=== PATIENT | male | born 1940 | race Caucasian/White ===

== ENCOUNTER 2017-06-05 11:13 | Inpatient (IN) ==
[2017-06-05] MEDS ORDERED: Ondansetron 4 MG/2 ML VIAL IVP ONE ×2 (11:28→13:29)
[2017-06-05] MEDS ORDERED: 0.9 % Sodium Chloride 1,000 ML IVC ONE (11:28)
[2017-06-05 11:43] LABS: Basophils % 0.3 %; Eosinophils # 0.1 K/mcL (0.0-0.6); Eosinophils % 1.1 %; Hematocrit 36.5 % (37.5-50.1); Immature Granulocytes % 0.5 % (0-4); Lymphocytes # 1.3 K/mcL (0.6-4.6); Lymphocytes % 14.4 %; Mean Corpuscular HGB Conc 32.9 g/dL (31.6-35.5); Mean Corpuscular Hemoglobin 27.1 pg (28.0-33.3); Mean Corpuscular Volume 82.6 fL (83.0-100.0); Mean Platelet Volume 9.2 fL (9.4-12.4); Monocytes # 0.7 K/mcL (0.0-1.3); Monocytes % 7.5 %; Neutrophils # 6.7 K/mcL (1.6-8.9); Platelet Count 256 K/mcL (140-400); Red Blood Count 4.42 M/mcL (4.19-5.50); Red Cell Distribution Width 12.8 % (11.5-14.5); Segmented Neutrophils % 76.2 %
--- NOTE | 2017-06-05 11:45 | Emergency Department Note ---
Disposition Clinical Impression: Lytic bone lesion of hip, Lesion of lumbar spine, Liver metastasis Disposition: Admitted As Inpatient Condition: Fair Referrals: Mundo Grewal MD [Primary Care Provider] - Forms: ED Satisfaction Letter, Work/School Release General Adult HPI - General Chief complaint: ED Abdominal Pain Stated complaint: R flank pain Time Seen by Provider: 06/05/17 11:22 Source: patient Mode of arrival: private vehicle Limitations: no limitations Nursing Notes Reviewed: Yes Vital Signs Reviewed: Yes - History of Present Illness HPI Narrative: 77-year-old male history of diabetes, hypertension, hyperlipidemia presents to the ER due to right-sided pain. Patient states he has had it for several days. He was seen by his primary care provider who performed x-rays and was also concern for maybe shingles without the rash it. Reports that he gave him some narcotics but those seem to make him sick. He continued to have pain and had nausea and vomiting this morning which prompted him to come here. He denies chest pain or shortness of breath. Distal nauseated this morning with some vomiting. No dysuria or hematuria. No history of kidney stones. Did have an abdominal surgery for hernia repair with mesh in the past. Does report that this pain worsened after he was coughing. No other complaints. Pt Subjective Complaint: Right flank and right rib pain Onset (ago): day(s) Location: chest (Right ribs) Radiation: non-radiation Pain Severity: severe Pain Scale: 10 Consistency: intermittent Improves with: nothing Worsens with: other (Palpation) Associated symptoms: Reports: cough, nausea/vomiting. Denies: chest pain, fever /chills Treatments Prior to Arrival: other (Analgesic) - Related Data Home Medications Medication Instructions Recorded Confirmed Blood Pressure Medication 02/28/17 Previous Rx's Medication Instructions Recorded Lisinopril/Hydrochlorothiazide 1 each PO DAILY #30 tablet 02/28/17 [Zestoretic 20-25 mg Tablet] Allergies Allergy/AdvReac Type Severity Reaction Status Date / Time metformin AdvReac Gastrointestinal Verified 06/05/17 13:55 Upset All systems ED: reviewed and negative except as stated. Constitutional: Denies: fever Cardiovascular: Denies: chest pain Respiratory: Reports: cough. Denies: dyspnea Gastrointestinal: Reports: nausea, vomiting. Denies: abdominal pain, diarrhea Genitourinary: Denies: dysuria, hematuria Past Medical History - Past Medical History Attestation: Yes The following information was validated with the patient. Source: patient Medical history: Reports: diabetes, hypertension Psychiatric history: Reports: no psych history - Social History Smoking Status: Never smoker Smokeless Tobacco Status: No Alcohol use: Reports: none Drug use: Reports: none Physical Exam - General Limitations: no limitations General appearance: alert, in no apparent distress - Head Head exam: atraumatic - Eye Eye exam: Present: normal appearance - ENT ENT exam: normal exam - Neck Neck exam: Present: normal inspection, full ROM - Chest Chest inspection: Present: normal inspection, symmetric chest wall rise, tenderness (Right lower lateral rib tenderness without overlying skin changes.) - Respiratory Respiratory exam: Present: normal lung sounds bilaterally - Cardiovascular Cardiovascular exam: Present: regular rate, normal rhythm, normal heart sounds - Abdominal Exam Abdominal exam: Present: soft, tenderness (There is mild tenderness in the right upper quadrant without Andrews sign, distention, or rigidity.) - Extremities Exam Extremities exam: Present: normal inspection, full ROM - Expanded Upper Extremity Exam Shoulder exam: Present: normal inspection, full ROM Arm exam: Present: normal inspection, full ROM Elbow exam: Present: normal inspection, full ROM Forearm/Wrist exam: Present: normal inspection, full ROM Hand exam: Present: normal inspection, full ROM - Expanded Lower Extremity Exam Hip/Pelvis exam: Present: normal inspection, full ROM Upper leg exam: Present: normal inspection, full ROM Knee exam: Present: normal inspection, full ROM Lower leg exam: Present: normal inspection, full ROM Ankle exam: Present: normal inspection, full ROM Foot/toe exam: Present: normal inspection, full ROM Neurovascular/Tendon exam: Absent: motor deficit, sensory deficit - Neurological Exam Neurological exam: Present: alert - Psychiatric Psychiatric exam: Present: normal affect, normal mood - Skin Skin exam: Present: warm, dry, intact Course Course Narrative: Patient seen and examined. We will obtain right rib x-rays as well as a CT scan of the abdomen and pelvis and labs. - Reevaluation(s) Reevaluation #1: I discussed the findings of the CT scan as well as labs with the patient and family present. Discussed concern for underlying malignancy with metastasis. He is agreeable to staying in the hospital and having his workup started as an inpatient. - Consultations Consultation #1: I spoke with the on-call oncologist concerning the patient's CT findings. They report given lytic lesions in his probably in the patient's best interest to be admitted to the hospital for workup. Oncology will see in consultation admitted to the hospitalist service. Vital Signs Temperature 97.7 F 06/05/17 11:14 Pulse Rate 72 06/05/17 11:14 Respiratory Rate 20 06/05/17 11:14 Blood Pressure 146/76 06/05/17 11:14 O2 Sat by Pulse Oximetry 94 06/05/17 11:14 Temperature 97.7 F 06/05/17 11:14 Pulse Rate 72 06/05/17 11:14 Respiratory Rate 20 06/05/17 11:14 Blood Pressure 146/76 06/05/17 11:14 O2 Sat by Pulse Oximetry 94 06/05/17 11:14 Oxygen Delivery Oxygen Delivery Room Air Medical Decision Making - MDM Narrative Medical decision making narrative: 77-year-old gentleman presents to the ER due to right flank pain and right upper quadrant pain. Recently worked up by his PCP with x-ray showing no acute findings. CT scan here demonstrates concern for metastatic malignancy. He has lesions noted to his liver as well as pelvis and abdominal lymphadenopathy. There are lytic lesions in his pelvis as well as his lumbar spine. Case discussed with oncology who recommended admission to the hospitalist service. Patient is accepted for further inpatient workup. - Lab Data Lab results reviewed: Yes I reviewed the patient's lab results. Result diagrams: 06/05/17 11:33 06/05/17 11:33 Lab Results 06/05/17 06/05/17 06/05/17 Range/Units 11:33 11:33 12:49 WBC 8.8 (4.3-11.1) K/mcL RBC 4.42 (4.19-5.50) M/mcL Hgb 12.0 L (12.9-16.9) g/dL Hct 36.5 L (37.5-50.1) % MCV 82.6 L (83.0-100.0) fL MCH 27.1 L (28.0-33.3) pg MCHC 32.9 (31.6-35.5) g/dL RDW 12.8 (11.5-14.5) % Plt Count 256 (140-400) K/mcL MPV 9.2 L (9.4-12.4) fL Immature Gran % 0.5 (0-4) % Seg Neutrophils % 76.2 % Lymphocytes % 14.4 % Monocytes % 7.5 % Eosinophils % 1.1 % Basophils % 0.3 % Neutrophils # 6.7 (1.6-8.9) K/mcL Lymphocytes # 1.3 (0.6-4.6) K/mcL Monocytes # 0.7 (0.0-1.3) K/mcL Eosinophils # 0.1 (0.0-0.6) K/mcL Basophils # 0.0 (0.0-0.2) K/mcL Sodium 135 L (136-145) mEq/L Potassium 4.1 (3.5-4.5) mEq/L Chloride 102 (98-109) mEq/L Carbon Dioxide 23 (19-29) mEq/L BUN 29 H (8-26) mg/dL Creatinine 1.02 (0.72-1.25) mg/dL Est GFR ( Amer) > 60 (> 60) Est GFR (Non-Af Amer) > 60 (> 60) BUN/Creatinine Ratio 28 H (6-26) Glucose 208 H (70-99) mg/dL Calculated Osmolality 292 (280-300) Calcium 10.6 (8.6-10.8) mg/dL Total Bilirubin 0.8 (0.2-1.2) mg/dL Direct Bilirubin 0.4 (0.0-0.5) mg/dL Indirect Bilirubin 0.4 (0.0-1.2) mg/dL AST 29 (5-34) Units/L ALT 31 (0-55) Units/L Alkaline Phosphatase 375 H (38-126) Units/L Serum Total Protein 9.0 H (6.0-8.3) g/dL Albumin 3.5 (3.5-5.0) g/dL Globulin 5.5 H (2.4-3.5) g/dL Albumin/Globulin Ratio 0.6 L (1.1-2.2) Lipase 36 (8-78) Units/L Urine Color Yellow (Yellow) Urine Clarity Clear (Clear) Urine pH 6.0 (5.0-8.0) pH Units Ur Specific [place] 1.024 (1.010-1.025) Urine Protein Negative (Neg-Trace) mg/dL Urine Glucose (UA) Normal (Normal) mg/dL Urine Ketones Negative (Negative) mg/dL Urine Blood Negative (Negative) Urine Nitrite Negative (Negative) Urine Bilirubin Negative (Negative) Urine Urobilinogen Normal (Normal) mg/dL Ur Leukocyte Esterase Negative (Negative) Ur Culture Indicated? NO (NO) - Radiology Data Radiology results reviewed: Yes I reviewed the patient's radiology results. Ribs w/Chest X-Ray 06/05/17 11:35 IMPRESSION: No acute cardiopulmonary disease. No acute osseous abnormality of the right ribs. D/ / John Loja MD / John Loja MD Interpreting Provider: John Loja MD Abdomen/Pelvis CT 06/05/17 12:04 IMPRESSION: Findings consistent with metastatic disease involving the liver, pelvis and abdominal lymph nodes. No definite primary is visualized. Large liver lesion would be amenable to percutaneous biopsy. Several pulmonary nodules are indeterminate and could represent metastatic disease. Nonobstructing nephrolithiasis and several calculi within the bladder. Bladder wall thickening is likely secondary to outlet obstruction from marked prostatomegaly, however this could be further evaluated with cystoscopy. Findings were discussed with Arnel Guthrie at 1:00 pm on 06/05/2017. D/ / Sundeep Noble MD / Sundeep Noble MD Interpreting Provider: Sundeep Noble MD - EKG Data EKG #1 EKG attestation: Yes I reviewed and interpreted this EKG. EKG results narrative: EKG demonstrates sinus rhythm with a rate of 64 bpm. Normal axis. Normal intervals. Normal R-wave progression. No gross ST elevations or depressions. No acute ischemic findings. S.B.A.R. - S.B.A.R. Situation: Demographics, MOA Background: Presenting Complaint, Relevant PMH, Meds, & Allergies Assessment: Course and respsone to treatment, Patient/Family Expectation, Pertinant Lab Results Recommendation: Barrier(s) to disposition, Recommendation based on pending studies, treatments, or consults S.B.A.R. Report Given to: Jamel Mcclain Repor Time: 13:56 Attestation Statement - Attestation Attestation: Patient was seen with resident physician. I reviewed the history, physical, assessment and plan, and agree with the findings. I also personally evaluated this patient and had [id number] time with this patient. 77 show male presents to emergency department for right upper quadrant and right flank pain. Patient states the discomfort started after coughing and sneezing episodes. No hurts with deep inspiration and with pressure on his lateral right rib cage. He has also had some right upper quadrant pain that seems to radiate around to the side. No nausea vomiting or diarrhea no fevers or chills no chest pain or shortness of breath. He had something similar to this in the past and it was thought he may have early shingles, but no rash ever developed. On exam vital signs are stable. ENT is unremarkable. Heart lungs are normal. Chest wall patient has reproducible tenderness of the lateral aspect of the right rib cage distally. This lower portion of the ribs are very tender to palpation there is no crepitance that can be noted. Examination of the abdomen did not reveal any tenderness in the right upper quadrant on the left side he did have a little bit of flank tenderness which seems to be related to the pressure applies to the rib cage when pushing on that area. Extremities are unremarkable. Neurologically is patient is intact. ED course we will do a thorough workup to ensure there is no intra-abdominal problems. Patient is been seen multiple times for this problem without a specific clinical diagnosis. We will also get rib x-rays and labs. X-rays are okay. CT scan however revealed pretty extensive metastatic disease throughout the abdomen including the bones also including with an enlarged prostate. This does explain sort of the mobility of the patient's pain as he has had it in different locations. We spoke with oncology who suggested admitting the patient for more extensive and rapid evaluation and treatment is seems at this disease has somewhat extensively spread. Patient was comfortable with admission. He was informed of the CT scan results. We then contacted the hospitalist to arrange admission.. I agree with the resident physician assessment and plan.
[2017-06-05 11:57] LABS: Alanine Aminotransferase 31 Units/L (0-55); Albumin 3.5 g/dL (3.5-5.0); Albumin/Globulin Ratio 0.6 (1.1-2.2); Alkaline Phosphatase 375 Units/L (38-126); Aspartate Amino Transferase 29 Units/L (5-34); BUN/Creatinine Ratio 28 (6-26); Bilirubin,Direct 0.4 mg/dL (0.0-0.5); Bilirubin,Indirect 0.4 mg/dL (0.0-1.2); Bilirubin,Total 0.8 mg/dL (0.2-1.2); Blood Urea Nitrogen 29 mg/dL (8-26); Calcium 10.6 mg/dL (8.6-10.8); Carbon Dioxide 23 mEq/L (19-29); Chloride 102 mEq/L (98-109); Globulin 5.5 g/dL (2.4-3.5); Glucose 208 mg/dL (70-99); Lipase 36 Units/L (8-78); Osmolality,Calculated 292 (280-300); Potassium 4.1 mEq/L (3.5-4.5); Sodium 135 mEq/L (136-145); eGFR For African Americans > 60 (> 60); eGFR For Non-African Americans > 60 (> 60)
[2017-06-05] MEDS ORDERED: Ketorolac 15 MG/ML VIAL IVP ONE (11:59)
[2017-06-05 12:57] LABS: Bilirubin,Urine Negative (Negative); Blood,Urine Negative (Negative); Clarity,Urine Clear (Clear); Color,Urine Yellow (Yellow); Glucose,Urine (UA) Normal (Normal); Ketones,Urine Negative (Negative); Leukocyte Esterase,Urine Negative (Negative); Nitrite,Urine Negative (Negative); Protein,Urine Negative (Neg-Trace); Specific Gravity,Urine 1.024 (1.010-1.025); Urobilinogen,Urine Normal (Normal)
--- NOTE | 2017-06-05 15:01 | Oncology Inp Consult Note ---
Date of Encounter: 06/05/17 Time of Encounter: 14:53 Assessment and Plan (1) Liver metastasis Status: Acute Assessment and plan: - I discussed with Mr. Guzman and his the findings of his CT abdomen/pelvis that reveal findings highly suggestive of metastatic disease, these included lesions at the level of the liver, pelvis, abdominal lymphadenopath. No definitive primary identified. Another inconclusive findings include pulmonary nodules, bladder wall thickening, prostamegaly. - I discussed my recommendations to perform serum tumor markers that would help to narrow the differential diagnosis. - I discussed my recommendations to perform a CT guided liver biopsy, in view that that the liver lesion seems to be amenable to percutaneous biopsy. - His presentation is not characteristic of multiple myeloma, but the presence of mixed lytic lesions raises some level of concern about this possibility. Will order work up to rule out a plasma cell disorder. - he reports a history of abnormal gait of unclear etiology ( although denies recent falls). I'd consider brain imaging. Recommendations: - Check PT and APTT in preparation for biopsy. - Please order serum PSA, CA19-9, CA27-29, AFP, B-HCG, LDH, CA125, CEA. - Please check CT chest - Consider brain imaging in view of history of abnormal gait. - Check SPEP, UPEP, serum free light chains, blood smear. - Please arrange for CT guided biopsy of liver lesion. If CT guided biopsy cannot be scheduled during the next few days and his clinical status remains stable, can consider to schedule it as outpatient with oncology follow up. - Upon discharge, please arrange for a short outpatient oncology follow up. - Data of Consult Requesting Physician: Nafisa Panda MD Primary Care Provider: Mundo Grewal MD - Consult Narrative Reason for consult: CT scan suggestive of metastatic disease. History of present illness: Mr. Guzman is a 77 year old male with history of HTN presenting to the ED with a 3 day history of RUQ abdominal pain. CT scan of the abdomen reveled multiple lesions at the level of liver, sacral, pelvis area suggestive of metastatic disease. Oncology consult requested to help with the work up. Mr. Guzman was seen accompanied by his . He reports that for the last 3 days has noticed gradually worsening RUQ abdominal pain, rated as 8 out of 10, although positional and sometimes hitting up to 10/10. He was not taking pain killers since this upset his stomach. He reports an abnormal gait, but not focal weakness or history of falls. He reports a history of DM and HTN. Denies history of smoking. Denies recent cough or respiratory complaints. Denies history of alcohol abuse. Past Med Surg Social Fam HX - Past Medical History Medical history: diabetes, hypertension Psychiatric history: no psych history - Social History Smoking Status: Never smoker Smokeless Tobacco Status: No Alcohol use: none Drug use: none Medications and Allergies Aspirin [Lo-Dose Aspirin EC] 81 mg PO DAILY 06/05/17 [History] Atorvastatin [Lipitor] 40 mg PO HS 06/05/17 [History] HYDROcodone/Acet 5/325 mg [[place] 5-325 mg] 1 tab PO Q6H PRN 06/05/17 [History] Lisinopril/Hydrochlorothiazide [Zestoretic 20-25 mg Tablet] 1 tab PO DAILY 06/05 [History] Meloxicam [Meloxicam] 7.5 mg PO DAILY 06/05/17 [History] 3 Allergy/AdvReac Type Severity Reaction Status Date / Time metformin AdvReac Gastrointestinal Verified 06/05/17 13:55 Upset Constitutional: Present: anorexia. Absent: fatigue, fever(s), frequent falls Eyes: Absent: blind spots, blurry vision Cardiovascular: Absent: chest pain with activity, claudication, dyspnea on exertion Respiratory: Absent: cough, dyspnea, wheezing Gastrointestinal: Present: abdominal pain. Absent: bloating, hematemesis, hematochezia Musculoskeletal: Present: abnormal gait. Absent: muscle weakness Neurological: Present: abnormal gait. Absent: dizziness, lack of coordination Psychiatric: Absent: behavioral changes, hallucinations Hematologic/Lymphatic: Present: as per HPI. Absent: easy bleeding Oncology - Exam - Constitutional Vitals: Temp Pulse Resp BP Pulse Ox 97.7 F 72 18 142/78 94 06/05/17 11:14 06/05/17 11:14 06/05/17 14:22 06/05/17 14:22 06/05/17 11:14 - Head Head exam: Present: normal inspection, normocephalic - Eye Eye exam: Present: EOMI, PERRL - ENT ENT exam: Present: normal exam, normal external ear exam, normal oropharynx - Neck Neck exam: Present: normal inspection. Absent: tenderness - Respiratory Respiratory exam: Present: CTAB. Absent: rales, respiratory distress - Cardiovascular Cardiovascular exam: Present: RRR. Absent: systolic murmur - GI/Abdominal GI/Abdominal exam: Present: normal bowel sounds, soft, tenderness (Right upper quadrant abdominal tenderness. No rebound. no splenomegaly.) - Back Exam Back exam: Present: normal inspection. Absent: paraspinal tenderness - Neurological Exam Neurological exam: Present: alert, oriented X3. Absent: CN II-XII intact - Psychiatric Psychiatric exam: Present: normal affect, normal mood - Skin Skin exam: Present: normal color Consult Discharge Plan - Plan Referrals: Mundo Grewal MD [Primary Care Provider] -
[2017-06-05] MEDS ORDERED: *HR* Morphine 2 MG/ML SYRINGE IVP PRN (16:57)
[2017-06-05] MEDS ORDERED: Acetaminophen 325 MG TABLET PO PRN (16:57)
[2017-06-05] MEDS ORDERED: Naloxone 0.4 MG/ML INJ IVP PRN (16:57)
[2017-06-05] MEDS ORDERED: Ondansetron 4 MG/2 ML VIAL IVP PRN (16:57)
[2017-06-05] MEDS ORDERED: Dextrose Gel 15 GM PO PRN ×2 (17:01)
[2017-06-05] MEDS ORDERED: D5% in Water 1,000 ML IVC PRN (17:01)
[2017-06-05] MEDS ORDERED: *HR* Dextrose 50 % in Water (Syg) 50 ML SYRINGE IVP PRN (17:01)
--- NOTE | 2017-06-05 17:13 | Internal Med History&Physical ---
Date of Encounter: 06/05/17 Time of Encounter: 16:40 Assessment and Plan (1) Liver metastasis Current visit: Yes Status: Acute Acute on chronic right flank pain and right upper quadrant pain - secondary to metastatic disease involving the liver, pelvis, abdominal lymphadenopathy and large mixed lytic lesions involving left sacrum and left iliac and lumbar spine Continue IV Morphine PRN, Tylenol PRN, IV fluids, Heparin for DVT prophylaxis CT abdomen and pelvis - reviewed Serum tumor markers - pending CT chest - pending MRI brain -pending SPEP/UPEP - pending Ribs with chest x-ray - no acute cardiopulmonary process, no osseous abnormality of the ribs EKG - sinus rhythm with no acute ST-T changes Oncology consult - recommendations reviewed, appreciate input Interventional radiology consult - liver biopsy in the morning Cardiac telemetry, labs in a.m., monitor closely (2) Hypertension Current visit: Yes Status: Chronic Essential hypertension, controlled, monitor Continue home dose of Lisinopril/HCTZ Qualifiers: Hypertension type: essential hypertension Qualified Code(s): I10 - Essential (primary) hypertension (3) Hyperlipidemia Current visit: Yes Status: Chronic Lipid panel pending Continue home dose of Lipitor Qualifiers: Hyperlipidemia type: unspecified Qualified Code(s): E78.5 - Hyperlipidemia , unspecified (4) Type 2 diabetes mellitus Current visit: Yes Status: Acute Type 2 diabetes mellitus, [id number], hyperglycemia Continue insulin sliding scale, glucose checks Patient states he is on Metformin at home, but he has not been taking this due to adverse effect of diarrhea Qualifiers: Diabetes mellitus complication status: without complication Diabetes mellitus termite renewal inspector insulin use: without termite renewal inspector use Qualified Code(s): E11.9 - Type 2 diabetes mellitus without complications (5) DVT prophylaxis Current visit: Yes Status: Acute Continue heparin subcutaneous Internal Medicine - H&P: HPI Chief complaint: Right upper quadrant abdominal pain Admitted From: Emergency Dept Plans for Post Hospital Care: Home History of present illness: Mr. Guzman is a 77 year old male with past medical history of hyperlipidemia, hypertension, diabetes and arthritis presents to the ED with complaints of right upper quadrant pain and right flank pain. Examined in the room. Patient is awake and alert. Not in any distress. Able to provide all history. No family members at bedside. Patient states his right flank pain started about 3 days ago and has been gradually worsening. He decided to come in today because the pain was severe on his right side and was also radiating up to his right upper quadrant. He states pain could have possibly started a few months ago and has been intermittent. But it has been more constant and frequent over the past 3 days. Initially he rates the pain 7 out of 10, now it is 4 out of 10. No aggravating factors. Alleviated with pain meds. Patient states he does have arthritis and has been taking pain medication for that as well. Patient also complains of associated nausea but no vomiting. He denies diarrhea or any blood in stool. He denies chest pain or shortness of breath or cough or dizziness or headache. No other associated symptoms. No other acute complaints. Patient does report about 10 pound weight loss over the past 4 weeks. Initial workup in the ED revealed findings consistent with metastatic disease involving the liver, pelvis and abdominal lymph nodes. Several pulmonary nodules are indeterminate and could represent metastatic disease. Patient does have nonobstructing nephrolithiasis. Bladder wall was thickened likely due to prostatomegaly. Patient is being admitted for acute abdominal pain and right flank pain due to metastatic disease. Oncology has evaluated the patient. He will need a liver biopsy in the morning. Patient has been explained about his condition and plan of care in detail. He understood and agreed. No unanswered questions. CODE STATUS full code. Past Med Surg Social Fam HX - Past Medical History Medical history: diabetes, hypertension Psychiatric history: no psych history - Past Surgical History Surgical History: herniorrhaphy - Social History Smoking Status: Never smoker Smokeless Tobacco Status: No Alcohol use: none Drug use: none - Family History Mother Hx Family GI Disorders: No Internal Medicine - H&P: Meds Aspirin [Lo-Dose Aspirin EC] 81 mg PO DAILY 06/05/17 [History] Atorvastatin [Lipitor] 40 mg PO HS 06/05/17 [History] HYDROcodone/Acet 5/325 mg [[place] 5-325 mg] 1 tab PO Q6H PRN 06/05/17 [History] Meloxicam [Meloxicam] 7.5 mg PO DAILY 06/05/17 [History] RX: Lisinopril/Hydrochlorothiazide [Zestoretic 20-25 mg Tablet] 1 tab PO DAILY 06/05/17 [History] 3 Allergy/AdvReac Type Severity Reaction Status Date / Time metformin AdvReac Gastrointestinal Verified 06/05/17 13:55 Upset All Systems PM: A 10-system review of systems was performed and is negative for pertinent findings except as documented above in the HPI. - Constitutional Constitutional: fatigue, weight loss, no fever(s), no weakness - EENT Eyes: no blurry vision - Cardiovascular Cardiovascular ROS IM: no chest pain, no diaphoresis, no dyspnea, no dyspnea on exertion, no lightheadedness, no orthopnea, no palpitations, no syncope - Respiratory Respiratory: no cough, no dyspnea, no hemoptysis, no dyspnea on exertion, no wheezing, no chest congestion - Gastrointestinal Gastrointestinal: abdominal pain, bloating, nausea, no belching, no constipation , no cramping, no diarrhea, no dyspepsia, no heartburn, no hematemesis, no hematochezia, no melena, no vomiting - Genitourinary Genitourinary ROS male: no dysuria - Neurological Neurological ROS: no abnormal gait, no confusion, no dizziness, no focal weakness, no loss of vision, no numbness, no tingling - Constitutional Vitals: Temp Pulse Resp BP Pulse Ox 97.9 F 78 18 149/75 100 06/05/17 15:19 06/05/17 15:19 06/05/17 15:19 06/05/17 15:19 06/05/17 15:19 General appearance: Present: cooperative, A&O X 3, pleasant, no acute distress, answers questions appropriately - Head Head exam: Present: atraumatic - Eye Eye exam: Present: EOMI - ENT ENT exam: Present: mucous membranes moist - Respiratory Respiratory exam: Present: CTAB. Absent: rales, rhonchi, wheezes, tachypnea - Cardiovascular Cardiovascular exam: Present: RRR, +S1, +S2 - GI/Abdominal GI/Abdominal exam: Present: normal bowel sounds, soft, tenderness (Mild right flank tenderness, no RUQ tenderness), no peritoneal signs. Absent: distended, firm, guarding - Extremities Exam Extremities exam: Present: radial pulses palpable and symmetrical. Absent: calf tenderness, cyanotic, pedal edema - Neurological Exam Neurological exam: Present: alert, oriented X3, no focal deficits. Absent: facial droop, speech deficit Internal Med - H&P Results - Labs CBC & Chem 7: 06/05/17 11:33 06/05/17 11:33
[2017-06-05] MEDS: 0.9 % Sodium Chloride 1,000 ML IVC SCH (17:32)
[2017-06-05] MEDS: *HR* Heparin 5,000 UNIT/ML VIAL SQ SCH (17:33)
[2017-06-05] MEDS: Famotidine 20 MG/2 ML VIAL IVP SCH (17:33)
[2017-06-05 17:38] LABS: INR 1.3; Prothrombin Time 14.6 Seconds (9.4-12.1)
[2017-06-05] MEDS: Insulin LISPRO 300 UNITS/3 ML VIAL SQ SCH ×2 (18:50→21:49)
[2017-06-05 20:45] LABS: Carcinoembryonic Antigen 1.3 ng/mL (0-5.0)
[2017-06-06 05:08] LABS: Basophils % 0.3 %; Eosinophils # 0.1 K/mcL (0.0-0.6); Eosinophils % 1.8 %; Hematocrit 29.8 % (37.5-50.1); Immature Granulocytes % 0.3 % (0-4); Lymphocytes # 1.1 K/mcL (0.6-4.6); Lymphocytes % 16.5 %; Mean Corpuscular HGB Conc 32.9 g/dL (31.6-35.5); Mean Corpuscular Hemoglobin 27.1 pg (28.0-33.3); Mean Corpuscular Volume 82.5 fL (83.0-100.0); Mean Platelet Volume 9.6 fL (9.4-12.4); Monocytes # 0.6 K/mcL (0.0-1.3); Monocytes % 9.7 %; Neutrophils # 4.7 K/mcL (1.6-8.9); Platelet Count 225 K/mcL (140-400); Red Blood Count 3.61 M/mcL (4.19-5.50); Red Cell Distribution Width 12.8 % (11.5-14.5); Segmented Neutrophils % 71.4 %
[2017-06-06 05:27] LABS: Hemoglobin 9.8 g/dL (12.9-16.9)
[2017-06-06 05:29] LABS: BUN/Creatinine Ratio 24 (6-26); Blood Urea Nitrogen 22 mg/dL (8-26); Calcium 9.7 mg/dL (8.6-10.8); Carbon Dioxide 24 mEq/L (19-29); Chloride 106 mEq/L (98-109); Chol/HDL Ratio 4.3 (0-4.9); Cholesterol 90 mg/dL (< 200); Glucose 173 mg/dL (70-99); HDL Cholesterol 21 mg/dL (40-59); LDL Cholesterol,Calculated 50 mg/dL (0-99); Magnesium 1.6 mg/dL (1.6-2.6); Osmolality,Calculated 293 (280-300); Potassium 4.2 mEq/L (3.5-4.5); Sodium 138 mEq/L (136-145); Triglycerides 93 mg/dL (< 150); eGFR For African Americans > 60 (> 60); eGFR For Non-African Americans > 60 (> 60)
[2017-06-06] MEDS: Famotidine 20 MG/2 ML VIAL IVP SCH ×3 (06:09→20:03)
[2017-06-06] MEDS: *HR* Heparin 5,000 UNIT/ML VIAL SQ SCH ×3 (06:36→20:02)
[2017-06-06] MEDS ORDERED: Insulin LISPRO 300 UNITS/3 ML VIAL SQ SCH (07:30)
[2017-06-06] MEDS: Insulin LISPRO 300 UNITS/3 ML VIAL SQ SCH ×4 (09:19→21:23)
--- NOTE | 2017-06-06 10:57 | Internal Med Progress Note ---
Date of Encounter: 06/06/17 Time of Encounter: 08:50 - Assessment and plan (1) Liver metastasis Current Visit: Yes Status: Acute Assessment and plan: Acute on chronic right flank pain and right upper quadrant pain - secondary to metastatic disease involving the liver, pelvis, abdominal lymphadenopathy and large mixed lytic lesions involving left sacrum and left iliac and lumbar spine - abdominal pain has improved slightly Continue IV Morphine PRN, Tylenol PRN, IV fluids, Heparin for DVT prophylaxis CT abdomen and pelvis - reviewed Serum tumor markers - pending CT chest - solid nodules scattered throughout both lungs, hypodense lesion in posterior right buffy-liver MRI brain -pending SPEP/UPEP - pending Ribs with chest x-ray - no acute cardiopulmonary process, no osseous abnormality of the ribs EKG - sinus rhythm with no acute ST-T changes Oncology following - recommendations reviewed, appreciate input Interventional radiology consult - liver biopsy pending Cardiac telemetry, labs in a.m., monitor closely (2) Hypertension Current Visit: Yes Status: Chronic Assessment and plan: Essential hypertension, controlled, monitor Continue home dose of Lisinopril/HCTZ Qualifiers: Hypertension type: essential hypertension Qualified Code(s): I10 - Essential (primary) hypertension (3) Hyperlipidemia Current Visit: Yes Status: Chronic Assessment and plan: Lipid panel - reviewed Continue home dose of Lipitor Qualifiers: Hyperlipidemia type: unspecified Qualified Code(s): E78.5 - Hyperlipidemia , unspecified (4) Type 2 diabetes mellitus Current Visit: Yes Status: Chronic Assessment and plan: Type 2 diabetes mellitus, [id number], hyperglycemia Continue insulin sliding scale, glucose checks Patient states he is on Metformin at home, but he has not been taking this due to adverse effect of diarrhea Qualifiers: Diabetes mellitus complication status: without complication Diabetes mellitus halfway insulin use: without halfway use Qualified Code(s): E11.9 - Type 2 diabetes mellitus without complications (5) DVT prophylaxis Current Visit: Yes Status: Acute Assessment and plan: Continue heparin subcutaneous - Time Spent With Patient 25 - 35 minutes - Subjective Interval history: Examined this morning. Patient is awake and alert. Not in any distress. Denies chest pain or shortness of breath. Hemodynamically stable. No fever. Ambulating well. Denies nausea or vomiting. Complains of mild right flank pain and right upper quadrant pain. Rates it a 4 out of 10. Alleviated with pain medication. No aggravating factors. States his pain is better overall. No other acute events or complaints. Patient will need a liver biopsy. MRI of brain for metastases is pending. Serum tumor markers are pending. Oncology following patient. - Constitutional Vitals: Temp Pulse Resp BP Pulse Ox 98.2 F 69 16 135/79 95 06/06/17 07:06 06/06/17 07:06 06/06/17 07:06 06/06/17 07:06 06/06/17 07:06 General appearance: Present: cooperative, A&O X 3, pleasant, no acute distress, answers questions appropriately - Head Head exam: Present: atraumatic - Eye Eye exam: Present: EOMI - ENT ENT exam: Present: mucous membranes moist - Respiratory Respiratory exam: Present: CTAB. Absent: accessory muscle use, rales, rhonchi, wheezes, tachypnea - Cardiovascular Cardiovascular exam: Present: RRR, +S1, +S2 - GI/Abdominal GI/Abdominal exam: Present: soft, tenderness (Mild right upper quadrant tenderness and right flank tenderness), no peritoneal signs. Absent: distended , firm, guarding - Extremities Exam Extremities exam: Present: radial pulses palpable and symmetrical. Absent: calf tenderness, cyanotic, pedal edema - Neurological Exam Neurological exam: Present: alert, oriented X3, no focal deficits. Absent: facial droop, speech deficit Internal Medicine: Result - Labs CBC & Chem 7: 06/06/17 04:31 06/06/17 04:31 Labs: Short CBC 06/06/17 Range/Units 04:31 WBC 6.6 (4.3-11.1) K/mcL Hgb 9.8 L D (12.9-16.9) g/dL Hct 29.8 L (37.5-50.1) % Plt Count 225 (140-400) K/mcL Neutrophils # 4.7 (1.6-8.9) K/mcL BMP 06/06/17 04:31 Sodium 138 Potassium 4.2 Chloride 106 Carbon Dioxide 24 BUN 22 Creatinine 0.92 Glucose 173 H Calcium 9.7 Cardiac Enzymes 06/05/17 06/05/17 06/06/17 Range/Units 17:08 22:30 04:31 Troponin I 0.00 0.01 0.01 (0-0.03) ng/mL - ABG Interpretation ABG results: PT/INR, D-dimer PT 14.6 Seconds (9.4-12.1) H 06/05/17 17:08 - Impressions Impressions Chest CT 06/05/17 17:34 IMPRESSION: 1. A few solid nodules scattered throughout both lungs measure up to 0.8 cm x 0.5 cm and are suspicious for metastatic disease given the findings on the earlier abdomen and pelvis CT. A few nodules have suspected groundglass halos, suggesting associated hemorrhage. Infectious or inflammatory etiologies could result in a similar appearance. 2. Ill-defined hypodense lesion in the posterior right hemiliver, likely malignancy. Partially included metastatic portohepatic and portocaval lymphadenopathy. Potential primary locations include urinary bladder and prostate with liver considered less likely given a pelvic skeletal metastasis. D/ / Papo Ch MD / Papo Ch MD Interpreting Provider: Papo Ch MD Consult Discharge Plan - Plan Referrals: Mundo Grewal MD [Primary Care Provider] -
--- NOTE | 2017-06-06 12:36 | IR Procedure Note ---
Date of procedure: 06/06/17 Consent Obtained: Written consent Timeout: Correct patient and procedure verified, Correct site verified, Time out performed, Skin prep completed Local anesthetic: Lidocaine 1% Indications: Liver, lung, and skeletal metastasis Procedure Performed: Left iliac bone biopsy. This was chosen as less risk than liver biopsy. Site/Technique: Left iliac bone bx doing without difficulty. Lesional material. Results/Findings: Tolerated well. No immediate complications. Surgiflo used. Estimated blood loss (cc): 5 Complications: None; Tolerated procedure well Post Procedure Treatment Plan: Monitoring in pts room
[2017-06-06] MEDS: 0.9 % Sodium Chloride 1,000 ML IVC SCH (16:18)
--- NOTE | 2017-06-06 17:21 | Electrocardiograph Report ---
[address] [address] Test Date: 2017-06-05 Pat Name: Amairani Guzman Department: 103 Room: 3A48 Gender: M Ocular Care Aide: AM : 1940 Requested By: Arnel Guthrie Order Number: [id number] Reading MD: Elisha Sandhu Measurements Intervals Dwight Rate: 64 P: 31 VA: 187 QRS: -7 QRSD: 98 T: 4 QT: 389 QTc: 398 Interpretive Statements SINUS RHYTHM ARTIFACT Electronically Signed On 06-06-2017 17:19:20 EDT by Elisha Sandhu
[2017-06-07 06:28] LABS: Basophils % 0.4 %; Eosinophils # 0.1 K/mcL (0.0-0.6); Eosinophils % 1.7 %; Hematocrit 34.4 % (37.5-50.1); Hemoglobin 11.2 g/dL (12.9-16.9); Immature Granulocytes % 0.5 % (0-4); Lymphocytes # 1.2 K/mcL (0.6-4.6); Lymphocytes % 14.8 %; Mean Corpuscular HGB Conc 32.6 g/dL (31.6-35.5); Mean Corpuscular Hemoglobin 26.7 pg (28.0-33.3); Mean Corpuscular Volume 81.9 fL (83.0-100.0); Mean Platelet Volume 9.9 fL (9.4-12.4); Monocytes # 0.8 K/mcL (0.0-1.3); Monocytes % 9.3 %; Neutrophils # 6.2 K/mcL (1.6-8.9); Platelet Count 238 K/mcL (140-400); Red Cell Distribution Width 13.1 % (11.5-14.5); Segmented Neutrophils % 73.3 %
[2017-06-07] MEDS: *HR* Heparin 5,000 UNIT/ML VIAL SQ SCH (06:31)
[2017-06-07] MEDS: Famotidine 20 MG/2 ML VIAL IVP SCH (06:34)
[2017-06-07] MEDS: Insulin LISPRO 300 UNITS/3 ML VIAL SQ SCH ×2 (08:37→12:11)
[2017-06-07 11:38] VITALS: BP 130/68
--- NOTE | 2017-06-07 11:52 | Discharge Summary ---
Date of Encounter: 06/07/17 Time of Encounter: 08:20 - Discharge Diagnosis (1) Liver metastasis Priority: Primary Status: Acute Comments: Acute on chronic right flank pain and right upper quadrant pain - secondary to metastatic disease involving the liver, pelvis, abdominal lymphadenopathy and large mixed lytic lesions involving left sacrum and left iliac and lumbar spine - symptoms are now improved - unclear primary lesion Continue Bronson PRN CT abdomen and pelvis - reviewed Serum tumor markers - reviewed CT chest - solid nodules scattered throughout both lungs, hypodense lesion in posterior right buffy-liver MRI brain - no evidence of intracranial metastatic disease, no acute abnormality SPEP/UPEP - pending Ribs with chest x-ray - no acute cardiopulmonary process, no osseous abnormality of the ribs EKG - sinus rhythm with no acute ST-T changes Oncology following - recommendations reviewed, appreciate input - discussed with Dr. Leo Narayan, advised outpatient follow-up Interventional radiology consult - left iliac bone biopsy done over liver biopsy due to less risk Advised patient to return if symptoms worsen, needs close outpatient follow-up with PCP and oncology (2) Hypertension Priority: Secondary Status: Chronic Comments: Essential hypertension, controlled, monitor Continue home dose of Lisinopril/HCTZ Qualifiers: Hypertension type: essential hypertension Qualified Code(s): I10 - Essential (primary) hypertension (3) Hyperlipidemia Priority: Secondary Status: Chronic Comments: Lipid panel - reviewed Continue home dose of Lipitor Qualifiers: Hyperlipidemia type: unspecified Qualified Code(s): E78.5 - Hyperlipidemia , unspecified (4) Type 2 diabetes mellitus Priority: Secondary Status: Chronic Comments: Type 2 diabetes mellitus, [id number], hyperglycemia Continue home dose of Metformin Patient states he is on Metformin at home, but he has not been taking this due to adverse effect of diarrhea Qualifiers: Diabetes mellitus complication status: without complication Diabetes mellitus detention insulin use: without detention use Qualified Code(s): E11.9 - Type 2 diabetes mellitus without complications - Discharge Medications Prescriptions: RX: HYDROcodone/Acet 5/325 mg [Bronson 5-325 mg] 1 tab PO Q6H PRN #7 tablet PRN Reason: Pain Home Medications: RX: Aspirin [Lo-Dose Aspirin EC] 81 mg PO DAILY 06/05/17 [History] RX: Atorvastatin [Lipitor] 40 mg PO HS 06/05/17 [History] RX: Lisinopril/Hydrochlorothiazide [Zestoretic 20-25 mg Tablet] 1 tab PO DAILY 06/05/17 [History] RX: Meloxicam 7.5 mg PO DAILY 06/05/17 [History] RX: HYDROcodone/Acet 5/325 mg [Bronson 5-325 mg] 1 tab PO Q6H PRN #7 tablet [Rx] Allergies/Adverse Reactions: 3 Allergy/AdvReac Type Severity Reaction Status Date / Time metformin AdvReac Gastrointestinal Verified 06/05/17 13:55 Upset Procedures/tests Complete & Pending: Procedures Performed prior 72 hours Category Date Time Status CT biopsy bone deep [CT] Routine Cat Scan 06/06/[address] chest wo con [CT] Routine Cat Scan 06/05/17 17:34 Completed MR head/brain wo/w con [MR] Routine MRI 06/05/17 17:34 Completed Date of admission: 06/05/17 16:57 Primary care physician: Mundo Grewal MD Consults: 06/05/17 17:00 Consult to Interventional Radiology [CONS] Routine Consulting Provider: Radiology Interventional Cols Reason for Consult: liver biopsy, metastatic disease Call Completed: No Anticipated date of discharge: 06/07/17 - Patient Status Disposition: Home, Self-Care Condition: Good Functional capacity at discharge: independent ambulation Overall status at discharge: patient is progressing back to baseline - Discharge Instructions Follow Up With: Marcia Perez DO [Partnered Physician] - 06/14/17 11:15 am Michael Draper MD [Non-Partnered Physician] - 06/13/17 11:00 am - Diet and Activity Activity: increase activity as tolerated, resume usual activities as tolerated Diet: diabetic diet Hospital course: Mr. Guzman is a 77 year old male with past medical history of diabetes, hypertension, hyperlipidemia and arthritis presented to ED with complaints of right upper quadrant pain and right flank pain. It is not been present for about 3 days prior to admission and was gradually worsening. Initial workup revealed findings consistent with metastatic disease involving the liver, pelvis and abdominal lymph nodes. Patient also had several pulmonary nodules and likely represented metastatic disease. Oncology has evaluated the patient and recommended a full workup. Patient did have CT of his chest showed scattered pulmonary nodules likely metastatic disease. MRI of the brain is negative for metastatic disease. Serum tumor markers were also drawn and CA- 125 is greater than 2000. Patient is on IV morphine as needed for pain and also on Tylenol. His right flank pain and right upper quadrant pain is now completely resolved. Patient underwent a biopsy of left iliac bone by interventional radiology. Liver biopsy was not done due to increased risk. Patient will need close outpatient follow-up with oncology. Patient tolerated all his meds well and also the procedure well. He states he feels better and says he wants to go home. He should and his have been explained about his condition and plan of care in detail. They understood and agreed. Patient has been excellent about need for outpatient follow-up with oncology. Biopsy results are pending. They have been explained that this is likely metastatic disease and the primary lesion at this time is unclear. Patient is ambulating well and tolerating oral diet well. He had no other acute events or complications during his stay. He is being discharged in stable condition. - Time Spent with Patient Total time spent providing and/or coordinating discharge services: Less than 30 minutes - Constitutional Vitals: Temp Pulse Resp BP Pulse Ox 97.6 F 73 16 130/68 96 06/07/17 10:00 06/07/17 10:00 06/07/17 10:00 06/07/17 10:00 06/07/17 10:00 General appearance: Present: cooperative, A&O X 3, pleasant, no acute distress, answers questions appropriately - Head Head exam: Present: atraumatic - Eye Eye exam: Present: EOMI - ENT ENT exam: Present: mucous membranes moist - Respiratory Respiratory exam: Present: CTAB. Absent: rales, rhonchi, wheezes, tachypnea - Cardiovascular Cardiovascular exam: Present: RRR, +S1, +S2 - GI/Abdominal GI/Abdominal exam: Present: soft, no peritoneal signs. Absent: distended, firm , guarding, tenderness - Extremities Exam Extremities exam: Present: radial pulses palpable and symmetrical. Absent: calf tenderness, cyanotic, pedal edema - Neurological Exam Neurological exam: Present: alert, oriented X3, no focal deficits. Absent: facial droop, speech deficit
[2017-06-08 07:53] LABS: Cancer Antigen 27.29 31.7 U/mL (0.0-40.0)
[2017-06-08 11:23] LABS: Kappa Qnt Free Light Chains 3.2 mg/dL (0.33-1.94); Lambda Qnt Free Light Chains 2.29 mg/dL (0.57-2.63)
[2017-06-09 04:26] LABS: Alpha 2 Globulin (PEP) 0.93 g/dL (0.48-1.05); Beta Globulin (PEP) 1.04 g/dL (0.48-1.10)
[2017-06-09 08:00] LABS: IFE Reflexed IFE Done; Immunoglobulin A 465 mg/dL (68-408); Immunoglobulin G 1830 mg/dL (768-1632); Immunoglobulin M 156 mg/dL (35-263)
== END 2017-06-07 14:30 | disposition home or self-care (01) | DRG 940 ==
LOC: 3ANU 11:13 → EMEROO 11:13 → 3ANU 14:36
PROVIDERS: ADMIT Nurse Practitioner Family; ATTEND Internal Medicine

== ENCOUNTER 2017-07-09 09:32 | Inpatient (IN) ==
[2017-07-09] MEDS ORDERED: Ondansetron 4 MG/2 ML VIAL IVP ONE (09:46)
[2017-07-09] MEDS ORDERED: 0.9 % Sodium Chloride 1,000 ML IVC ONE ×2 (09:46→11:58)
--- NOTE | 2017-07-09 09:50 | Emergency Department Note ---
Disposition Clinical Impression: Acute kidney injury Nausea & vomiting Qualifiers: Vomiting type: unspecified Vomiting Intractability: unspecified Qualified Code( s): R11.2 - Nausea with vomiting, unspecified Diarrhea Qualifiers: Diarrhea type: unspecified type Qualified Code(s): R19.7 - Diarrhea, unspecified Disposition: Admitted As Inpatient Condition: Fair Referrals: Marcia Perez DO [Primary Care Provider] - Forms: ED Satisfaction Letter Time of Disposition: 11:19 Nausea/Vomiting/Diarrhea HPI - General Chief complaint: ED Nausea/Vomiting/Diarrhea Stated complaint: nausea Time Seen by Provider: 07/09/17 09:40 Source: patient Mode of arrival: ambulatory Limitations: no limitations Nursing Notes Reviewed: Yes Vital Signs Reviewed: Yes - History of Present Illness HPI Narrative: 77-year-old who was diagnosed with 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 Pt Subjective Complaint: nausea, vomiting (Had retching but did not actually vomit.) Associated Abdominal Pain: No Associated symptoms: Reports: myalgias - Related Data Home Medications Medication Instructions Recorded Confirmed Aspirin [Lo-Dose Aspirin EC] 81 mg PO DAILY 06/05/17 06/23/17 Atorvastatin [Lipitor] 40 mg PO HS 06/05/17 06/23/17 Lisinopril/Hydrochlorothiazide 1 tab PO DAILY 06/05/17 06/23/17 [Zestoretic 20-25 mg Tablet] GlipiZIDE [Glipizide Xl] 5 mg PO DAILY 06/23/17 06/23/17 Previous Rx's Medication Instructions Recorded Dexamethasone [Decadron] 4 mg PO DAILY #7 tab 06/13/17 Ondansetron [Zofran ODT] 8 mg SL Q4HR PRN #60 tab.rapdis 06/13/17 Prochlorperazine Maleate 10 mg PO Q6HR PRN #60 tablet 06/13/17 [Compazine] Dexamethasone 2 mg PO DAILY #15 tab 06/23/17 OxyCODONE Immed Rel [Roxicodone 5 5 mg PO Q8HR PRN #90 tablet 06/28/17 MG] Allergies Allergy/AdvReac Type Severity Reaction Status Date / Time morphine Allergy Vomiting Verified 07/09/17 09:38 metformin AdvReac Gastrointestinal Verified 07/09/17 09:37 Upset Constitutional: Denies: fever, chills, weakness, weight change Eyes: Denies: eye pain, eye discharge, vision change ENT ED: Denies: ear pain, throat pain, dental pain, hearing loss, epistaxis, congestion, dysphagia Cardiovascular: Denies: chest pain, palpitations, dyspnea on exertion, edema, syncope Respiratory: Denies: cough, dyspnea, wheezes, hemoptysis, stridor Gastrointestinal: Reports: nausea, vomiting (Dry heaves). Denies: abdominal pain, diarrhea, constipation, hematemesis, melena, hematochezia Genitourinary: Denies: urgency, dysuria, frequency, hematuria Musculoskeletal: Denies: back pain, neck pain, arthralgia, myalgia Integumentary: Denies: rash, abrasion, lesions Neurological: Denies: headache, weakness, numbness, paresthesias, confusion, abnormal gait, vertigo Psychiatric: Denies: anxiety, depression, suicidal thoughts, homicidal thoughts , auditory hallucinations, visual hallucinations Endocrine: Denies: fatigue Hematological/Lymphatic: Denies: easy bleeding, easy bruising Allergic/Immunologic: Denies: facial swelling, urticaria Past Medical History - Past Medical History Medical history: Reports: cancer, diabetes, hypertension Surgical history: Reports: herniorrhaphy Psychiatric history: Reports: no psych history - Social History Smoking Status: Never smoker Smokeless Tobacco Status: No Alcohol use: Reports: none Drug use: Reports: none Physical Exam - General Limitations: no limitations General appearance: alert, in no apparent distress - Head Head exam: atraumatic, normocephalic, normal inspection - Eye Eye exam: Present: normal appearance, PERRL, EOMI - ENT ENT exam: normal exam, normal oropharynx, mucous membranes moist - Neck Neck exam: Present: normal inspection, full ROM, trachea midline - Chest Chest inspection: Present: normal inspection, symmetric chest wall rise - Respiratory Respiratory exam: Present: normal lung sounds bilaterally - Cardiovascular Cardiovascular exam: Present: regular rate, normal rhythm, normal heart sounds - Abdominal Exam Abdominal exam: Present: soft, Non-Tender. Absent: tenderness, distention, guarding, rebound, rigidity - Extremities Exam Extremities exam: Present: normal inspection, full ROM. Absent: tenderness, pedal edema - Expanded Lower Extremity Exam Neurovascular/Tendon exam: Absent: motor deficit, sensory deficit, tendon deficit Gait: observed and normal - Back Exam Back exam: Present: normal inspection, full ROM. Absent: tenderness - Neurological Exam Neurological exam: Present: alert, oriented X3 - Psychiatric Psychiatric exam: Present: normal affect, normal mood - Skin Skin exam: Present: warm, dry, intact, normal color Course - Reevaluation(s) Reevaluation #1: 77-year-old with metastatic adenocarcinoma who received chemotherapy on his had nausea vomiting since. Lab work was obtained that shows a creatinine of 3.20 with a normal creatinine previously. She was given IV fluids and will be admitted for further evaluation and treatment. Time: 11:18 - Consultations Consultation #1: Discussed with Dr. Richey, admit Time: 11:18 Vital Signs Temperature 97.5 F L 07/09/17 09:33 Pulse Rate 89 07/09/17 09:33 Respiratory Rate 14 07/09/17 09:33 Blood Pressure 103/65 07/09/17 09:33 O2 Sat by Pulse Oximetry 100 07/09/17 09:33 Temperature 97.5 F L 07/09/17 09:33 Pulse Rate 90 07/09/17 10:14 Respiratory Rate 20 07/09/17 10:14 Blood Pressure 113/69 07/09/17 10:14 O2 Sat by Pulse Oximetry 96 07/09/17 10:14 Oxygen Delivery Oxygen Delivery Room Air Nausea/Vomiting/Diarrhea - Lab Data Result diagrams: 07/09/17 10:04 07/09/17 10:04 Lab Results 07/09/17 07/09/17 07/09/17 Range/Units 10:04 10:04 10:04 WBC 11.4 H (4.3-11.1) K/mcL RBC 5.24 (4.19-5.50) M/mcL Hgb 13.8 (12.9-16.9) g/dL Hct 41.1 (37.5-50.1) % MCV 78.4 L (83.0-100.0) fL MCH 26.3 L (28.0-33.3) pg MCHC 33.6 (31.6-35.5) g/dL RDW 15.0 H (11.5-14.5) % Plt Count 278 (140-400) K/mcL MPV 10.0 (9.4-12.4) fL Immature Gran % 0.5 (0-4) % Seg Neutrophils % 85.3 % Lymphocytes % 9.6 % Monocytes % 4.5 % Eosinophils % 0.0 % Basophils % 0.1 % Neutrophils # 9.8 H (1.6-8.9) K/mcL Lymphocytes # 1.1 (0.6-4.6) K/mcL Monocytes # 0.5 (0.0-1.3) K/mcL Eosinophils # 0.0 (0.0-0.6) K/mcL Basophils # 0.0 (0.0-0.2) K/mcL Sodium 132 L (136-145) mEq/L Potassium 3.8 (3.5-4.5) mEq/L Chloride 101 (98-109) mEq/L Carbon Dioxide 13 L (19-29) mEq/L BUN 93 H (8-26) mg/dL Creatinine 3.20 H (0.72-1.25) mg/dL Est GFR ( Amer) 23 L (> 60) Est GFR (Non-Af Amer) 19 L (> 60) BUN/Creatinine Ratio 29 H (6-26) Glucose 229 H (70-99) mg/dL Calculated Osmolality 310 H (280-300) Calcium 7.2 L (8.6-10.8) mg/dL Total Bilirubin 0.6 (0.2-1.2) mg/dL Direct Bilirubin 0.4 (0.0-0.5) mg/dL Indirect Bilirubin 0.2 (0.0-1.2) mg/dL AST 66 H (5-34) Units/L ALT 94 H (0-55) Units/L Alkaline Phosphatase 402 H (38-126) Units/L Troponin I 0.03 (0-0.03) ng/mL Serum Total Protein 5.5 L (6.0-8.3) g/dL Albumin 2.2 L (3.5-5.0) g/dL Globulin 3.3 (2.4-3.5) g/dL Albumin/Globulin Ratio 0.7 L (1.1-2.2) Amylase 50 (25-125) Units/L Lipase 30 (8-78) Units/L Urine Color (Yellow) Urine Clarity (Clear) Urine pH (5.0-8.0) pH Units Ur Specific [place] (1.010-1.025) Urine Protein (Neg-Trace) mg/dL Urine Glucose (UA) (Normal) mg/dL Urine Ketones (Negative) mg/dL Urine Blood (Negative) Urine Nitrite (Negative) Urine Bilirubin (Negative) Urine Urobilinogen (Normal) mg/dL Ur Leukocyte Esterase (Negative) Urine Microscopic RBC (0-3) per hpf Urine Microscopic WBC (0-3) per hpf Ur Squamous Epith Cells (None-Few) per lpf Urine Bacteria (None-Few) per hpf Urine Mucus (Few) Ur Culture Indicated? (NO) 07/09/17 Range/Units 10:33 WBC (4.3-11.1) K/mcL RBC (4.19-5.50) M/mcL Hgb (12.9-16.9) g/dL Hct (37.5-50.1) % MCV (83.0-100.0) fL MCH (28.0-33.3) pg MCHC (31.6-35.5) g/dL RDW (11.5-14.5) % Plt Count (140-400) K/mcL MPV (9.4-12.4) fL Immature Gran % (0-4) % Seg Neutrophils % % Lymphocytes % % Monocytes % % Eosinophils % % Basophils % % Neutrophils # (1.6-8.9) K/mcL Lymphocytes # (0.6-4.6) K/mcL Monocytes # (0.0-1.3) K/mcL Eosinophils # (0.0-0.6) K/mcL Basophils # (0.0-0.2) K/mcL Sodium (136-145) mEq/L Potassium (3.5-4.5) mEq/L Chloride (98-109) mEq/L Carbon Dioxide (19-29) mEq/L BUN (8-26) mg/dL Creatinine (0.72-1.25) mg/dL Est GFR ( Amer) (> 60) Est GFR (Non-Af Amer) (> 60) BUN/Creatinine Ratio (6-26) Glucose (70-99) mg/dL Calculated Osmolality (280-300) Calcium (8.6-10.8) mg/dL Total Bilirubin (0.2-1.2) mg/dL Direct Bilirubin (0.0-0.5) mg/dL Indirect Bilirubin (0.0-1.2) mg/dL AST (5-34) Units/L ALT (0-55) Units/L Alkaline Phosphatase (38-126) Units/L Troponin I (0-0.03) ng/mL Serum Total Protein (6.0-8.3) g/dL Albumin (3.5-5.0) g/dL Globulin (2.4-3.5) g/dL Albumin/Globulin Ratio (1.1-2.2) Amylase (25-125) Units/L Lipase (8-78) Units/L Urine Color Yellow (Yellow) Urine Clarity Cloudy A (Clear) Urine pH 6.0 (5.0-8.0) pH Units Ur Specific [place] 1.022 (1.010-1.025) Urine Protein Trace (Neg-Trace) mg/dL Urine Glucose (UA) Normal (Normal) mg/dL Urine Ketones Negative (Negative) mg/dL Urine Blood Negative (Negative) Urine Nitrite Negative (Negative) Urine Bilirubin Small H (Negative) Urine Urobilinogen Normal (Normal) mg/dL Ur Leukocyte Esterase Negative (Negative) Urine Microscopic RBC 3-5 H (0-3) per hpf Urine Microscopic WBC 3-5 H (0-3) per hpf Ur Squamous Epith Cells Many H (None-Few) per lpf Urine Bacteria Few (None-Few) per hpf Urine Mucus Few (Few) Ur Culture Indicated? NO (NO) - EKG Data EKG attestation: Yes I reviewed and interpreted this EKG. EKG shows normal: sinus rhythm Rate: normal Rhythm: NSR Interpretation: no acute changes
[2017-07-09 10:14] LABS: Basophils % 0.1 %; Hematocrit 41.1 % (37.5-50.1); Hemoglobin 13.8 g/dL (12.9-16.9); Immature Granulocytes % 0.5 % (0-4); Lymphocytes # 1.1 K/mcL (0.6-4.6); Lymphocytes % 9.6 %; Mean Corpuscular HGB Conc 33.6 g/dL (31.6-35.5); Mean Corpuscular Hemoglobin 26.3 pg (28.0-33.3); Mean Corpuscular Volume 78.4 fL (83.0-100.0); Monocytes # 0.5 K/mcL (0.0-1.3); Monocytes % 4.5 %; Neutrophils # 9.8 K/mcL (1.6-8.9); Platelet Count 278 K/mcL (140-400); Red Blood Count 5.24 M/mcL (4.19-5.50); Segmented Neutrophils % 85.3 %
[2017-07-09 10:32] LABS: Albumin 2.2 g/dL (3.5-5.0); Albumin/Globulin Ratio 0.7 (1.1-2.2); Bilirubin,Direct 0.4 mg/dL (0.0-0.5); Bilirubin,Indirect 0.2 mg/dL (0.0-1.2); Bilirubin,Total 0.6 mg/dL (0.2-1.2); Calcium 7.2 mg/dL (8.6-10.8); Globulin 3.3 g/dL (2.4-3.5); Potassium 3.8 mEq/L (3.5-4.5); Total Protein 5.5 g/dL (6.0-8.3)
[2017-07-09 10:54] LABS: Bilirubin,Urine Small (Negative); Blood,Urine Negative (Negative); Clarity,Urine Cloudy (Clear); Color,Urine Yellow (Yellow); Glucose,Urine (UA) Normal (Normal); Ketones,Urine Negative (Negative); Leukocyte Esterase,Urine Negative (Negative); Nitrite,Urine Negative (Negative); Protein,Urine Trace mg/dL (Neg-Trace); Specific Gravity,Urine 1.022 (1.010-1.025); Urobilinogen,Urine Normal (Normal)
[2017-07-09 10:57] LABS: Squamous Epithelial Cell,Urine Many per lpf (None-Few)
[2017-07-09 11:10] LABS: Mucus,Urine Few (Few)
[2017-07-09 11:11] LABS: Bacteria,Urine Few per hpf (None-Few)
[2017-07-09] MEDS ORDERED: Pantoprazole 40 MG VIAL IVP ONE ×2 (11:25→11:59)
[2017-07-09] MEDS ORDERED: *HR* OxyCODONE Immed Rel 5 MG TABLET PO PRN (12:00)
[2017-07-09] MEDS ORDERED: Naloxone 0.4 MG/ML INJ IVP PRN (12:02)
[2017-07-09] MEDS ORDERED: Dextrose Gel 15 GM PO PRN ×2 (12:02)
[2017-07-09] MEDS ORDERED: Ondansetron 4 MG/2 ML VIAL IVP PRN (12:02)
[2017-07-09] MEDS ORDERED: *HR* Dextrose 50 % in Water (Syg) 50 ML SYRINGE IVP PRN (12:02)
[2017-07-09] MEDS ORDERED: D5% in Water 1,000 ML IVC PRN (12:02)
[2017-07-09] MEDS ORDERED: *HR* Promethazine 25 MG/ML VIAL IVP PRN (12:02)
--- NOTE | 2017-07-09 12:17 | Event Note ---
Date of Encounter: 07/09/17 Time of Encounter: 12:15 Patient seen and examined with nurse practitioner. Patients with metastatic cancer on chemotherapy presents with nausea, dry heaving. He was not eating anything the past 3 days. Workup reveals dehydration and acute renal failure. No obvious infectious etiology. Will give 2 L bolus, continue normal saline 125 mls an hour. Follow urine output. He is do not resuscitate.
--- NOTE | 2017-07-09 12:20 | Internal Med History&Physical ---
Date of Encounter: 07/09/17 Time of Encounter: 12:16 Assessment and Plan (1) Nausea vomiting and diarrhea Current visit: Yes Status: Acute Chemotherapy induced N/V. Received chemo on Tuesday of this week. N/V began on Tuesday. Patient also ingested epsoms salts and water for constipation on of last week and has had Diarrhea since last Tuesday. No obvious infection. antiemetics for symptomatic tx of N/V/D PCR C-diff Continue aggressive rehydration 0.9%1LFB, then 0.9% at 125ml/hr strict I&O Continuous tele, O2 CBC, CMP (2) Acute kidney injury Current visit: Yes Status: Acute Baseline Cr 0.8-1, todays Cr 3.20. D/t dehydration from multi day h/o N/V/D, and decreased oral intake. Continue to rehydrate Serum Cr in the morning (3) Dehydration Current visit: Yes Status: Acute SEE PLAN ABOVE (4) Liver metastasis Current visit: Yes Status: Acute Metastatic liver disease with unknown primary. Being followed by [facility]. (5) Lytic bone lesion of hip Current visit: No Status: Acute (6) Lesion of lumbar spine Current visit: No Status: Acute (7) DVT prophylaxis Current visit: Yes Status: Acute EPCD's Internal Medicine - H&P: HPI Chief complaint: n/v/d dehydration, OSMAN Admitted From: Home Plans for Post Hospital Care: Home History of present illness: Mr. Guzman is a 77 year old male with a PMH of metastatic adenocarcinoma, DM, and HTN. Presents today with N/V/D, dehydration and OSMAN. He states that for the since last tuesday he has had diarrhea and he has been nauseas and dry heaving since Tuesday of this week. He received Chemotherapy on Tuesday and has been nauseas since. He reports that he was constipated last week and on tuesday he mixed espoms salts with water and ingested it. After ingestion the diarrhea began. He denies any fevers, chills, CP, SOB,. He admits to weight-loss, loss of appetite, fatigue, N/V/D and abdominal pain. Metabolic panel reveals a new OSMAN, baseline Cr typically 0.80-1, today is 3.20. He is being admitted to rehydrate and further monitor electrolytes. Past Med Surg Social Fam HX - Past Medical History Medical history: cancer, diabetes, hypertension Psychiatric history: no psych history - Past Surgical History Surgical History: herniorrhaphy - Social History Smoking Status: Never smoker Smokeless Tobacco Status: No Alcohol use: none Drug use: none - Family History Mother Hx Family GI Disorders: No Father Hx Family Cardiac Disorders: Yes (CAD) Hx Family Cancer: Yes (Prostate) Internal Medicine - H&P: Meds Aspirin [Lo-Dose Aspirin EC] 81 mg PO DAILY 06/05/17 [History] Atorvastatin [Lipitor] 40 mg PO HS 06/05/17 [History] Lisinopril/Hydrochlorothiazide [Zestoretic 20-25 mg Tablet] 1 tab PO DAILY 06/05 [History] Ondansetron [Zofran ODT] 8 mg SL Q4HR PRN #60 tab.rapdis 06/13/17 [Rx] Prochlorperazine Maleate [Compazine] 10 mg PO Q6HR PRN #60 tablet 06/13/17 [Rx] Dexamethasone 2 mg PO DAILY #15 tab 06/23/17 [Rx] GlipiZIDE [Glipizide Xl] 5 mg PO DAILY 06/23/17 [History] OxyCODONE Immed Rel [Roxicodone 5 MG] 5 mg PO Q8HR PRN #90 tablet 06/28/17 [Rx] 3 Allergy/AdvReac Type Severity Reaction Status Date / Time morphine Allergy Vomiting Verified 07/09/17 09:38 metformin AdvReac Gastrointestinal Verified 07/09/17 09:37 Upset All Systems PM: A 10-system review of systems was performed and is negative for pertinent findings except as documented above in the HPI. - Constitutional Constitutional: fatigue, malaise, weakness, weight loss, no chills, no fever(s) , no night sweats, no weight gain - EENT Eyes: no change in vision, no discharge, no pain, no photophobia Ears: no ear discharge, no ear pain, no tinnitus Nose, mouth and throat: no dysphagia, no nasal discharge, no neck pain, no sore throat - Cardiovascular Cardiovascular ROS IM: no chest pain, no diaphoresis, no dyspnea, no lightheadedness, no palpitations, no syncope - Respiratory Respiratory: no cough, no dyspnea, no wheezing, no excessive phlegm production - Gastrointestinal Gastrointestinal: as per HPI, diarrhea, nausea, vomiting, no abdominal pain, no hematemesis, no hematochezia, no melena Additional comments: Dark stools after ingesting bismuth - Genitourinary Genitourinary ROS male: no dysuria, no urinary incontinence, no urinary urgency - Musculoskeletal Musculoskeletal ROS IM: no numbness, no tingling - Integumentary Integumentary IM: no rash, no unusual bruising - Neurological Neurological ROS: no confusion, no convulsions, no focal weakness, no numbness, no tingling, no tremor(s) - Hematologic/Lymphatic Hematologic/Lymphatic: no easy bruising - Constitutional Vitals: Temp Pulse Resp BP Pulse Ox 97.5 F L 90 20 131/68 96 07/09/17 09:33 07/09/17 10:14 07/09/17 11:34 07/09/17 11:34 07/09/17 10:14 General appearance: Present: mild distress, A&O X 3, loss of weight, answers questions appropriately - Head Head exam: Present: atraumatic, normocephalic - Eye Eye exam: Present: PERRL, conjuntiva pink, sclera anicteric Pupils: Present: PERRL - Neck Neck exam general surgery: Present: supple, trachea midline. Absent: lymphadenopathy - Respiratory Respiratory exam: Present: CTAB. Absent: accessory muscle use, rales, rhonchi, wheezes - Cardiovascular Cardiovascular exam: Present: RRR, +S1, +S2. Absent: diastolic murmur, gallop, rubs, systolic murmur - GI/Abdominal GI/Abdominal exam: Present: normal bowel sounds, soft, tenderness (RUQ & LUQ), no peritoneal signs. Absent: distended, firm, guarding, rigid Additional comments: NON ACUTE ABDOMEN - Extremities Exam Extremities exam: Present: warm, radial pulses palpable and symmetrical. Absent : calf tenderness, cyanotic, pedal edema - Neurological Exam Neurological exam: Present: CN II-XII intact, oriented X3, no focal deficits. Absent: pronater drift, facial droop, speech deficit - Skin Skin exam: Present: dry, intact Internal Med - H&P Results - Labs CBC & Chem 7: 07/09/17 10:04 07/09/17 10:04 - EKG Data -: EKG Interpreted by Myself EKG shows normal: sinus rhythm Rate: normal - EKG Data Prior EKG available for review: yes When compared to previous EKG: there is no significant change Interpretation IM: normal EKG
[2017-07-09] MEDS: 0.9 % Sodium Chloride 1,000 ML IVC SCH ×2 (13:55→22:02)
[2017-07-09] MEDS: Insulin LISPRO 300 UNITS/3 ML VIAL SQ SCH ×2 (16:33→21:56)
[2017-07-09] MEDS: Pantoprazole 40 MG VIAL IVP SCH (18:03)
[2017-07-10] MEDS: Pantoprazole 40 MG VIAL IVP SCH ×2 (05:22→17:01)
[2017-07-10] MEDS: 0.9 % Sodium Chloride 1,000 ML IVC SCH ×3 (05:28→17:05)
[2017-07-10] MEDS: Aspirin Enteric Coated 81 MG Tablet PO SCH (07:18)
[2017-07-10 07:26] LABS: Albumin/Globulin Ratio 0.5 (1.1-2.2); Bilirubin,Total 0.6 mg/dL (0.2-1.2); Calcium 7.9 mg/dL (8.6-10.8); Globulin 3.8 g/dL (2.4-3.5); Potassium 4.1 mEq/L (3.5-4.5); Total Protein 5.7 g/dL (6.0-8.3)
[2017-07-10 07:27] LABS: Albumin 1.9 g/dL (3.5-5.0)
[2017-07-10] MEDS: Insulin LISPRO 300 UNITS/3 ML VIAL SQ SCH ×4 (08:21→21:57)
[2017-07-10 08:45] LABS: Hematocrit 34.3 % (37.5-50.1)
[2017-07-10 09:01] LABS: Hemoglobin 11.3 g/dL (12.9-16.9); Immature Platelets 2.5 % (1.1-6.1); Mean Corpuscular HGB Conc 32.9 g/dL (31.6-35.5); Mean Corpuscular Hemoglobin 26.5 pg (28.0-33.3); Mean Corpuscular Volume 80.5 fL (83.0-100.0); Nucleated Red Blood Cells 0.3 /100 WBC (0); Platelet Count 194 K/mcL (140-400); Red Blood Count 4.26 M/mcL (4.19-5.50); Red Cell Distribution Width 15.2 % (11.5-14.5)
--- NOTE | 2017-07-10 09:06 | Internal Med Progress Note ---
Date of Encounter: 07/10/17 Time of Encounter: 09:00 - Assessment and plan (1) GI bleed Current Visit: Yes Status: Acute Assessment and plan: Reported diarrhea with melena, 1 episode of bright red bleeding per rectum this morning, associated with heart burn. Fecal occult blood positive. Continue to monitor hemoglobin, 11.3 today, which is at his baseline. Avoid medical anticoagulants. PPI. GI evaluation. Patient is also noted to have elevated AST and ALT, slightly improved today. Could be related to recent chemotherapy and persistent nausea and vomiting. Continue to monitor closely. Qualifiers: GI bleed type/associated pathology: melena Qualified Code(s): K92.1 - Melena (2) Acute kidney injury Current Visit: Yes Status: Acute Assessment and plan: Likely prerenal, secondary to GI losses and dehydration. Continue IV hydration. Serum creatinine noted to be improving. (3) Nausea & vomiting Current Visit: Yes Status: Acute Assessment and plan: Likely related to chemotherapy. Currently improving. Continue diet as tolerated, supportive care with when necessary antiemetics. IV hydration. Qualifiers: Vomiting type: unspecified Vomiting Intractability: non-intractable Qualified Code(s): R11.2 - Nausea with vomiting, unspecified (4) Adenocarcinoma Current Visit: Yes Status: Chronic Assessment and plan: Unknown primary with liver metastases. Continue outpatient care with oncology. (5) Liver metastasis Current Visit: Yes Status: Chronic (6) Hypertension Current Visit: Yes Status: Chronic Assessment and plan: Blood pressure noted to be well controlled. Continue home medications. Qualifiers: Hypertension type: essential hypertension Qualified Code(s): I10 - Essential (primary) hypertension (7) Type 2 diabetes mellitus Current Visit: Yes Status: Chronic Assessment and plan: Blood sugars noted to be elevated at admission, currently improving. Continue Accu-Chek blood glucose monitoring with sliding scale insulin. Diabetic diet. Qualifiers: Diabetes mellitus complication status: with unspecified complications Diabetes mellitus long term care phlebotomist insulin use: without usp use Qualified Code( s): E11.8 - Type 2 diabetes mellitus with unspecified complications (8) Acute superficial venous thrombosis of left lower extremity Current Visit: Yes Status: Acute Assessment and plan: Venous Doppler shows occlusive thrombus in left saphenous vein with associated varicose veins. Lower extremity elevation, compressive stocking and supportive care. - Subjective Interval history: Reports bright red bleeding per rectum this morning, which alter resolved. Has been having black stools like "shoe yi" prior to that. Also reports epigastric burning after eating; improved nausea and vomiting. Continues to have diarrhea. - Constitutional Vitals: Temp Pulse Resp BP Pulse Ox 97.6 F 86 18 121/65 98 07/10/17 07:44 07/10/17 07:44 07/10/17 07:44 07/10/17 07:44 07/10/17 07:55 General appearance: Present: A&O X 3, loss of weight, answers questions appropriately - Respiratory Respiratory exam: Present: CTAB. Absent: accessory muscle use, rales, rhonchi, wheezes - Cardiovascular Cardiovascular exam: Present: RRR, +S1, +S2. Absent: diastolic murmur, gallop, rubs, systolic murmur - GI/Abdominal GI/Abdominal exam: Present: normal bowel sounds, soft, no peritoneal signs. Absent: distended, tenderness - Extremities Exam Extremities exam: Present: full ROM, pedal edema, warm, radial pulses palpable and symmetrical. Absent: calf tenderness, cyanotic Additional comments: B/L lower legs with dry flaky skin and dry shallow ulcers and trace pedal edema - Neurological Exam Neurological exam: Present: CN II-XII intact, oriented X3, no focal deficits. Absent: pronater drift, facial droop, speech deficit Internal Medicine: Result - Labs CBC & Chem 7: 07/10/17 06:11 07/10/17 06:11 Labs: BMP 07/10/17 06:11 Sodium 134 L Potassium 4.1 Chloride 108 Carbon Dioxide 19 BUN 80 H Creatinine 1.89 H Glucose 90 Calcium 7.9 L Liver Function 07/10/17 Range/Units 06:11 Total Bilirubin 0.6 (0.2-1.2) mg/dL AST 62 H (5-34) Units/L ALT 81 H (0-55) Units/L Alkaline Phosphatase 374 H (38-126) Units/L Albumin 1.9 L (3.5-5.0) g/dL Consult Discharge Plan - Plan Referrals: Marcia Perez DO [Primary Care Provider] -
[2017-07-10 10:46] LABS: Hypersegmented Neutrophils Present (Not Present); Lymphocytes # 0.4 K/mcL (0.6-4.6); Monocytes # 0.4 K/mcL (0.0-1.3); Neutrophils # 9.6 K/mcL (1.6-8.9); Platelet Estimate Normal (Normal); Toxic Granulation Present (Not Present)
[2017-07-11 04:03] LABS: Basophils % 0.1 %; Hematocrit 33.2 % (37.5-50.1); Hemoglobin 10.9 g/dL (12.9-16.9); Immature Granulocytes % 0.5 % (0-4); Lymphocytes # 0.8 K/mcL (0.6-4.6); Lymphocytes % 6.9 %; Mean Corpuscular HGB Conc 32.8 g/dL (31.6-35.5); Mean Corpuscular Hemoglobin 26.5 pg (28.0-33.3); Mean Corpuscular Volume 80.8 fL (83.0-100.0); Mean Platelet Volume 10.1 fL (9.4-12.4); Monocytes # 0.7 K/mcL (0.0-1.3); Monocytes % 6.5 %; Neutrophils # 9.7 K/mcL (1.6-8.9); Platelet Count 139 K/mcL (140-400); Red Blood Count 4.11 M/mcL (4.19-5.50); Red Cell Distribution Width 15.1 % (11.5-14.5)
[2017-07-11 04:20] LABS: Alanine Aminotransferase 97 Units/L (0-55); Albumin/Globulin Ratio 0.5 (1.1-2.2); Alkaline Phosphatase 378 Units/L (38-126); Aspartate Amino Transferase 82 Units/L (5-34); BUN/Creatinine Ratio 46 (6-26); Bilirubin,Total 0.6 mg/dL (0.2-1.2); Blood Urea Nitrogen 61 mg/dL (8-26); Calcium 7.8 mg/dL (8.6-10.8); Carbon Dioxide 19 mEq/L (19-29); Chloride 109 mEq/L (98-109); Globulin 3.7 g/dL (2.4-3.5); Glucose 179 mg/dL (70-99); Magnesium 1.6 mg/dL (1.6-2.6); Osmolality,Calculated 308 (280-300); Potassium 3.7 mEq/L (3.5-4.5); Sodium 138 mEq/L (136-145); Total Protein 5.6 g/dL (6.0-8.3); eGFR For African Americans > 60 (> 60); eGFR For Non-African Americans 52 (> 60)
[2017-07-11 04:25] LABS: Albumin 1.9 g/dL (3.5-5.0)
[2017-07-11] MEDS: Aspirin Enteric Coated 81 MG Tablet PO SCH (05:07)
[2017-07-11] MEDS: Pantoprazole 40 MG VIAL IVP SCH ×2 (05:09→17:01)
[2017-07-11] MEDS: 0.9 % Sodium Chloride 1,000 ML IVC SCH (05:19)
[2017-07-11] MEDS: Insulin LISPRO 300 UNITS/3 ML VIAL SQ SCH ×4 (07:48→21:34)
--- NOTE | 2017-07-11 09:12 | Internal Med Progress Note ---
Date of Encounter: 07/11/17 Time of Encounter: 09:10 - Assessment and plan (1) GI bleed Current Visit: Yes Status: Acute Assessment and plan: Had multiple episodes of melena and one episode of bright red bleeding per rectum yesterday. Hemoglobin remained stable. Continues to report postprandial epigastric burning pain. Case discussed with GI, underwent EGD today, which shows nonbleeding esophagitis in the lower third of esophagus along with multiple duodenal ulcers, largest greater than 1 cm, with pigmented material. This is likely related to chemotherapy and steroids. Plan for colonoscopy tomorrow. Continue twice daily IV Protonix, started Carafate. Qualifiers: GI bleed type/associated pathology: melena Qualified Code(s): K92.1 - Melena (2) Acute kidney injury Current Visit: Yes Status: Acute Assessment and plan: Likely prerenal due to GI losses from nausea and vomiting. Serum creatinine continues to improve, continue IV hydration. (3) Nausea & vomiting Current Visit: Yes Status: Resolved Qualifiers: Vomiting type: unspecified Vomiting Intractability: non-intractable Qualified Code(s): R11.2 - Nausea with vomiting, unspecified (4) Adenocarcinoma Current Visit: Yes Status: Chronic Assessment and plan: Unknown primary with liver metastases. Continue outpatient care with oncology. (5) Liver metastasis Current Visit: Yes Status: Chronic (6) Hypertension Current Visit: Yes Status: Chronic Assessment and plan: Blood pressure noted to be well controlled. Continue home medications. Qualifiers: Hypertension type: essential hypertension Qualified Code(s): I10 - Essential (primary) hypertension (7) Type 2 diabetes mellitus Current Visit: Yes Status: Chronic Assessment and plan: Blood sugars noted to be elevated at admission, currently improving. Continue Accu-Chek blood glucose monitoring with sliding scale insulin. Diabetic diet. Qualifiers: Diabetes mellitus complication status: with unspecified complications Diabetes mellitus middle or intermediate school principal insulin use: without middle or intermediate school principal use Qualified Code( s): E11.8 - Type 2 diabetes mellitus with unspecified complications (8) Acute superficial venous thrombosis of left lower extremity Current Visit: Yes Status: Acute Assessment and plan: Venous Doppler shows occlusive thrombus in left saphenous vein with associated varicose veins. Lower extremity elevation, compressive stocking and supportive care. - Subjective Interval history: Feels better but continues to have epigastric burning pain with food; no dyspnea , nausea, vomiting; - Constitutional Vitals: Temp Pulse Resp BP Pulse Ox 96.6 F L 68 17 165/77 99 07/11/17 07:42 07/11/17 04:30 07/11/17 07:42 07/11/17 07:42 07/11/17 07:42 General appearance: Present: A&O X 3, loss of weight, answers questions appropriately - Respiratory Respiratory exam: Present: CTAB. Absent: accessory muscle use, rales, rhonchi, wheezes - Cardiovascular Cardiovascular exam: Present: RRR, +S1, +S2. Absent: diastolic murmur, gallop, rubs, systolic murmur - GI/Abdominal GI/Abdominal exam: Present: normal bowel sounds, soft, no peritoneal signs. Absent: distended, tenderness - Extremities Exam Extremities exam: Present: full ROM, pedal edema, warm, radial pulses palpable and symmetrical. Absent: calf tenderness, cyanotic - Neurological Exam Neurological exam: Present: CN II-XII intact, oriented X3, no focal deficits. Absent: pronater drift, facial droop, speech deficit Internal Medicine: Result - Labs CBC & Chem 7: 07/11/17 03:35 07/11/17 03:35 Labs: Short CBC 07/10/17 07/11/17 Range/Units 06:11 03:35 WBC 10.4 11.3 H (4.3-11.1) K/mcL Hgb 11.3 L D 10.9 L (12.9-16.9) g/dL Hct 34.3 L 33.2 L (37.5-50.1) % Plt Count 194 139 L (140-400) K/mcL Neutrophils # 9.6 H 9.7 H (1.6-8.9) K/mcL BMP 07/11/17 03:35 Sodium 138 Potassium 3.7 Chloride 109 Carbon Dioxide 19 BUN 61 H Creatinine 1.33 H Glucose 179 H Calcium 7.8 L Liver Function 07/11/17 Range/Units 03:35 Total Bilirubin 0.6 (0.2-1.2) mg/dL AST 82 H (5-34) Units/L ALT 97 H (0-55) Units/L Alkaline Phosphatase 378 H (38-126) Units/L Albumin 1.9 L (3.5-5.0) g/dL Consult Discharge Plan - Plan Referrals: Marcia Perez DO [Primary Care Provider] - (web requests ent on 07/11/17 )
--- NOTE | 2017-07-11 11:12 | Gastroenterology Consult Note ---
<Rose Mary Perez - Last Filed: 07/11/17 11:04> Date of Encounter: 07/11/17 Time of Encounter: 10:15 - Assessment and plan (1) Nausea & vomiting Current Visit: Yes Status: Acute Assessment and plan: Some improvement may be related to chemo. Will proceed with EGD today. Qualifiers: Vomiting type: unspecified Vomiting Intractability: non-intractable Qualified Code(s): R11.2 - Nausea with vomiting, unspecified (2) GI bleed Current Visit: Yes Status: Acute Assessment and plan: Pt complaining of melena and bright red bleeding for rectum. May need colonoscopy tomorrow. Qualifiers: GI bleed type/associated pathology: melena Qualified Code(s): K92.1 - Melena (3) Liver metastasis Current Visit: Yes Status: Chronic Assessment and plan: Primary unknown, followed by oncology. Possible colonoscopy tomorrow. - Time Spent With Patient Total time spent is greater than 50% in coordination of care (as documented) at patient's floor/unit and/or counseling patient: GI History of Present Illness - Data of Consult Patient: new to practice Consult date: 07/11/17 Requesting Physician: Marcelle Mayer MD - Consult Narrative Reason for consult: nausea History of present illness: Mr. Guzman is a 77 year old male with a PMH of metastatic adenocarcinoma primary unknown diagnosed 06/24, DM, and HTN. Presented with N/V/D, dehydration. He had constipation last week and mixed epsom salt with water and ingested, diarrhea started after that. He had his first chemotherapy treatment on Tuesday of last week and has had, nausea, vomiting and dry heaving since that time. He denies any fevers, chills, CP, SOB,. He admits to weight-loss, loss of appetite , fatigue, N/V/D and abdominal pain. He complains of pain and soreness in his upper abdomen. He reports dark tarry stool that turned bright red x 1 episode and now remains black "like chewed tobacco". CMP reveals new OSMAN, Cr 3.20, has improved to 1.33 today. T bili 0.6, AST 82, ALT 97, Alk phos 378. Amylase 50 Lipase 30. Hgb is 10.9, platelets 139. Stool occult blood was positive. NSAIDS/ASA: 81 mg Anticoagulants: none EGD: 1998 at [facility] Colonoscopy: 1998 [facility], states had polyps but were negative. Past Med Surg Social Fam HX - Past Medical History Medical history: cancer, diabetes, hypertension Psychiatric history: no psych history - Past Surgical History Surgical History: herniorrhaphy - Social History Smoking Status: Never smoker Smokeless Tobacco Status: No Alcohol use: none Drug use: none - Family History Mother Hx Family GI Disorders: No Father Hx Family Cardiac Disorders: Yes (CAD) Hx Family Cancer: Yes (Prostate) Review of Systems: GI: as per [facility] GENERAL: denies fever, or chills EYES: denies yellow discoloration ENT: pain and buring in esophagus and into upper abdomen with swallowing food or liquids CARDIO: denies chest pain, palpitations RESP: Shortness of breath with exertion : denies change in color of urine NEURO: weakness HEME: Denies any bruising MS: chronic back and joint pain. DERM: denies rash or itching PSYCH: Denies history of anxiety or depression - Constitutional Vitals: Temp Pulse Resp BP Pulse Ox 96.6 F L 68 17 165/77 99 07/11/17 07:42 07/11/17 04:30 07/11/17 07:42 07/11/17 07:42 07/11/17 07:42 Exam: CONSTITUTIONAL:~alert, no acute distress.~HEAD:~normocephalic.~EYES:~no jaundice.~NECK:~no obvious swelling.~HEART:~regular rate and rhythm, no murmurs. ~LUNGS:~bilateral fair air entry.~ABDOMEN:~non distended, soft, tender epigastric area, no masses palpable, no organomegaly.~RECTAL EXAM:~Deferred.~ EXTREMITIES:~no clubbing, cyanosis or edema, scar to right lower leg.~SKIN:~no stigmata of chronic liver disease.~NEUROLOGIC:~no obvious focal defect.~~~~ Results - Labs CBC & Chem 7: 07/11/17 03:35 07/11/17 03:35 Labs: Last Result Calcium 7.8 mg/dL (8.6-10.8) L 07/11/17 03:35 Troponin I 0.03 ng/mL (0-0.03) 07/09/17 10:04 Stool Occult Blood Positive (Negative) A 07/09/17 12:51 Entire Visit Hgb 10.9 g/dL (12.9-16.9) L 07/11/17 03:35 Hct 33.2 % (37.5-50.1) L 07/11/17 03:35 Total Bilirubin 0.6 mg/dL (0.2-1.2) 07/11/17 03:35 AST 82 Units/L (5-34) H 07/11/17 03:35 ALT 97 Units/L (0-55) H 07/11/17 03:35 Amylase 50 Units/L (25-125) 07/09/17 10:04 Lipase 30 Units/L (8-78) 07/09/17 10:04 Consult Discharge Plan - Plan Referrals: Marcia Perez DO [Primary Care Provider] - (web requests ent on 07/11/17 ) <Nelsy Beasley - Last Filed: 07/11/17 17:02> Date of Encounter: 07/11/17 Time of Encounter: 13:00 - Time Spent With Patient Total time spent is greater than 50% in coordination of care (as documented) at patient's floor/unit and/or counseling patient: GI History of Present Illness - Data of Consult Requesting Physician: Marcelle Mayer MD - Consult Narrative History of present illness: Mr. Guzman is a 77 year old male - Constitutional Vitals: Temp Pulse Resp BP Pulse Ox 97.7 F 85 18 164/71 98 07/11/17 13:59 07/11/17 16:54 07/11/17 16:54 07/11/17 16:54 07/11/17 16:54 Results - Labs CBC & Chem 7: 07/11/17 03:35 07/11/17 03:35 Labs: Last Result Calcium 7.8 mg/dL (8.6-10.8) L 07/11/17 03:35 Troponin I 0.03 ng/mL (0-0.03) 07/09/17 10:04 Stool Occult Blood Positive (Negative) A 07/09/17 12:51 Entire Visit Hgb 10.9 g/dL (12.9-16.9) L 07/11/17 03:35 Hct 33.2 % (37.5-50.1) L 07/11/17 03:35 Total Bilirubin 0.6 mg/dL (0.2-1.2) 07/11/17 03:35 AST 82 Units/L (5-34) H 07/11/17 03:35 ALT 97 Units/L (0-55) H 07/11/17 03:35 Amylase 50 Units/L (25-125) 07/09/17 10:04 Lipase 30 Units/L (8-78) 07/09/17 10:04 - Attending Attestation I examined this patient and my medical decision-making was reviewed with the Resident Physician. I agree with the documented findings, disposition and treatment plan as described except to the extent set forth below. Pt with metastatic adeno CA , CT reviewed with radiology, no evidence of colon or pancreatic mass. Melena; EGD tody
[2017-07-11] MEDS ORDERED: 0.9 % Sodium Chloride 500 ML IVC SCH (14:00)
[2017-07-11] MEDS ORDERED: *HR* Propofol 200 MG/20 ML VIAL IVP ONE (14:03)
[2017-07-11] MEDS ORDERED: Lidocaine -MPF 2% 2 ML VIAL ONE (14:03)
--- NOTE | 2017-07-11 14:11 | Anesthesia Evaluation PreOp ---
Date of Encounter: 07/11/17 Time of Encounter: 14:00 - Past History Planned Operation: EGD Cardiac History: HTN Pulmonary History: Denies Any Significant HX Other Medical History: Renal (Acute renal injury secondary to dehydration), Diabetes Type II, Other (Cancer, unknown primary with liver mets. Admitted to hospital with nausea, vomiting, abd. bloating and dehydration.) Anesthesia History: No Prior Anesthetic Complications Alcohol Use: none Drug use: none Medications and Allergies Aspirin [Lo-Dose Aspirin EC] 81 mg PO DAILY 06/05/17 [History] Atorvastatin [Lipitor] 40 mg PO HS 06/05/17 [History] Lisinopril/Hydrochlorothiazide [Zestoretic 20-25 mg Tablet] 1 tab PO DAILY 06/05 [History] Ondansetron [Zofran ODT] 8 mg SL Q4HR PRN #60 tab.rapdis 06/13/17 [Rx] Prochlorperazine Maleate [Compazine] 10 mg PO Q6HR PRN #60 tablet 06/13/17 [Rx] Dexamethasone 2 mg PO DAILY #15 tab 06/23/17 [Rx] GlipiZIDE [Glipizide Xl] 5 mg PO DAILY 06/23/17 [History] OxyCODONE Immed Rel [Roxicodone 5 MG] 5 mg PO Q8HR PRN #90 tablet 06/28/17 [Rx] 3 Allergy/AdvReac Type Severity Reaction Status Date / Time morphine Allergy Vomiting Verified 07/09/17 09:38 metformin AdvReac Gastrointestinal Verified 07/09/17 09:37 Upset - Meds/Allergy Pre-op Review Medications Reviewed: Yes Allergies Reviewed: Yes Beta Blockers on Current Med List: No Anesthesia Results - Labs 07/11/17 03:35 07/11/17 03:35 - Imaging EKG: report reviewed (sinus rhythm with old inf. infarct) Anesthesia Exam Selected Entries 07/11/17 13:59 Temperature 97.7 F Pulse Rate 59 Respiratory Rate 17 Blood Pressure 156/92 O2 Sat by Pulse Oximetry 100 Weight: 86 kg NPO (# of Hours): 8 hours - HEENT Pupil (Motor): Pupils equal Teeth: Edentulous Oral Opening: Greater than 3 - Cardiac Rhythm: Regular Murmur: None - Pulmonary Breath Sounds: bilateral Clear Respiratory Effort: Symmetrical Anesthesia Assess/Plan ASA Score: 3 Modified [place] Scale for Level of Consciousness: Cooperative, oriented, and tranquil Anesthetic Plan: MAC Monitoring Plan: Standard Monitors Recovery Plan: Other (Discussed MAC anesthesia, agrees to proceed.)
[2017-07-12] MEDS: Pantoprazole 40 MG VIAL IVP SCH ×2 (05:16→16:30)
[2017-07-12 07:32] LABS: BUN/Creatinine Ratio 46 (6-26); Carbon Dioxide 17 mEq/L (19-29); Chloride 109 mEq/L (98-109); Glucose 151 mg/dL (70-99); Magnesium 1.3 mg/dL (1.6-2.6); Osmolality,Calculated 301 (280-300); Potassium 3.8 mEq/L (3.5-4.5); Sodium 138 mEq/L (136-145); eGFR For African Americans > 60 (> 60); eGFR For Non-African Americans > 60 (> 60)
[2017-07-12 07:35] LABS: Blood Urea Nitrogen 46 mg/dL (8-26)
[2017-07-12] MEDS: Insulin LISPRO 300 UNITS/3 ML VIAL SQ SCH ×4 (07:49→20:58)
[2017-07-12] MEDS: Aspirin Enteric Coated 81 MG Tablet PO SCH (07:55)
[2017-07-12] MEDS ORDERED: Magnesium Sulfate 2 GM in D5% in Water 100 ML IVPB ONE (09:34)
[2017-07-12 09:37] LABS: Basophils % 0.1 %; Hematocrit 34.3 % (37.5-50.1); Hemoglobin 11.1 g/dL (12.9-16.9); Immature Granulocytes % 0.6 % (0-4); Lymphocytes # 1.2 K/mcL (0.6-4.6); Lymphocytes % 7.5 %; Mean Corpuscular HGB Conc 32.4 g/dL (31.6-35.5); Mean Corpuscular Hemoglobin 26.1 pg (28.0-33.3); Mean Corpuscular Volume 80.7 fL (83.0-100.0); Mean Platelet Volume 10.1 fL (9.4-12.4); Monocytes # 1.1 K/mcL (0.0-1.3); Monocytes % 6.8 %; Neutrophils # 13.2 K/mcL (1.6-8.9); Platelet Count 153 K/mcL (140-400); Red Blood Count 4.25 M/mcL (4.19-5.50); Red Cell Distribution Width 15.4 % (11.5-14.5)
--- NOTE | 2017-07-12 09:46 | Internal Med Progress Note ---
Date of Encounter: 07/12/17 Time of Encounter: 09:42 - Assessment and plan (1) GI bleed Current Visit: Yes Status: Acute Assessment and plan: No episodes of melena/BRBPR today. Hemoglobin remained stable. Status post EGD 07/11 which shows nonbleeding esophagitis in the lower third of esophagus along with multiple duodenal ulcers, largest greater than 1 cm, with pigmented material. This is likely related to chemotherapy and steroids. Possibly colonoscopy today. GI recommendations appreciated. Continue twice daily IV Protonix, started Carafate. Qualifiers: GI bleed type/associated pathology: melena Qualified Code(s): K92.1 - Melena (2) Hypertension Current Visit: Yes Status: Chronic Assessment and plan: BP now becoming elevated. Kidney function improved. Will restart Zestoretic. Hold if hypotensive or creatinine >1.3. Qualifiers: Hypertension type: essential hypertension Qualified Code(s): I10 - Essential (primary) hypertension (3) Type 2 diabetes mellitus Current Visit: Yes Status: Chronic Assessment and plan: Blood sugars noted to be elevated at admission, currently improving. Continue Accu-Chek blood glucose monitoring with sliding scale insulin. Diabetic diet. Qualifiers: Diabetes mellitus complication status: with unspecified complications Diabetes mellitus joint terminal attack controller insulin use: without joint terminal attack controller use Qualified Code( s): E11.8 - Type 2 diabetes mellitus with unspecified complications (4) DVT prophylaxis Current Visit: Yes Status: Acute Assessment and plan: Patient presented with GIB and medical anticoag contraindicated. Will continue SCDs. (5) Nausea & vomiting Current Visit: Yes Status: Resolved Assessment and plan: Likely related to chemotherapy. Currently improving. Continue diet as tolerated, supportive care with when necessary antiemetics. IV hydration. Qualifiers: Vomiting type: unspecified Vomiting Intractability: non-intractable Qualified Code(s): R11.2 - Nausea with vomiting, unspecified (6) Acute kidney injury Current Visit: Yes Status: Acute Assessment and plan: Likely prerenal due to GI losses from nausea and vomiting. Serum creatinine continues to improve, continue IV hydration. (7) Nausea vomiting and diarrhea Current Visit: Yes Status: Acute (8) Adenocarcinoma Current Visit: Yes Status: Chronic Assessment and plan: Unknown primary with liver metastases. Continue outpatient care with oncology. (9) Thrombocytopenia Current Visit: Yes Status: Acute (10) Leukocytosis Current Visit: Yes Status: Acute Assessment and plan: May be cancer related. However, may need to do general infectious workup as the patient is immunocompromised. Qualifiers: Leukocytosis type: unspecified Qualified Code(s): D72.829 - Elevated white blood cell count, unspecified - Constitutional Vitals: Temp Pulse Resp BP Pulse Ox 97.8 F 69 13 151/79 98 07/12/17 07:19 07/12/17 07:19 07/12/17 07:19 07/12/17 07:19 07/12/17 07:19 General appearance: Present: A&O X 3, loss of weight, answers questions appropriately Internal Medicine: Result - Labs CBC & Chem 7: 07/12/17 06:02 07/12/17 06:02 Labs: Short CBC 07/12/17 Range/Units 06:02 WBC 15.5 H (4.3-11.1) K/mcL Hgb 11.1 L (12.9-16.9) g/dL Hct 34.3 L (37.5-50.1) % Plt Count 153 (140-400) K/mcL Neutrophils # 13.2 H (1.6-8.9) K/mcL BMP 07/12/17 06:02 Sodium 138 Potassium 3.8 Chloride 109 Carbon Dioxide 17 L BUN 46 H D Creatinine 0.99 Glucose 151 H Calcium 8.0 L Consult Discharge Plan - Plan Referrals: Marcia Perez DO [Primary Care Provider] - (web requests ent on 07/11/17 )
[2017-07-12 10:52] LABS: INR 1.2; Prothrombin Time 12.9 Seconds (9.4-12.1)
[2017-07-12] MEDS: Lisinopril-HCTZ 20-12.5mg TABLET PO SCH (11:02)
--- NOTE | 2017-07-12 22:39 | Electrocardiograph Report ---
[place] [id number] Test Date: 2017-07-09 Pat Name: Amairani Guzman Department: 104 Room: 2A Gender: M Drafter Directional Survey: MAHENDRA : 1940 Requested By: Kenji Seo Order Number: [id number] Reading MD: Aleica Mullins Measurements Intervals [place] Rate: 91 P: 39 AK: 173 QRS: 22 QRSD: 97 T: 61 QT: 330 QTc: 379 Interpretive Statements SINUS RHYTHM LOW QRS VOLTAGE IN EXTREMITY LEADS [QRS DEFLECTION < 0.5 mV IN LIMB LEADS] SEPTAL MYOCARDIAL INFARCTION [40+ ms Q WAVE IN V1/V2], PROBABLY OLD Electronically Signed On 07-12-2017 22:37:28 EST by Alecia Mullins
[2017-07-13] MEDS: Pantoprazole 40 MG VIAL IVP SCH (05:38)
[2017-07-13 06:07] LABS: BUN/Creatinine Ratio 39 (6-26); Carbon Dioxide 15 mEq/L (19-29); Chloride 110 mEq/L (98-109); Glucose 107 mg/dL (70-99); Osmolality,Calculated 293 (280-300); Potassium 3.8 mEq/L (3.5-4.5); Sodium 138 mEq/L (136-145); eGFR For African Americans > 60 (> 60); eGFR For Non-African Americans > 60 (> 60)
[2017-07-13 06:08] LABS: Blood Urea Nitrogen 31 mg/dL (8-26)
[2017-07-13 07:12] LABS: Basophils % 0.2 %; Eosinophils % 0.1 %; Hematocrit 32.3 % (37.5-50.1); Hemoglobin 10.8 g/dL (12.9-16.9); Immature Granulocytes % 1.9 % (0-4); Lymphocytes # 2.2 K/mcL (0.6-4.6); Lymphocytes % 13.9 %; Mean Corpuscular HGB Conc 33.4 g/dL (31.6-35.5); Mean Corpuscular Hemoglobin 26.4 pg (28.0-33.3); Mean Platelet Volume 10.2 fL (9.4-12.4); Monocytes # 1.4 K/mcL (0.0-1.3); Monocytes % 8.7 %; Neutrophils # 11.8 K/mcL (1.6-8.9); Platelet Count 134 K/mcL (140-400); Red Blood Count 4.09 M/mcL (4.19-5.50); Segmented Neutrophils % 75.2 %
[2017-07-13 07:52] LABS: Magnesium 1.7 mg/dL (1.6-2.6)
[2017-07-13] MEDS: Insulin LISPRO 300 UNITS/3 ML VIAL SQ SCH ×2 (08:18→11:51)
[2017-07-13] MEDS: Lisinopril-HCTZ 20-12.5mg TABLET PO SCH (08:31)
[2017-07-13] MEDS: Aspirin Enteric Coated 81 MG Tablet PO SCH (08:32)
[2017-07-13 11:06] VITALS: BP 132/72
--- NOTE | 2017-07-13 14:02 | Discharge Summary ---
Date of Encounter: 07/13/17 Time of Encounter: 13:59 - Discharge Diagnosis (1) GI bleed Priority: Primary Status: Resolved Qualifiers: GI bleed type/associated pathology: melena Qualified Code(s): K92.1 - Melena (2) Hypertension Priority: Secondary Status: Chronic Qualifiers: Hypertension type: essential hypertension Qualified Code(s): I10 - Essential (primary) hypertension (3) Type 2 diabetes mellitus Priority: Secondary Status: Chronic Qualifiers: Diabetes mellitus complication status: with unspecified complications Diabetes mellitus emt intermediate insulin use: without fpc use Qualified Code( s): E11.8 - Type 2 diabetes mellitus with unspecified complications (4) DVT prophylaxis Priority: Secondary Status: Acute (5) Nausea & vomiting Priority: Secondary Status: Resolved Qualifiers: Vomiting type: unspecified Vomiting Intractability: non-intractable Qualified Code(s): R11.2 - Nausea with vomiting, unspecified (6) Acute kidney injury Priority: Secondary Status: Acute (7) Nausea vomiting and diarrhea Priority: Secondary Status: Acute (8) Adenocarcinoma Priority: Secondary Status: Chronic (9) Thrombocytopenia Priority: Secondary Status: Chronic (10) Leukocytosis Priority: Secondary Status: Chronic Comments: Likely secondary to metastatic disease. Will have patient have follow-up CBC in 2 days. Qualifiers: Leukocytosis type: unspecified Qualified Code(s): D72.829 - Elevated white blood cell count, unspecified - Discharge Medications Prescriptions: Omeprazole [PriLOSEC] 40 mg PO BIDAC #60 capsule. Sucralfate [Carafate] 1 gm PO QIDAC #1200 ml Home Medications: Aspirin [Lo-Dose Aspirin EC] 81 mg PO DAILY 06/05/17 [History] Atorvastatin [Lipitor] 40 mg PO HS 06/05/17 [History] Lisinopril/Hydrochlorothiazide [Zestoretic 20-25 mg Tablet] 1 tab PO DAILY 06/05 [History] Ondansetron [Zofran ODT] 8 mg SL Q4HR PRN #60 tab.rapdis 06/13/17 [Rx] Prochlorperazine Maleate [Compazine] 10 mg PO Q6HR PRN #60 tablet 06/13/17 [Rx] Dexamethasone 2 mg PO DAILY #15 tab 06/23/17 [Rx] GlipiZIDE [Glipizide Xl] 5 mg PO DAILY 06/23/17 [History] OxyCODONE Immed Rel [Roxicodone 5 MG] 5 mg PO Q8HR PRN #90 tablet 06/28/17 [Rx] Omeprazole [PriLOSEC] 40 mg PO BIDAC #60 capsule. 07/13/17 [Rx] Sucralfate [Carafate] 1 gm PO QIDAC #1200 ml 07/13/17 [Rx] Allergies/Adverse Reactions: 3 Allergy/AdvReac Type Severity Reaction Status Date / Time morphine Allergy Vomiting Verified 07/09/17 09:38 metformin AdvReac Gastrointestinal Verified 07/09/17 09:37 Upset Date of admission: 07/09/17 12:02 Primary care physician: Robson Santoro Consults: 07/10/17 09:16 Consult to Gastroenterology [CONS] Routine Consulting Provider: Gastroenterology Millicent Reason for Consult: Epigastric pain, melena, one episode of BRBPR Call Completed: No Discharging clinician: Amanda Jordan - Patient Status Disposition: Home, Self-Care Condition: Fair Functional capacity at discharge: independent ambulation Overall status at discharge: patient is progressing back to baseline - Discharge Instructions Follow Up With: Marcia Perez DO [Primary Care Provider] - (web requests ent on 07/11/17 ) - Diet and Activity Activity: increase activity as tolerated Diet: advance to your usual diet Hospital course: Mr. Guzman is a 77 year old male past medical history of metastatic adenocarcinoma, diabetes, and hypertension who presented with nausea vomiting and diarrhea. Also had dehydration and a chaotic. Patient was having this for several days after chemotherapy treatment. He denied any fevers, chills, chest pain, shortness of breath. He does admit to weight loss, loss of appetite, fatigue, abdominal pain. Patient's creatinine typically 0.81.0, and on day of admission was 3.20. He was admitted for rehydration, acute kidney injury, electrolyte abnormalities. He was started on normal saline and monitored on telemetry. He complained of an episode of bright red bleeding per rectum the following morning associated with heartburn . Fecal occult blood was positive. He was started on proton pump inhibitor therapy. GI was consulted. He did have multiple episodes of melena as well. Went EGD on 07/11, which showed nonbleeding esophagitis in the lower third of the esophagus along with multiple duodenal ulcers, largest greater than 1 cm, with pigmented material. This is likely related to chemotherapy and steroids. He was continued on twice daily PPI therapy, and Carafate was started. Was noticed that he has leukocytosis, this could be due to metastatic disease and dehydration. He had no signs of infection. He had Thrombocytopenia as well due to acute blood loss. He will have a follow-up CBC in 2 days. His initial hemoglobin was 13.8 but he was dehydrated. After adequate resuscitation his hemoglobin ranged from 10.8-11.3. His kidney function improved with IV hydration. Nausea and vomiting resolved. After patient was started on this treatment and he was advanced his diet and he tolerated without any issues he was discharged home in stable condition. - Time Spent with Patient Total time spent providing and/or coordinating discharge services: - Constitutional Vitals: Temp Pulse Resp BP Pulse Ox 98.3 F 69 17 132/72 96 07/13/17 10:59 07/13/17 10:59 07/13/17 10:59 07/13/17 10:59 07/13/17 10:59 General appearance: Present: A&O X 3, loss of weight, answers questions appropriately Exam: - Respiratory Respiratory exam: Present: CTAB. Absent: accessory muscle use, rales, rhonchi, wheezes - Cardiovascular Cardiovascular exam: Present: RRR, +S1, +S2. Absent: diastolic murmur, gallop, rubs, systolic murmur - GI/Abdominal GI/Abdominal exam: Present: normal bowel sounds, soft, no peritoneal signs. Absent: distended, tenderness - Extremities Exam Extremities exam: Present: full ROM, pedal edema, warm, radial pulses palpable and symmetrical. Absent: calf tenderness, cyanotic - Neurological Exam Neurological exam: Present: CN II-XII intact, oriented X3, no focal deficits. Absent: pronater drift, facial droop, speech deficit
[2017-07-15 08:26] LABS: Mycoplasma pneumoniae IgG 0.48 U/L (<=0.09)
[2017-07-15 14:20] LABS: HSV Source DUODENAL BX
== END 2017-07-13 15:30 | disposition home or self-care (01) | DRG 378 ==
LOC: 2ANU 09:32 → EMEROO 09:32 → SUATTDRO 12:02 → 2ANU 12:06
PROVIDERS: ADMIT Hospitalist; ATTEND Internal Medicine
PROC: ENDOEBX (2017-07-11 13:00)

== ENCOUNTER 2017-09-08 14:58 | Inpatient (IN) ==
[2017-09-08] MEDS ORDERED: 0.9 % Sodium Chloride 1,000 ML IVC ONE ×2 (15:12→15:24)
[2017-09-08] MEDS ORDERED: Ondansetron 4 MG/2 ML VIAL IVP ONE (15:12)
--- NOTE | 2017-09-08 15:12 | Emergency Department Note ---
Disposition Clinical Impression: Weakness, Pleural effusion Fall Qualifiers: Encounter type: initial encounter Qualified Code(s): W19.XXXA - Unspecified fall, initial encounter Humeral head fracture Qualifiers: Encounter type: initial encounter Fracture type: closed Laterality: right Qualified Code(s): S42.291A - Other displaced fracture of upper end of right humerus, initial encounter for closed fracture Disposition: Admitted As Inpatient Condition: Fair Forms: ED Satisfaction Letter Time of Disposition: 19:20 Weakness HPI - General Chief complaint: ED Weakness Stated complaint: "weakness, fell 2 days ago, rt arm pain" Source: patient Mode of arrival: ambulatory Limitations: no limitations Nursing Notes Reviewed: Yes Vital Signs Reviewed: Yes - History of Present Illness HPI Narrative: 77-year-old male with history of stage IV cancer presents to the emergency department complaining of generalized weakness as well as recent falls. Patient states he fell approximately 2 days ago onto his right side and right shoulder pain he says his whole body hurts which is normal for him he recently has undergone 4 sets of chemotherapy. And he states to me "I am ready to go to [facility] as Sim[facility] is calling me". Patient states that he feels very weak and feels unsafe at home due to falling. He has a home with his . Patient says he does have a nurse that checks on him regularly. He was recently diagnosed with a lower leg infection and does get them wrapped weekly. Patient says that he has no specific complaints as he is generalized feels weak. He said he has no fevers but has been nauseous and did vomit yesterday but said there was no blood in it. Patient otherwise has no complaints including no headaches, blurry vision, neck pain, back pain, chest pain, shortness of breath , abdominal pain, changes in bowel movements, pain with urination, changes in weight loss. - Related Data Home Medications Medication Instructions Recorded Confirmed Aspirin [Lo-Dose Aspirin EC] 81 mg PO DAILY 06/05/17 09/02/17 GlipiZIDE [Glipizide Xl] 5 mg PO DAILY 06/23/17 09/02/17 Metformin HCl [Glucophage] 1,000 mg PO BID 08/16/17 09/02/17 Atorvastatin [Lipitor] 40 mg PO HS 09/08/17 09/08/17 Previous Rx's Medication Instructions Recorded Ondansetron [Zofran ODT] 8 mg SL Q4HR PRN #60 tab.rapdis 06/13/17 Prochlorperazine Maleate 10 mg PO Q6HR PRN #60 tablet 06/13/17 [Compazine] Omeprazole [PriLOSEC] 40 mg PO BIDAC #60 capsule. 07/13/17 Calcium Phosphate Trib/Vit D3 2 each PO DAILY #60 tab.chew 08/02/17 [Calcium + Vitamin D3 Gummies] Sucralfate [Carafate] 1 gm PO QIDAC #1200 ml 08/02/17 Dexamethasone 2 mg PO DAILY #15 tab 08/16/17 OxyCODONE Immed Rel [Roxicodone 5 5 mg PO BID PRN #60 tablet 09/02/17 MG] Sertraline [Zoloft] 50 mg PO DAILY #30 tablet 09/02/17 Allergies Allergy/AdvReac Type Severity Reaction Status Date / Time morphine Allergy Vomiting Verified 08/16/17 08:46 metformin AdvReac Gastrointestinal Verified 08/16/17 08:46 Upset Review of Systems: 10 point review of systems done and negative unless otherwise stated in the history of present illness. All systems ED: reviewed and negative except as stated. Review of Systems: As Per [facility] Past Medical History - Past Medical History Attestation: Yes The following information was validated with the patient. Source: patient Medical history: Reports: cancer, diabetes, hypertension Surgical history: Reports: herniorrhaphy Psychiatric history: Reports: no psych history - Social History Smoking Status: Never smoker Smokeless Tobacco Status: No Alcohol use: Reports: none Drug use: Reports: none Physical Exam - General Limitations: no limitations General appearance: alert, in no apparent distress - Head Head exam: atraumatic, normocephalic, normal inspection - Eye Eye exam: Present: normal appearance, PERRL, EOMI - ENT ENT exam: normal exam, normal oropharynx, mucous membranes moist - Neck Neck exam: Present: normal inspection, full ROM, trachea midline - Chest Chest inspection: Present: normal inspection, symmetric chest wall rise - Respiratory Respiratory exam: Present: normal lung sounds bilaterally - Cardiovascular Cardiovascular exam: Present: regular rate, normal rhythm, normal heart sounds - Abdominal Exam Abdominal exam: Present: soft, Non-Tender, normal bowel sounds. Absent: tenderness, distention, guarding, rebound, rigidity - Extremities Exam Extremities exam: Present: normal inspection, full ROM. Absent: tenderness, pedal edema - Expanded Lower Extremity Exam Neurovascular/Tendon exam: Present: normal capillary refill. Absent: pulse deficit, motor deficit, sensory deficit, tendon deficit - Back Exam Back exam: Present: normal inspection, full ROM. Absent: tenderness - Neurological Exam Neurological exam: Present: alert, oriented X3 - Skin Skin exam: Present: warm, dry, intact, normal color Course Course Narrative: 77-year-old male presented to the emergency department with generalized weakness. We will do a broad workup on him including CT head and neck as well as CT of the chest. We will do basic labs including CBC, CMP, troponin, mag, Miguel, blood cultures, urinalysis as well as chest x-ray and EKG. At this time we will give him IV fluids and Zofran for nausea. Will hold off and give antibiotics until we find a source. Patient's most likely disposition will be admission I did speak with patient about what his DNR status is an patient states that he does not want to be resuscitated he is considering hospice and said that he would like to speak with some programs with her options are going forward concerning hospice. Vital Signs Temperature 97.1 F L 09/08/17 15:02 Pulse Rate 114 09/08/17 15:02 Respiratory Rate 18 09/08/17 15:02 Blood Pressure 125/85 09/08/17 15:02 O2 Sat by Pulse Oximetry 96 09/08/17 15:02 Temperature 97.1 F L 09/08/17 15:02 Pulse Rate 107 09/08/17 17:02 Respiratory Rate 18 09/08/17 15:02 Blood Pressure 106/73 09/08/17 17:02 O2 Sat by Pulse Oximetry 97 09/08/17 17:02 Oxygen Delivery Oxygen Delivery Room Air Weakness - [facility] Narrative Medical decision making narrative: 77-year-old male presenting to the emergency department complaining of generalized weakness and fall. CT had neck and back showing no acute abnormalities. There was a pleural effusion on CT angiogram of his chest. No signs of any pulmonary embolism. X-ray of the humerus did show a humeral head fracture unsure if this is acute from his fall or due to his cancer. Did give patient sling. Labs came back showing a leukocytosis as well as an elevated lactate. He did have elevated troponin of 0.06 which is new for him. He had no acute EKG changes. He did have it low phosphate. We did start him on broad- spectrum Zosyn as there most likely is an infection somewhere. Urinalysis still pending but we did give Bone catheter as he is very weak and then bound and did not want to risk him standing up to urinate due to his fall risk. Patient is not on any blood thinners. We gave the patient 2 L of IV fluids was started help with his symptoms. Patient due to generalized weakness will be admitted to the hospitalist for I spoke with Dr. Winkler who agreed to admit the patient to their service. They also said they would like contact information for hospice I told him this can be done up on the floor. Patient is admitted in stable condition. Chest X-Ray 09/08/17 15:12 IMPRESSION: Right-sided effusion with right-sided rib fractures, and no evidence for pneumothorax. Probable humeral neck and humeral head fracture. D/ / 09/08/2017 16:22:08 Anton Rice MD / [facility] Interpreting Provider: Anton Rice MD Head CT 09/08/17 15:13 IMPRESSION: Lucent right frontal bone lesions concerning for a neoplastic lesion. Mild small vessel ischemic change with a few probable prior lacunar infarcts. There is no hemorrhage Multiple bone lesions in the cervical spine suggesting metastatic disease. See above for details Tiny lucency in the pedicle on the left at C7 most likely due to an underlying lesion with combination of osteopenia. A hairline fracture would be difficult to entirely exclude. Right-sided pleural effusion with associated apical airspace disease, likely atelectasis. D/ / Zana Mcclendon / Zana Mcclendon Interpreting Provider: Zana Mcclendon Cervical Spine CT 09/08/17 15:15 IMPRESSION: Lucent right frontal bone lesions concerning for a neoplastic lesion. Mild small vessel ischemic change with a few probable prior lacunar infarcts. There is no hemorrhage Multiple bone lesions in the cervical spine suggesting metastatic disease. See above for details Tiny lucency in the pedicle on the left at C7 most likely due to an underlying lesion with combination of osteopenia. A hairline fracture would be difficult to entirely exclude. Right-sided pleural effusion with associated apical airspace disease, likely atelectasis. D/ / Zana Mcclendon / Zana Mcclendon Interpreting Provider: Zana Mcclendon Forearm X-Ray 09/08/17 15:17 IMPRESSION: No acute osseous abnormality. D/ / Papo Villareal MD / Papo Villareal MD Interpreting Provider: Papo Villareal MD Chest CTA 09/08/17 15:24 IMPRESSION: No evidence of pulmonary embolism or acute pulmonary abnormality. Mild perihilar edema. Increasing moderate right pleural effusion. Pathologic fracture T12 unchanged. Acute fracture right humeral head incompletely imaged. Other incidental findings as noted above unchanged. This includes a right hepatic mass. D/ / Dixon Bliss MD / Dixon Bliss MD Interpreting Provider: Dixon Bliss MD Humerus X-Ray 09/08/17 16:17 IMPRESSION: Findings suspicious for comminuted fracture of the right proximal humerus. The heterogeneity of the humeral head raises concern for metastatic involvement. Consider CT or MRI for further evaluation. D/ / 09/08/2017 16:45:45 Marco Meeks MD / td Interpreting Provider: Marco Meeks MD - Medical Records Medical records reviewed: Yes I reviewed the patient's medical records. - Lab Data Lab results reviewed: Yes I reviewed the patient's lab results. Result diagrams: 09/08/17 16:14 09/08/17 16:14 Lab Results 09/08/17 09/08/17 09/08/17 Range/Units 16:14 16:14 16:14 WBC 22.2 H D (4.3-11.1) K/mcL RBC 3.53 L (4.19-5.50) M/mcL Hgb 10.0 L (12.9-16.9) g/dL Hct 32.1 L (37.5-50.1) % MCV 90.9 (83.0-100.0) fL MCH 28.3 (28.0-33.3) pg MCHC 31.2 L (31.6-35.5) g/dL RDW 22.6 H (11.5-14.5) % Plt Count 313 (140-400) K/mcL MPV 9.8 (9.4-12.4) fL Immature Gran % 2.5 (0-4) % Seg Neutrophils % 81.7 % Lymphocytes % 8.7 % Monocytes % 7.0 % Eosinophils % 0.0 % Basophils % 0.1 % Neutrophils # 18.1 H (1.6-8.9) K/mcL Lymphocytes # 1.9 (0.6-4.6) K/mcL Monocytes # 1.6 H (0.0-1.3) K/mcL Eosinophils # 0.0 (0.0-0.6) K/mcL Basophils # 0.0 (0.0-0.2) K/mcL Nucleated RBCs/100 WBC 0.3 H (0) /100 WBC PT 15.3 H (9.4-12.1) Seconds INR 1.4 Sodium 134 L (136-145) mEq/L Potassium 4.0 (3.5-5.1) mEq/L Chloride 102 (98-107) mEq/L Carbon Dioxide 25 (23-29) mEq/L BUN 27 H (8-23) mg/dL Creatinine 0.72 (0.70-1.30) mg/dL Est GFR ( Amer) > 60 (> 60) Est GFR (Non-Af Amer) > 60 (> 60) BUN/Creatinine Ratio 38 H (6-26) Glucose 130 H (70-105) mg/dL POC Glucose (58-89) Calculated Osmolality 285 (280-300) Lactic Acid (0.5-2.2) mmol/L Calcium 8.3 L (8.6-10.3) mg/dL Phosphorus 1.0 L* (2.7-4.5) mg/dL Magnesium 1.8 (1.6-2.6) mg/dL Total Bilirubin 0.6 (0.3-1.0) mg/dL Direct Bilirubin (0.0-0.2) mg/dL Indirect Bilirubin (0.0-1.2) mg/dL AST 61 H (13-39) Units/L ALT 36 (7-52) Units/L Alkaline Phosphatase 805 H (34-104) Units/L Creatine Kinase 17 L (30-223) Units/L Troponin I (< 0.04) ng/mL Serum Total Protein 5.2 L (6.4-8.9) g/dL Albumin 2.0 L (3.5-5.7) g/dL Globulin 3.2 (2.4-3.5) g/dL Albumin/Globulin Ratio 0.6 L (1.1-2.2) Lipase (11-82) Units/L 09/08/17 09/08/17 09/08/17 Range/Units 16:14 16:14 16:14 WBC (4.3-11.1) K/mcL RBC (4.19-5.50) M/mcL Hgb (12.9-16.9) g/dL Hct (37.5-50.1) % MCV (83.0-100.0) fL MCH (28.0-33.3) pg MCHC (31.6-35.5) g/dL RDW (11.5-14.5) % Plt Count (140-400) K/mcL MPV (9.4-12.4) fL Immature Gran % (0-4) % Seg Neutrophils % % Lymphocytes % % Monocytes % % Eosinophils % % Basophils % % Neutrophils # (1.6-8.9) K/mcL Lymphocytes # (0.6-4.6) K/mcL Monocytes # (0.0-1.3) K/mcL Eosinophils # (0.0-0.6) K/mcL Basophils # (0.0-0.2) K/mcL Nucleated RBCs/100 WBC (0) /100 WBC PT (9.4-12.1) Seconds INR Sodium (136-145) mEq/L Potassium (3.5-5.1) mEq/L Chloride (98-107) mEq/L Carbon Dioxide (23-29) mEq/L BUN (8-23) mg/dL Creatinine (0.70-1.30) mg/dL Est GFR ( Amer) (> 60) Est GFR (Non-Af Amer) (> 60) BUN/Creatinine Ratio (6-26) Glucose (70-105) mg/dL POC Glucose (58-89) Calculated Osmolality (280-300) Lactic Acid 2.6 H (0.5-2.2) mmol/L Calcium (8.6-10.3) mg/dL Phosphorus (2.7-4.5) mg/dL Magnesium (1.6-2.6) mg/dL Total Bilirubin 0.6 (0.3-1.0) mg/dL Direct Bilirubin 0.2 (0.0-0.2) mg/dL Indirect Bilirubin 0.4 (0.0-1.2) mg/dL AST 61 H (13-39) Units/L ALT 36 (7-52) Units/L Alkaline Phosphatase 810 H (34-104) Units/L Creatine Kinase (30-223) Units/L Troponin I 0.06 H* (< 0.04) ng/mL Serum Total Protein 5.2 L (6.4-8.9) g/dL Albumin 2.0 L (3.5-5.7) g/dL Globulin 3.2 (2.4-3.5) g/dL Albumin/Globulin Ratio 0.6 L (1.1-2.2) Lipase 7 L (11-82) Units/L 09/08/17 Range/Units 16:58 WBC (4.3-11.1) K/mcL RBC (4.19-5.50) M/mcL Hgb (12.9-16.9) g/dL Hct (37.5-50.1) % MCV (83.0-100.0) fL MCH (28.0-33.3) pg MCHC (31.6-35.5) g/dL RDW (11.5-14.5) % Plt Count (140-400) K/mcL MPV (9.4-12.4) fL Immature Gran % (0-4) % Seg Neutrophils % % Lymphocytes % % Monocytes % % Eosinophils % % Basophils % % Neutrophils # (1.6-8.9) K/mcL Lymphocytes # (0.6-4.6) K/mcL Monocytes # (0.0-1.3) K/mcL Eosinophils # (0.0-0.6) K/mcL Basophils # (0.0-0.2) K/mcL Nucleated RBCs/100 WBC (0) /100 WBC PT (9.4-12.1) Seconds INR Sodium (136-145) mEq/L Potassium (3.5-5.1) mEq/L Chloride (98-107) mEq/L Carbon Dioxide (23-29) mEq/L BUN (8-23) mg/dL Creatinine (0.70-1.30) mg/dL Est GFR ( Amer) (> 60) Est GFR (Non-Af Amer) (> 60) BUN/Creatinine Ratio (6-26) Glucose (70-105) mg/dL POC Glucose 129 H (58-89) Calculated Osmolality (280-300) Lactic Acid (0.5-2.2) mmol/L Calcium (8.6-10.3) mg/dL Phosphorus (2.7-4.5) mg/dL Magnesium (1.6-2.6) mg/dL Total Bilirubin (0.3-1.0) mg/dL Direct Bilirubin (0.0-0.2) mg/dL Indirect Bilirubin (0.0-1.2) mg/dL AST (13-39) Units/L ALT (7-52) Units/L Alkaline Phosphatase (34-104) Units/L Creatine Kinase (30-223) Units/L Troponin I (< 0.04) ng/mL Serum Total Protein (6.4-8.9) g/dL Albumin (3.5-5.7) g/dL Globulin (2.4-3.5) g/dL Albumin/Globulin Ratio (1.1-2.2) Lipase (11-82) Units/L - Radiology Data Radiology results reviewed: Yes I reviewed the patient's radiology results. - EKG Data EKG attestation: Yes I reviewed and interpreted this EKG. EKG results narrative: EKG done at 1522 review myself and the attending shows sinus tachycardia at a rate of 113, NM interval 140, QRS 81, QTC 371 with normal axis. There is no acute ST changes no acute T-wave abnormalities or any signs of other ischemia. No signs of heart block or hypertrophy or heart strain. No signs of WPW/ Brugada syndrome. There is no old EKG to compare with.
[2017-09-08 16:29] LABS: Basophils % 0.1 %; Hematocrit 32.1 % (37.5-50.1); Immature Granulocytes % 2.5 % (0-4); Lymphocytes # 1.9 K/mcL (0.6-4.6); Lymphocytes % 8.7 %; Mean Corpuscular HGB Conc 31.2 g/dL (31.6-35.5); Mean Corpuscular Hemoglobin 28.3 pg (28.0-33.3); Mean Corpuscular Volume 90.9 fL (83.0-100.0); Mean Platelet Volume 9.8 fL (9.4-12.4); Monocytes # 1.6 K/mcL (0.0-1.3); Neutrophils # 18.1 K/mcL (1.6-8.9); Nucleated Red Blood Cells 0.3 /100 WBC (0); Platelet Count 313 K/mcL (140-400); Red Blood Count 3.53 M/mcL (4.19-5.50); Red Cell Distribution Width 22.6 % (11.5-14.5); Segmented Neutrophils % 81.7 %
[2017-09-08] MEDS ORDERED: Piperacillin/Tazobactam 3.375 GM in Water for inj. (sterile) 20 ML IVP ONE (16:33)
[2017-09-08 16:35] LABS: INR 1.4; Prothrombin Time 15.3 Seconds (9.4-12.1)
--- NOTE | 2017-09-08 16:39 | Emergency Department Note ---
START Narrative - START START: I examined this patient and my medical decision-making was reviewed with the Resident Physician. I agree with the documented findings, disposition and treatment plan as described except to the extent set forth below. 77 year old male presents to the eD with mutliple falls most recently one from yesterday where he injured his right side, unsure of head injury. It appears patinet has a right sided rib fractures and probable right humeral head/neck fracture and he is tachycardiac with a WBC of 22 (+) SIRS criteria. Patient will be admitted to medicine after CTA chest is done to rule out PN vs PE vs PTX.
[2017-09-08 16:48] LABS: Alanine Aminotransferase 36 Units/L (7-52); Albumin/Globulin Ratio 0.6 (1.1-2.2); Alkaline Phosphatase 805 Units/L (34-104); Aspartate Amino Transferase 61 Units/L (13-39); BUN/Creatinine Ratio 38 (6-26); Bilirubin,Total 0.6 mg/dL (0.3-1.0); Blood Urea Nitrogen 27 mg/dL (8-23); Calcium 8.3 mg/dL (8.6-10.3); Carbon Dioxide 25 mEq/L (23-29); Chloride 102 mEq/L (98-107); Creatine Kinase 17 Units/L (30-223); Globulin 3.2 g/dL (2.4-3.5); Glucose 130 mg/dL (70-105); Magnesium 1.8 mg/dL (1.6-2.6); Osmolality,Calculated 285 (280-300); Sodium 134 mEq/L (136-145); Total Protein 5.2 g/dL (6.4-8.9); eGFR For African Americans > 60 (> 60); eGFR For Non-African Americans > 60 (> 60)
[2017-09-08 16:49] LABS: Albumin/Globulin Ratio 0.6 (1.1-2.2); Bilirubin,Direct 0.2 mg/dL (0.0-0.2); Bilirubin,Indirect 0.4 mg/dL (0.0-1.2); Bilirubin,Total 0.6 mg/dL (0.3-1.0); Globulin 3.2 g/dL (2.4-3.5); Total Protein 5.2 g/dL (6.4-8.9)
[2017-09-08] MEDS ORDERED: Aspirin 81 MG TAB.CHEW PO ONE (17:24)
[2017-09-08 19:26] LABS: Bilirubin,Urine Small (Negative); Blood,Urine Large (Negative); Clarity,Urine Cloudy (Clear); Color,Urine Yellow (Yellow); Glucose,Urine (UA) Normal (Normal); Ketones,Urine Negative (Negative); Leukocyte Esterase,Urine Negative (Negative); Nitrite,Urine Negative (Negative); Protein,Urine 30 mg/dL (Neg-Trace); Specific Gravity,Urine > 1.030 (1.010-1.025); Urobilinogen,Urine Normal (Normal)
[2017-09-08 19:29] LABS: Bacteria,Urine None Seen per hpf (None-Few); RBC,Urine TNTC per hpf (0-3); Squamous Epithelial Cell,Urine Many per lpf (None-Few)
[2017-09-08 19:54] LABS: Calcium Oxalate Crystals,Urine Present; Hyaline Casts,Urine Few per lpf (None-Few); Mucus,Urine Few (Few)
[2017-09-08] MEDS ORDERED: *HR* OxyCODONE Immed Rel 5 MG TABLET PO PRN (20:51)
[2017-09-08] MEDS ORDERED: Naloxone 0.4 MG/ML INJ IVP PRN (20:51)
[2017-09-08] MEDS ORDERED: Ondansetron 4 MG/2 ML VIAL IVP PRN (20:51)
[2017-09-08] MEDS ORDERED: *HR* HYDROmorphone (PF) 1 MG/ML SYRINGE IVP PRN (20:51)
[2017-09-08] MEDS ORDERED: Dextrose Gel 15 GM/37.5 ML TUBE PO PRN ×2 (21:02)
[2017-09-08] MEDS ORDERED: D5% in Water 1,000 ML IVC PRN (21:02)
[2017-09-08] MEDS ORDERED: *HR* Dextrose 50 % in Water (Syg) 50 ML SYRINGE IVP PRN (21:02)
--- NOTE | 2017-09-08 21:15 | Internal Med History&Physical ---
Date of Encounter: 09/08/17 Time of Encounter: 19:50 Assessment and Plan (1) Sepsis Current visit: Yes Status: Acute 1. Patient and family do not want any aggressive measures. 2. They are OK with IVF and antibiotics but no further aggressive measures. 3. Patient and family wish to meet with Hospice and proceed with end of life care. 4. Cultures have been drawn in ER. Qualifiers: Sepsis type: sepsis due to unspecified organism Qualified Code(s): A41.9 - Sepsis, unspecified organism (2) Metastatic adenocarcinoma Current visit: Yes Status: Acute 1. Will treat pain with oral and/or IV opiates as needed for comfort care. 2. Consult Palliative care to proceed with end of life care. 3. If necessary, will consult oncology to discuss any further palliative treatments, but patient expressed a desire to proceed with Hospice. (3) Pleural effusion Current visit: Yes Status: Acute 1. Symptomatic treatment with oxygen, pain control, and antibiotics for possible infection. 2. Patient does not want aggressive measures. However, thoracentesis may be necessary for comfort measures if symptoms remain uncontrolled. (4) Rib fractures Current visit: Yes Status: Acute 1. Pain control as above. 2. Due to fall. Qualifiers: Encounter type: initial encounter Rib fracture type: multiple ribs Fracture type: closed Laterality: right Qualified Code(s): S22.41XA - Multiple fractures of ribs, right side, initial encounter for closed fracture (5) Failure to thrive Current visit: Yes Status: Acute 1. Due to malignancy. 2. Will hydrate with IVF and replace electrolytes. 3. Palliative care per patient request. Qualifiers: Failure to thrive age range: in adult Qualified Code(s): R62.7 - Adult failure to thrive (6) DVT prophylaxis Current visit: No Status: Acute 1. Heparin SQ. Internal Medicine - H&P: HPI Chief complaint: s/p fall; weakness; intractable pain Admitted From: Emergency Dept Plans for Post Hospital Care: Hospice - Medical Facility History of present illness: Mr. Guzman is a 77 year old male who presents with profound weakness, severe pain , and status post fall. Work-up revealed patient to have several rib fractures and pleural effusion. He is suffering from end-stage metastatic adenocarcinoma of the liver. Patient and family expressed interest and wishes to proceed with hospice care. Patient was evaluated in the ER and admitted to the hospitalist service. Upon my assessment of the patient in the ER, he is quite weak and feeble. He is having moderate to severe pain. and family are present at bedside. Patient denies any chills or night sweats but has had some subjective fevers. He has had very little oral intake. He is profoundly weak and is getting progressively weaker. He is having some difficulty breathing. I reviewed his labs and note that he meets criteria for sepsis. I spoke with the patient and family, and they are agreeable to conservative treatment with IV fluids and antibiotics. Beyond that, however, patient and family do not wish to have any aggressive measures. Patient expressed interest and desire to proceed with hospice care. I informed them that I would consult palliative care in the morning and oncology to discuss his ongoing palliative treatment. He and his confirmed that he would like to be DNR CC CODE STATUS at this time. Other than the above conservative measures, he only wants comfort care. I informed patient and family that I will replace his electrolytes, hydrate him , and continue IV antibiotics. In the event he decompensates tonight and beyond , patient does not wish to have any aggressive measures whatsoever. He only wishes comfort care and pain control. Past Med Surg Social Fam HX - Past Medical History Attestation: Yes The following information was validated with the patient. Source: patient, old records reviewed, obtained from family Medical history: cancer (metastatic adenocarcinoma of liver/biliary system), diabetes, hypertension Psychiatric history: no psych history - Past Surgical History Surgical History: herniorrhaphy - Social History Smoking Status: Never smoker Smokeless Tobacco Status: No Alcohol use: none Drug use: none Current living situation: Home, With Family Activity Level: Mostly sedentary Recent Out of Country Travel Within the Last 8 Weeks: No - Family History Mother Hx Family GI Disorders: No Father Hx Family Cardiac Disorders: Yes (CAD) Hx Family Cancer: Yes (Prostate) Internal Medicine - H&P: Meds Aspirin [Lo-Dose Aspirin EC] 81 mg PO DAILY 06/05/17 [History] Ondansetron [Zofran ODT] 8 mg SL Q4HR PRN #60 tab.rapdis 06/13/17 [Rx] Prochlorperazine Maleate [Compazine] 10 mg PO Q6HR PRN #60 tablet 06/13/17 [Rx] GlipiZIDE [Glipizide Xl] 5 mg PO DAILY 06/23/17 [History] Omeprazole [PriLOSEC] 40 mg PO BIDAC #60 capsule.dr 07/13/17 [Rx] Calcium Phosphate Trib/Vit D3 [Calcium + Vitamin D3 Gummies] 2 each PO DAILY # 60 tab.chew 08/02/17 [Rx] Sucralfate [Carafate] 1 gm PO QIDAC #1200 ml 08/02/17 [Rx] Dexamethasone 2 mg PO DAILY #15 tab 08/16/17 [Rx] Metformin HCl [Glucophage] 1,000 mg PO BID 08/16/17 [History] OxyCODONE Immed Rel [Roxicodone 5 MG] 5 mg PO BID PRN #60 tablet 09/02/17 [Rx] Sertraline [Zoloft] 50 mg PO DAILY #30 tablet 09/02/17 [Rx] Atorvastatin [Lipitor] 40 mg PO HS 09/08/17 [History] 3 Allergy/AdvReac Type Severity Reaction Status Date / Time morphine Allergy Vomiting Verified 08/16/17 08:46 metformin AdvReac Gastrointestinal Verified 08/16/17 08:46 Upset - Constitutional Constitutional: anorexia, fatigue, fever(s), weakness, no chills, no night sweats - EENT Eyes: no blurry vision, no change in vision Ears: no ear pain, no tinnitus Nose, mouth and throat: no nasal congestion, no sinus pressure, no sore throat - Cardiovascular Cardiovascular ROS IM: chest pain (rib pain from fractures), dyspnea - Respiratory Respiratory: dyspnea, no cough, no hemoptysis, no chest congestion, no excessive phlegm production, no change in phlegm color - Gastrointestinal Gastrointestinal: abdominal pain, nausea, no diarrhea, no vomiting - Genitourinary Genitourinary ROS male: no dysuria, no flank pain, no hematuria - Musculoskeletal Musculoskeletal ROS IM: arthralgias, back pain, muscle cramps, muscle weakness - Integumentary Integumentary IM: no rash, no jaundice - Neurological Neurological ROS: dizziness, frequent falls, weakness, no focal weakness, no headache(s), no numbness - Psychiatric Psychiatric: no anxiety, no depression - Endocrine Endocrine IM: no polydipsia, no polyuria - Hematologic/Lymphatic Hematologic/Lymphatic: easy bruising - Allergic/Immunologic Allergic/Immunologic: GI upset with certain foods, no wheezing - Constitutional Vitals: Temp Pulse Resp BP Pulse Ox 97.1 F L 100 16 122/84 95 09/08/17 15:02 09/08/17 20:00 09/08/17 20:54 09/08/17 20:54 09/08/17 20:00 General appearance: Present: cooperative, A&O X 3, pleasant, severe distress ( due to pain), answers questions appropriately - Head Head exam: Present: atraumatic, normal inspection - Eye Eye exam: Present: EOMI, normal appearance, PERRL. Absent: scleral icterus Pupils: Present: normal accommodation - ENT ENT exam: Present: mucous membranes dry, normal exam - Neck Neck exam general surgery: Present: full ROM, supple. Absent: lymphadenopathy, tenderness - Respiratory Respiratory exam: Present: chest wall tenderness (right ribs), decreased breath sounds, rales, respiratory distress (mild), rhonchi. Absent: wheezes - Cardiovascular Cardiovascular exam: Present: distant heart sounds, +S1, +S2, tachycardia. Absent: diastolic murmur, systolic murmur - GI/Abdominal GI/Abdominal exam: Present: hypoactive bowel sounds, soft, tenderness (diffuse) , no peritoneal signs. Absent: rebound - Extremities Exam Extremities exam: Present: tenderness, warm, radial pulses palpable and symmetrical. Absent: calf tenderness, normal capillary refill (delayed; roughly 3 seconds), pedal edema - Neurological Exam Neurological exam: Present: alert, CN II-XII intact, oriented X3, no focal deficits, strengths equal and symetr throughout (very weak throughout but symmetrical) - Psychiatric Psychiatric exam: Present: normal affect, normal mood - Skin Skin exam: Present: dry, pallor, warm. Absent: rash Internal Med - H&P Results - Labs CBC & Chem 7: 09/08/17 16:14 09/08/17 16:14 Labs: Short CBC 09/08/17 Range/Units 16:14 WBC 22.2 H D (4.3-11.1) K/mcL Hgb 10.0 L (12.9-16.9) g/dL Hct 32.1 L (37.5-50.1) % Plt Count 313 (140-400) K/mcL Neutrophils # 18.1 H (1.6-8.9) K/mcL BMP 09/08/17 16:14 Sodium 134 L Potassium 4.0 Chloride 102 Carbon Dioxide 25 BUN 27 H Creatinine 0.72 Glucose 130 H Calcium 8.3 L Cardiac Enzymes 09/08/17 Range/Units 16:14 Troponin I 0.06 H* (< 0.04) ng/mL Liver Function 09/08/17 09/08/17 Range/Units 16:14 16:14 Total Bilirubin 0.6 0.6 (0.3-1.0) mg/dL Direct Bilirubin 0.2 (0.0-0.2) mg/dL AST 61 H 61 H (13-39) Units/L ALT 36 36 (7-52) Units/L Alkaline Phosphatase 805 H 810 H (34-104) Units/L Albumin 2.0 L 2.0 L (3.5-5.7) g/dL Urine 09/08/17 Range/Units 19:18 Urine Color Yellow (Yellow) Urine Clarity Cloudy A (Clear) Urine pH 6.0 (5.0-8.0) pH Units Ur Specific [place] > 1.030 H (1.010-1.025) Urine Protein 30 H (Neg-Trace) mg/dL Urine Glucose (UA) Normal (Normal) mg/dL - Impressions ITS Impressions Chest X-Ray 09/08/17 15:12 IMPRESSION: Right-sided effusion with right-sided rib fractures, and no evidence for pneumothorax. Probable humeral neck and humeral head fracture. D/ / 09/08/2017 16:22:08 Anton Rice MD / [facility] Interpreting Provider: Anton Rice MD Head CT 09/08/17 15:13 IMPRESSION: Lucent right frontal bone lesions concerning for a neoplastic lesion. Mild small vessel ischemic change with a few probable prior lacunar infarcts. There is no hemorrhage Multiple bone lesions in the cervical spine suggesting metastatic disease. See above for details Tiny lucency in the pedicle on the left at C7 most likely due to an underlying lesion with combination of osteopenia. A hairline fracture would be difficult to entirely exclude. Right-sided pleural effusion with associated apical airspace disease, likely atelectasis. D/ / Zana Mcclendon / Zana Mcclendon Interpreting Provider: Zana Mcclendon Cervical Spine CT 09/08/17 15:15 IMPRESSION: Lucent right frontal bone lesions concerning for a neoplastic lesion. Mild small vessel ischemic change with a few probable prior lacunar infarcts. There is no hemorrhage Multiple bone lesions in the cervical spine suggesting metastatic disease. See above for details Tiny lucency in the pedicle on the left at C7 most likely due to an underlying lesion with combination of osteopenia. A hairline fracture would be difficult to entirely exclude. Right-sided pleural effusion with associated apical airspace disease, likely atelectasis. D/ / Zana Mcclendon / Zana Mcclendon Interpreting Provider: Zana Mcclendon Forearm X-Ray 09/08/17 15:17 IMPRESSION: No acute osseous abnormality. D/ / Papo Villareal MD / Papo Villareal MD Interpreting Provider: Papo Villareal MD Chest CTA 09/08/17 15:24 IMPRESSION: No evidence of pulmonary embolism or acute pulmonary abnormality. Mild perihilar edema. Increasing moderate right pleural effusion. Pathologic fracture T12 unchanged. Acute fracture right humeral head incompletely imaged. Other incidental findings as noted above unchanged. This includes a right hepatic mass. D/ / Dixon Bliss MD / Dixon Bliss MD Interpreting Provider: Dixon Bliss MD Humerus X-Ray 09/08/17 16:17 IMPRESSION: Findings suspicious for comminuted fracture of the right proximal humerus. The heterogeneity of the humeral head raises concern for metastatic involvement. Consider CT or MRI for further evaluation. D/ / 09/08/2017 16:45:45 Marco Meeks MD / td Interpreting Provider: Marco Meeks MD - Diagnostic Studies Chest x-ray Status: image reviewed by me (right pleural effusion and rib fractures)
[2017-09-08] MEDS: 0.9 % Sodium Chloride w KCl 20 MEQ/1,000 ML MLS IVC SCH (23:29)
[2017-09-09 04:51] LABS: Alanine Aminotransferase 31 Units/L (7-52); Albumin 1.8 g/dL (3.5-5.7); Albumin/Globulin Ratio 0.6 (1.1-2.2); Alkaline Phosphatase 670 Units/L (34-104); Aspartate Amino Transferase 57 Units/L (13-39); BUN/Creatinine Ratio 41 (6-26); Bilirubin,Total 0.5 mg/dL (0.3-1.0); Blood Urea Nitrogen 27 mg/dL (8-23); Calcium 7.3 mg/dL (8.6-10.3); Carbon Dioxide 24 mEq/L (23-29); Chloride 105 mEq/L (98-107); Globulin 2.9 g/dL (2.4-3.5); Glucose 79 mg/dL (70-105); Magnesium 1.6 mg/dL (1.6-2.6); Osmolality,Calculated 284 (280-300); Phosphorous 2.8 mg/dL (2.7-4.5); Sodium 135 mEq/L (136-145); Total Protein 4.7 g/dL (6.4-8.9); eGFR For African Americans > 60 (> 60); eGFR For Non-African Americans > 60 (> 60)
[2017-09-09] MEDS: *HR* Heparin 5,000 UNIT/ML VIAL SQ SCH ×2 (05:27→18:20)
[2017-09-09] MEDS: Insulin LISPRO 300 UNITS/3 ML VIAL SQ SCH ×3 (07:53→16:31)
[2017-09-09] MEDS: Aspirin Enteric Coated 81 MG Tablet PO SCH (08:12)
[2017-09-09] MEDS: 0.9 % Sodium Chloride w KCl 20 MEQ/1,000 ML MLS IVC SCH (11:32)
--- NOTE | 2017-09-09 11:32 | Internal Med Progress Note ---
Date of Encounter: 09/09/17 Time of Encounter: 09:10 - Assessment and plan (1) Metastatic adenocarcinoma Current Visit: Yes Status: Acute Assessment and plan: Per pt history, end stage metastatic adenocarcinoma of the liver. Pt and family have decided to persue Hospice care and palliative care has been consulted and have seen the pt. Continue pain control Consider oncology consultation for further palliative care if pt and family agree (2) Pleural effusion Current Visit: Yes Status: Acute Assessment and plan: Pleural effusion noted on chest xray and CT, most likely infectious since pt has leukocytosis. Lungs clear and diminished with poor inspiratory effort due to pain from rib fractures. Continue IV antibiotics, 02 as needed to maintain sats > 92%. Pt may require thoracentesis if symptoms do not improve simply for comfort measures. Chest X-Ray 09/08/17 15:12 IMPRESSION: Right-sided effusion with right-sided rib fractures, and no evidence for pneumothorax. Probable humeral neck and humeral head fracture. D/ / 09/08/2017 16:22:08 Anton Rice MD / [facility] Interpreting Provider: Anton Rice MD Chest CTA 09/08/17 15:24 IMPRESSION: No evidence of pulmonary embolism or acute pulmonary abnormality. Mild perihilar edema. Increasing moderate right pleural effusion. Pathologic fracture T12 unchanged. Acute fracture right humeral head incompletely imaged. Other incidental findings as noted above unchanged. This includes a right hepatic mass. D/ / Dixon Bliss MD / Dixon Bliss MD Interpreting Provider: Dixon Bliss MD (3) Rib fractures Current Visit: Yes Status: Acute Assessment and plan: Acute right rib fractures after fall at home. Manage pain, palliative on board. Start incentive spirometry 02 as needed to maintain sats > 92% Qualifiers: Encounter type: initial encounter Rib fracture type: multiple ribs Fracture type: closed Laterality: right Qualified Code(s): S22.41XA - Multiple fractures of ribs, right side, initial encounter for closed fracture (4) Weakness Current Visit: Yes Status: Acute Assessment and plan: Pt has become increasingly more weak over time secondary to advancing cancer process. Pt has opted for palliative care. Will encourage po intake and control pain. (5) Failure to thrive Current Visit: Yes Status: Acute Assessment and plan: Continue IVF hydration, replace electrolytes and treat pleural effusion with IV antibiotics Palliative consulted, pt will go home on Hospice. Qualifiers: Failure to thrive age range: in adult Qualified Code(s): R62.7 - Adult failure to thrive (6) DVT prophylaxis Current Visit: No Status: Acute Assessment and plan: Heparin SQ (7) Humeral head fracture Current Visit: Yes Status: Acute Assessment and plan: Status post fall at home. Rate humerus x-ray suspicious for fracture right proximal humerus, the heterogeneity of the humeral head is concerning for metastatic involvement, pathologic fracture. Sling to right arm. Pain management. Qualifiers: Encounter type: initial encounter Fracture type: closed Laterality: right Qualified Code(s): S42.291A - Other displaced fracture of upper end of right humerus, initial encounter for closed fracture - Time Spent With Patient less than 15 minutes - Subjective Interval history: Pt was seen and assessed at 0910 a.m. Multiple family members at bedside. Pt reports pain to right arm and ribs s/p fall. He denies headache, n/v/d, abdominal pain, dizziness, chest pain or SOB. Pt reports decrease in appetite recently and states that he is always full and can't eat. Pt is going to be evaluated by palliative care team and will go home on Hospice. - Constitutional Vitals: Temp Pulse Resp BP Pulse Ox 98.3 F 98 16 128/75 96 09/09/17 07:32 09/09/17 07:32 09/09/17 07:32 09/09/17 07:32 09/09/17 07:32 General appearance: Present: cooperative, A&O X 3, pleasant, no acute distress, severe distress (due to pain), answers questions appropriately - Head Head exam: Present: atraumatic, normal inspection, normocephalic - Eye Eye exam: Present: normal appearance, conjuntiva pink, sclera anicteric - Neck Neck exam general surgery: Present: normal inspection, supple, trachea midline. Absent: lymphadenopathy - Respiratory Respiratory exam: Present: decreased breath sounds, CTAB. Absent: accessory muscle use, chest wall tenderness, rales, respiratory distress, rhonchi, wheezes - Cardiovascular Cardiovascular exam: Present: RRR, +S1, +S2. Absent: diastolic murmur, gallop, rubs, systolic murmur - GI/Abdominal GI/Abdominal exam: Present: hypoactive bowel sounds, soft, no peritoneal signs. Absent: distended, hepatomegaly, tenderness - Extremities Exam Extremities exam: Present: normal capillary refill, normal inspection, warm, radial pulses palpable and symmetrical. Absent: calf tenderness, cyanotic, pedal edema, tenderness - Neurological Exam Neurological exam: Present: alert, oriented X3, no focal deficits. Absent: strengths equal and symetr throughout, facial droop, speech deficit - Skin Skin exam: Present: dry, intact, normal color, warm. Absent: rash Internal Medicine: Result - Labs CBC & Chem 7: 09/08/17 16:14 09/09/17 04:00 Labs: BMP 09/09/17 04:00 Sodium 135 L Potassium 4.0 Chloride 105 Carbon Dioxide 24 BUN 27 H Creatinine 0.66 L Glucose 79 Calcium 7.3 L Liver Function 09/09/17 Range/Units 04:00 Total Bilirubin 0.5 (0.3-1.0) mg/dL AST 57 H (13-39) Units/L ALT 31 (7-52) Units/L Alkaline Phosphatase 670 H (34-104) Units/L Albumin 1.8 L (3.5-5.7) g/dL - ABG Interpretation ABG results: PT/INR, D-dimer PT 15.3 Seconds (9.4-12.1) H 09/08/17 16:14 Consult Discharge Plan - Plan Referrals: Marcia Perez DO [Primary Care Provider] -
--- NOTE | 2017-09-09 11:35 | Palliative - Consult Note ---
Date of Encounter: 09/09/17 Time of Encounter: 12:40 - Assessment and Plan (1) Cancer associated pain Current Visit: Yes Status: Acute Assessment and plan: Patient has acute rib and humeral fracture - suspected mets in humerus as well. He will eventually be going home with hospice care. He has not tolerated Morphine in the past r/t nausea/vomiting. Will begin low dose Fentanyl patch at 12mcg as prior to these falls, he was not utilizing pain medications. Will continue Oxycodone for breakthrough pain, but will increase interval from every 6 hours to every 3 hours PRN. Monitor. He remains on Dexamethasone as well. (2) Constipation Current Visit: Yes Status: Acute Assessment and plan: With limited mobility, decreased intake, and opioids, will start bowel regimen with Senokot 1tab BID and monitor Qualifiers: Constipation type: unspecified constipation type Qualified Code(s): K59.00 - Constipation, unspecified (3) Decreased appetite Current Visit: Yes Status: Acute Assessment and plan: Patient with no history of thrombus - will begin Megestrol daily and monitor. Will avoid Mirtazepine. as he was recently began on Sertraline. Marinol is typically not covered by hospice unless other medications fail. He has been able to drink some Boost at home. Diet oscillograph technician was in during my visit and will send Magic cups and see if he tolerates. (4) Counseling regarding advanced care planning and goals of care Current Visit: Yes Status: Acute Assessment and plan: Long discussion with pt/, Joy, daughter Matilda, and son regarding goals of care. Patient kept falling asleep during a lot of the discussion. Family had questions regarding IV artificial nutrition and hospice. They understand that his cancer has progressed and he can no longer tolerate chemotherapy, but they are very concerned with the fact he has stopped eating. Discussed end of life care and nutritional issues, risks/benefit of things such as TPN/tube feeding. Explained cancer related anorexia/cachexia. Discussed hospice care at length. They would like to proceed once pain is better managed. They require set up of DME/hospital bed with air mattress as well. Discussed with A MOHSEN Choe. Will work on symptom management over the weekend, and place transition home with [facility] on Tuesday. Referral called to [facility] and contact information for family given. His code status has already been changed to DNRCC. Continue to follow. (5) Metastatic adenocarcinoma Current Visit: Yes Status: Acute (6) Humeral head fracture Current Visit: Yes Status: Acute Qualifiers: Encounter type: initial encounter Fracture type: closed Laterality: right Qualified Code(s): S42.291A - Other displaced fracture of upper end of right humerus, initial encounter for closed fracture (7) Rib fractures Current Visit: Yes Status: Acute Qualifiers: Encounter type: initial encounter Rib fracture type: multiple ribs Fracture type: closed Laterality: right Qualified Code(s): S22.41XA - Multiple fractures of ribs, right side, initial encounter for closed fracture Palliative-CN HPI - Data of Consult Requesting Physician: Pamella Choe CNP Primary Care Provider: Robson Santoro - Consult Narrative History of present illness: Mr. Guzman is a 77 year old male with a history of metastatic cancer, most likely liver with extensive bone mets, who was admitted with weakness, falls, and increasing pain. He has had 2 falls within the last couple of weeks at home. He has been patient of [facility] with Dr. Simmons. He was diagnosed in May 2017 after his abd/hip pain worsened, for what was thought to be arthritis. He decided to pursue chemotherapy treatment that was not tolerated well. , Joy, at bedside states he was "taking a break" from treatment to try and regain some strength, but since that time has had increasing weakness/falls, decreasing appetite, and mood changes. He was recently started on Sertraline for depression. He had an admission earlier this month for dehydration after chemotherapy. Testing upon admission demonstrated right sided rib fractures, cervical spine lesions, as well as rt humerus likely disease and acute fractures. 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 Upon my visit, he awakens easily, and does answer short to questioning. Closes eye between questions. States "I just feel numb". , son, and daughter at bedside. I did not turn him to view sacral decub as sling has not been placed yet. He states that oral Oxycodone did help with his discomfort. Denies nausea /vomiting. Denies constipation. Flat affect - family states they think he has "given up". They have expressed interest in hospice care at home. CC: Pamella Choe CNP Past Med Surg Social Fam HX - Past Medical History Medical history: cancer (metastatic adenocarcinoma of liver/biliary system), diabetes, hypertension Psychiatric history: no psych history - Past Surgical History Surgical History: herniorrhaphy - Social History Smoking Status: Never smoker Smokeless Tobacco Status: No Alcohol use: none Drug use: none - Family History Mother Hx Family GI Disorders: No Father Hx Family Cardiac Disorders: Yes (CAD) Hx Family Cancer: Yes (Prostate) Medications and Allergies Aspirin [Lo-Dose Aspirin EC] 81 mg PO DAILY 06/05/17 [History] Ondansetron [Zofran ODT] 8 mg SL Q4HR PRN #60 tab.rapdis 06/13/17 [Rx] Prochlorperazine Maleate [Compazine] 10 mg PO Q6HR PRN #60 tablet 06/13/17 [Rx] GlipiZIDE [Glipizide Xl] 5 mg PO DAILY 06/23/17 [History] Omeprazole [PriLOSEC] 40 mg PO BIDAC #60 capsule.dr 07/13/17 [Rx] Calcium Phosphate Trib/Vit D3 [Calcium + Vitamin D3 Gummies] 2 each PO DAILY # 60 tab.chew 08/02/17 [Rx] Sucralfate [Carafate] 1 gm PO QIDAC #1200 ml 08/02/17 [Rx] Dexamethasone 2 mg PO DAILY #15 tab 08/16/17 [Rx] Metformin HCl [Glucophage] 1,000 mg PO BID 08/16/17 [History] OxyCODONE Immed Rel [Roxicodone 5 MG] 5 mg PO BID PRN #60 tablet 09/02/17 [Rx] Sertraline [Zoloft] 50 mg PO DAILY #30 tablet 09/02/17 [Rx] Atorvastatin [Lipitor] 40 mg PO HS 09/08/17 [History] 3 Allergy/AdvReac Type Severity Reaction Status Date / Time morphine Allergy Vomiting Verified 08/16/17 08:46 metformin AdvReac Gastrointestinal Verified 08/16/17 08:46 Upset All systems: reviewed and no additional remarkable complaints except as stated ( decreased appetite, weakness, abd/back/rt arm pain) Palliative Care-Exam - Constitutional Vitals: Temp Pulse Resp BP Pulse Ox 98.3 F 98 16 128/75 96 09/09/17 07:32 09/09/17 07:32 09/09/17 07:32 09/09/17 07:32 09/09/17 07:32 General appearance: Present: no acute distress - Head Head Exam: Present: normal inspection, normocephalic - Eye Eye exam: Present: normal appearance, PERRL - Respiratory Respiratory exam: Present: decreased breath sounds, CTAB - Cardiovascular Cardiovascular exam: Present: +S1, +S2, tachycardia - GI/Abdominal Exam GI/Abdominal exam: Present: normal bowel sounds, soft - Extremities Exam Additional comments: 2+ edema to bilateral lower extremities. Old scab to left garcia area from previous fall. I did not turn pt to examine decub as he does not have sling on yet - this has been ordered. - Neurological Exam Neurological exam: Present: alert, oriented X3 Additional comments: Limited range of motion r/t fractures and metastatic disease - Psychiatric Psychiatric exam: Present: depressed, flat affect - Skin Skin exam: Present: dry, pallor, warm Internal Medicine - CN: Reslt - Labs CBC & Chem 7: 09/08/17 16:14 09/09/17 04:00 Labs: BMP 09/09/17 04:00 Sodium 135 L Potassium 4.0 Chloride 105 Carbon Dioxide 24 BUN 27 H Creatinine 0.66 L Glucose 79 Calcium 7.3 L Liver Function 09/09/17 Range/Units 04:00 Total Bilirubin 0.5 (0.3-1.0) mg/dL AST 57 H (13-39) Units/L ALT 31 (7-52) Units/L Alkaline Phosphatase 670 H (34-104) Units/L Albumin 1.8 L (3.5-5.7) g/dL - ABG Interpretation ABG results: PT/INR, D-dimer PT 15.3 Seconds (9.4-12.1) H 09/08/17 16:14 Consult Discharge Plan - Plan Referrals: Marcia Perez DO [Primary Care Provider] - Palliative Quality Palliative Quality: Screen for Code Status: Yes, Screen for Goals of Care: Yes, Screen for Pain: Yes, If Pain Regimen Started, Initiate Bowel Regimen: Yes, Screen for Nausea/Vomitting: Yes
[2017-09-09] MEDS: Megestrol Acetate 400 MG/10 ML UDC PO SCH (11:38)
[2017-09-09] MEDS: *HR* FentaNYL PATCH 12 MCG PATCH TD SCH (11:39)
[2017-09-09 11:49] LABS: Acinetobacter baumannii by PCR Not Detected (Not Detect); Candida albicans by PCR Not Detected (Not Detect); Candida glabrata by PCR Not Detected (Not Detect); Candida krusei by PCR Not Detected (Not Detect); Candida parapsilosis by PCR Not Detected (Not Detect); Candida tropicalis by PCR Not Detected (Not Detect); Enterococcus by PCR Not Detected (Not Detect); Escherichia coli by PCR Not Detected (Not Detect); Klebsiella oxytoca by PCR Not Detected (Not Detect); Klebsiella pneumoniae by PCR Not Detected (Not Detect); Pseudomonas aeruginosa by PCR Not Detected (Not Detect); Serratia marcescens by PCR Not Detected (Not Detect); Staphylococcus aureus by PCR ***DETECTED*** (Not Detect); Streptococcus agalactiae(B)PCR Not Detected (Not Detect); Streptococcus by PCR Not Detected (Not Detect); Streptococcus pneumoniae PCR Not Detected (Not Detect); Streptococcus pyogenes (A) PCR Not Detected (Not Detect); mecA Methicillin-Resist Gene Not Detected (Not Detect)
[2017-09-09] MEDS ORDERED: 0.9 % Sodium Chloride 1,000 ML IVC ONE (12:32)
[2017-09-09] MEDS: CeFAZolin Premix DUPLEX 2,000 MG/50 ML BAG IVPB SCH (16:30)
--- NOTE | 2017-09-09 17:48 | Electrocardiograph Report ---
[address] [address] Test Date: 2017-09-08 Pat Name: Amairani Guzman Department: 104 Room: 3B23 Gender: M Sole Buffer: AM : 1940 Requested By: Gwyn Rodriguez Order Number: [id number] Reading MD: Gabe Mullins Measurements Intervals [place] Rate: 113 P: 22 MT: 140 QRS: 12 QRSD: 81 T: 60 QT: 304 QTc: 371 Interpretive Statements SINUS TACHYCARDIA WITH OCCASIONAL SUPRAVENTRICULAR PREMATURE COMPLEXES LOW QRS VOLTAGE IN EXTREMITY LEADS ABNORMAL RHYTHM ECG Electronically Signed On 09-09-2017 17:46:36 EST by Gabe Mullins
[2017-09-09] MEDS: Sennosides/Docusate Sodium TABLET PO SCH (21:06)
[2017-09-10] MEDS: CeFAZolin Premix DUPLEX 2,000 MG/50 ML BAG IVPB SCH ×3 (00:35→17:50)
[2017-09-10] MEDS: *HR* Heparin 5,000 UNIT/ML VIAL SQ SCH ×2 (04:28→17:50)
[2017-09-10] MEDS: *HR* OxyCODONE Immed Rel 5 MG TABLET PO PRN (04:34)
[2017-09-10 05:00] LABS: Basophils % 0.2 %; Eosinophils # 0.1 K/mcL (0.0-0.6); Eosinophils % 0.4 %; Hematocrit 28.5 % (37.5-50.1); Hemoglobin 9.1 g/dL (12.9-16.9); Immature Granulocytes % 3.2 % (0-4); Lymphocytes # 0.9 K/mcL (0.6-4.6); Lymphocytes % 5.8 %; Mean Corpuscular HGB Conc 31.9 g/dL (31.6-35.5); Mean Corpuscular Hemoglobin 28.3 pg (28.0-33.3); Mean Corpuscular Volume 88.8 fL (83.0-100.0); Mean Platelet Volume 9.5 fL (9.4-12.4); Monocytes # 1.2 K/mcL (0.0-1.3); Monocytes % 7.6 %; Neutrophils # 13.4 K/mcL (1.6-8.9); Platelet Count 234 K/mcL (140-400); Red Blood Count 3.21 M/mcL (4.19-5.50); Segmented Neutrophils % 82.8 %
[2017-09-10 05:21] LABS: BUN/Creatinine Ratio 38 (6-26); Blood Urea Nitrogen 19 mg/dL (8-23); Calcium 6.9 mg/dL (8.6-10.3); Carbon Dioxide 24 mEq/L (23-29); Chloride 106 mEq/L (98-107); Glucose 138 mg/dL (70-105); Osmolality,Calculated 282 (280-300); Potassium 3.6 mEq/L (3.5-5.1); Sodium 134 mEq/L (136-145); eGFR For African Americans > 60 (> 60); eGFR For Non-African Americans > 60 (> 60)
--- NOTE | 2017-09-10 07:43 | Palliative Progress Note ---
Date of Encounter: 09/10/17 Time of Encounter: 07:20 - Assessment and plan (1) Liver metastasis Current Visit: No Status: Chronic (2) Adenocarcinoma Current Visit: No Status: Chronic Assessment and plan: Patient's pain is under good control at this time per the patient, he will probably transition to hospice care on discharge. (3) Cancer associated pain Current Visit: Yes Status: Acute Assessment and plan: Per the patient the pain is under good control at this time, however the nursing staff is having to encourage him to use when necessary's. On discharge the patient will probably opt for hospice care. (4) Counseling regarding advanced care planning and goals of care Current Visit: Yes Status: Acute Assessment and plan: Patient is comfort care, plan is for hospice on discharge. (5) Constipation Current Visit: Yes Status: Acute Assessment and plan: She is having bowel movements is on bowel regimen continue current meds Qualifiers: Constipation type: unspecified constipation type Qualified Code(s): K59.00 - Constipation, unspecified - Time Spent With Patient Total time spent is greater than 50% in coordination of care (as documented) at patient's floor/unit and/or counseling patient: - Subjective Interval history: Patient awakens easily, states that the patch seems to be working quite well for him however he does feel somewhat numb in the area where the patch is. Nursing staff a headache encourage him to take when necessary's. Roll patient states he is feeling at least a little bit better. - Constitutional Vitals: Abnormal lab results WBC 16.1 K/mcL (4.3-11.1) H 09/10/17 04:38 RBC 3.21 M/mcL (4.19-5.50) L 09/10/17 04:38 Hgb 9.1 g/dL (12.9-16.9) L 09/10/17 04:38 Hct 28.5 % (37.5-50.1) L 09/10/17 04:38 RDW 22.0 % (11.5-14.5) H 09/10/17 04:38 Neutrophils # 13.4 K/mcL (1.6-8.9) H 09/10/17 04:38 Nucleated RBCs/100 WBC 0.3 /100 WBC (0) H 09/08/17 16:14 PT 15.3 Seconds (9.4-12.1) H 09/08/17 16:14 Sodium 134 mEq/L (136-145) L 09/10/17 04:38 Creatinine 0.50 mg/dL (0.70-1.30) L 09/10/17 04:38 BUN/Creatinine Ratio 38 (6-26) H 09/10/17 04:38 Glucose 138 mg/dL (70-105) H 09/10/17 04:38 POC Glucose 151 (58-89) H 09/09/17 20:49 Calcium 6.9 mg/dL (8.6-10.3) L 09/10/17 04:38 AST 57 Units/L (13-39) H 09/09/17 04:00 Alkaline Phosphatase 670 Units/L (34-104) H 09/09/17 04:00 Creatine Kinase 17 Units/L (30-223) L 09/08/17 16:14 Troponin I 0.06 ng/mL (< 0.04) H* 09/08/17 16:14 Serum Total Protein 4.7 g/dL (6.4-8.9) L 09/09/17 04:00 Albumin 1.8 g/dL (3.5-5.7) L 09/09/17 04:00 Albumin/Globulin Ratio 0.6 (1.1-2.2) L 09/09/17 04:00 Lipase 7 Units/L (11-82) L 09/08/17 16:14 Urine Clarity Cloudy (Clear) A 09/08/17 19:18 Ur Specific [place] > 1.030 (1.010-1.025) H 09/08/17 19:18 Urine Protein 30 mg/dL (Neg-Trace) H 09/08/17 19:18 Urine Blood Large (Negative) H 09/08/17 19:18 Urine Bilirubin Small (Negative) H 09/08/17 19:18 Urine Microscopic RBC TNTC per hpf (0-3) H 09/08/17 19:18 Urine Microscopic WBC 5-15 per hpf (0-3) H 09/08/17 19:18 Ur Squamous Epith Cells Many per lpf (None-Few) H 09/08/17 19:18 Staphylococcus sp PCR DETECTED (Not Detect) A 09/08/17 16:14 Staph aureus (PCR) DETECTED (Not Detect) A 09/08/17 16:14 General appearance: Present: no acute distress - Head Head exam: Present: atraumatic, normal inspection - Eye Eye exam: Present: normal appearance - ENT ENT exam: Present: mucous membranes moist - Respiratory Respiratory exam: Present: decreased breath sounds - Cardiovascular Cardiovascular exam: Present: irregular rhythm (Slightly), tachycardia - GI/Abdominal GI/Abdominal exam: Present: normal bowel sounds, soft. Absent: tenderness - Extremities Exam Extremities exam: Absent: tenderness - Neurological Exam Neurological exam: Present: alert - Psychiatric Psychiatric exam: Absent: agitated, anxious - Skin Skin exam: Present: dry, warm Palliative Quality Palliative Quality: Screen for Code Status: Yes, Screen for Goals of Care: Yes, Screen for Pain: Yes, If Pain Regimen Started, Initiate Bowel Regimen: Yes, Screen for Nausea/Vomitting: Yes - Labs CBC & Chem 7: 09/10/17 04:38 09/10/17 04:38 Labs: Laboratory Results - last 24 hr 09/09/17 09/09/17 09/09/17 07:30 12:28 16:20 WBC RBC Hgb Hct MCV MCH MCHC RDW Plt Count MPV Immature Gran % Seg Neutrophils % Lymphocytes % Monocytes % Eosinophils % Basophils % Neutrophils # Lymphocytes # Monocytes # Eosinophils # Basophils # Sodium Potassium Chloride Carbon Dioxide BUN Creatinine Est GFR ( Amer) Est GFR (Non-Af Amer) BUN/Creatinine Ratio Glucose POC Glucose 79 75 112 H Calculated Osmolality Lactic Acid Calcium 09/09/17 09/09/17 09/10/17 19:07 20:49 04:38 WBC 16.1 H RBC 3.21 L Hgb 9.1 L Hct 28.5 L MCV 88.8 MCH 28.3 MCHC 31.9 RDW 22.0 H Plt Count 234 MPV 9.5 Immature Gran % 3.2 Seg Neutrophils % 82.8 Lymphocytes % 5.8 Monocytes % 7.6 Eosinophils % 0.4 Basophils % 0.2 Neutrophils # 13.4 H Lymphocytes # 0.9 Monocytes # 1.2 Eosinophils # 0.1 Basophils # 0.0 Sodium Potassium Chloride Carbon Dioxide BUN Creatinine Est GFR ( Amer) Est GFR (Non-Af Amer) BUN/Creatinine Ratio Glucose POC Glucose 151 H Calculated Osmolality Lactic Acid 1.4 Calcium 09/10/17 04:38 WBC RBC Hgb Hct MCV MCH MCHC RDW Plt Count MPV Immature Gran % Seg Neutrophils % Lymphocytes % Monocytes % Eosinophils % Basophils % Neutrophils # Lymphocytes # Monocytes # Eosinophils # Basophils # Sodium 134 L Potassium 3.6 Chloride 106 Carbon Dioxide 24 BUN 19 Creatinine 0.50 L Est GFR ( Amer) > 60 Est GFR (Non-Af Amer) > 60 BUN/Creatinine Ratio 38 H Glucose 138 H POC Glucose Calculated Osmolality 282 Lactic Acid Calcium 6.9 L - ABG Interpretation ABG results: PT/INR, D-dimer PT 15.3 Seconds (9.4-12.1) H 09/08/17 16:14 Consult Discharge Plan - Plan Referrals: Marcia Perez DO [Primary Care Provider] -
[2017-09-10] MEDS: Insulin LISPRO 300 UNITS/3 ML VIAL SQ SCH ×3 (08:04→17:48)
[2017-09-10] MEDS: Sennosides/Docusate Sodium TABLET PO SCH ×2 (08:08→20:06)
[2017-09-10] MEDS: Aspirin Enteric Coated 81 MG Tablet PO SCH (08:08)
[2017-09-10] MEDS: Megestrol Acetate 400 MG/10 ML UDC PO SCH (08:08)
[2017-09-10] MEDS ORDERED: Calcium Gluconate 1,000 MG in D5% in Water 100 ML IVPB ONE (08:18)
--- NOTE | 2017-09-10 08:25 | Internal Med Progress Note ---
Date of Encounter: 09/10/17 Time of Encounter: 09:35 - Assessment and plan (1) Metastatic adenocarcinoma Current Visit: Yes Status: Acute Assessment and plan: Per pt history, end stage metastatic adenocarcinoma of the liver. Pt and family have decided to pursue Hospice care and palliative care has been consulted and have seen the pt. Pt with new fx to right humerus s/p fall, probable mets to humerus Continue pain control, Fentanyl patch per palliative care Palliative following, I appreciate their recommendations and consultation (2) Pleural effusion Current Visit: Yes Status: Acute Assessment and plan: Pleural effusion noted on chest xray and CT, most likely infectious since pt has leukocytosis. Lungs clear and diminished with poor inspiratory effort due to pain from rib fractures. Continue IV antibiotics, 02 as needed to maintain sats > 92%. Pt may require thoracentesis if symptoms do not improve simply for comfort measures. Pt placed on Cefepime for sepsis and bacteremia, discussed with Dr. Valentine, will continue to watch respiratory status and overall condition. Chest X-Ray 09/08/17 15:12 IMPRESSION: Right-sided effusion with right-sided rib fractures, and no evidence for pneumothorax. Probable humeral neck and humeral head fracture. D/ / 09/08/2017 16:22:08 Anton Rice MD / [facility] Interpreting Provider: Anton Rice MD Chest CTA 09/08/17 15:24 IMPRESSION: No evidence of pulmonary embolism or acute pulmonary abnormality. Mild perihilar edema. Increasing moderate right pleural effusion. Pathologic fracture T12 unchanged. Acute fracture right humeral head incompletely imaged. Other incidental findings as noted above unchanged. This includes a right hepatic mass. D/ / Dixon Bliss MD / Dixon Bliss MD Interpreting Provider: Dixon Bliss MD (3) Rib fractures Current Visit: Yes Status: Acute Assessment and plan: Acute right rib fractures after fall at home. Manage pain, palliative on board. Start incentive spirometry 02 as needed to maintain sats > 92% Fentanyl patch for pain control. Qualifiers: Encounter type: initial encounter Rib fracture type: multiple ribs Fracture type: closed Laterality: right Qualified Code(s): S22.41XA - Multiple fractures of ribs, right side, initial encounter for closed fracture (4) Weakness Current Visit: Yes Status: Acute Assessment and plan: Pt has become increasingly more weak over time secondary to advancing cancer process. Pt has opted for palliative care, will go home with Hospice when medically stable. Will encourage po intake and control pain. Nutrition is consulted, magic cups and supplementation. (5) Failure to thrive Current Visit: Yes Status: Acute Assessment and plan: Continue IVF hydration, replace electrolytes and treat pleural effusion, bacteremia with IV antibiotics Palliative consulted, pt will go home on Hospice. Qualifiers: Failure to thrive age range: in adult Qualified Code(s): R62.7 - Adult failure to thrive (6) DVT prophylaxis Current Visit: No Status: Acute Assessment and plan: Heparin SQ (7) Humeral head fracture Current Visit: Yes Status: Acute Assessment and plan: Status post fall at home. Rate humerus x-ray suspicious for fracture right proximal humerus, the heterogeneity of the humeral head is concerning for metastatic involvement, pathologic fracture. Sling to right arm. Pain management, Fentanyl patch Palliative following, request recommendations for pain control prn. Qualifiers: Encounter type: initial encounter Fracture type: closed Laterality: right Qualified Code(s): S42.291A - Other displaced fracture of upper end of right humerus, initial encounter for closed fracture (8) Bacteremia Current Visit: Yes Status: Acute Assessment and plan: One set of blood cultures positive for stapylococcus aureus. I discussed with Dr. Valentine who recommended Cefepime 2grams IV x 6 weeks. Pt has port in right upper chest, pt was on chemotherapy until recently. This is the likely source of infection. Leukocytosis has improved today, but pt still meets sepsis criteria. Closely monitor. Repeat peripheral blood cultures are ordered. Continue IV antibiotics and IVF hydration Monitor labs and overall patient condition. (9) Sepsis Current Visit: Yes Status: Acute Assessment and plan: Pt meets sepsis criteria with leukocytosis, tachycardia, and elevated lactic acid. Pt is improving with IV antibiotics. Pt has pleural effusion and Staph aureus bacteremia. 1 liter fluid bolus yesterday with maintenance fluids infusing Lactic has returned to WNL. Leukocytosis is improving Pt remains tachycardic, normotensive. He is afebrile Continue IV Cefepime 2grams IV x 6 weeks Monitor labs and overall patient condition. Qualifiers: Sepsis type: sepsis due to unspecified organism Qualified Code(s): A41.9 - Sepsis, unspecified organism - Time Spent With Patient less than 15 minutes - Subjective Interval history: Pt was seen and assessed at 0935 a.m. at bedside. He denies headache, n/v/ d, abdominal pain, dizziness, chest pain or SOB. Pt is more alert and coherent today and reports that he is not having pain. - Constitutional Vitals: Temp Pulse Resp BP Pulse Ox 98.7 F 116 18 192/94 94 09/10/17 07:39 09/10/17 07:39 09/10/17 07:39 09/10/17 07:39 09/10/17 07:39 General appearance: Present: cooperative, A&O X 3, pleasant, no acute distress, severe distress (due to pain), answers questions appropriately - Head Head exam: Present: atraumatic, normal inspection, normocephalic - Eye Eye exam: Present: normal appearance, conjuntiva pink, sclera anicteric - Neck Neck exam general surgery: Present: normal inspection, supple, trachea midline. Absent: lymphadenopathy, tenderness - Respiratory Respiratory exam: Present: CTAB. Absent: accessory muscle use, rales, rhonchi, wheezes - Cardiovascular Cardiovascular exam: Present: RRR, +S1, +S2. Absent: diastolic murmur, gallop, rubs, systolic murmur - GI/Abdominal GI/Abdominal exam: Present: normal bowel sounds, soft, no peritoneal signs. Absent: distended, hepatomegaly, tenderness - Extremities Exam Extremities exam: Present: normal capillary refill, normal inspection, warm, radial pulses palpable and symmetrical. Absent: calf tenderness, cyanotic, pedal edema, tenderness - Neurological Exam Neurological exam: Present: alert, oriented X3, no focal deficits. Absent: facial droop, speech deficit - Skin Skin exam: Present: dry, intact, normal color, warm. Absent: rash Internal Medicine: Result - Labs CBC & Chem 7: 09/10/17 04:38 09/10/17 04:38 Labs: Short CBC 09/10/17 Range/Units 04:38 WBC 16.1 H (4.3-11.1) K/mcL Hgb 9.1 L (12.9-16.9) g/dL Hct 28.5 L (37.5-50.1) % Plt Count 234 (140-400) K/mcL Neutrophils # 13.4 H (1.6-8.9) K/mcL BMP 09/10/17 04:38 Sodium 134 L Potassium 3.6 Chloride 106 Carbon Dioxide 24 BUN 19 Creatinine 0.50 L Glucose 138 H Calcium 6.9 L - ABG Interpretation ABG results: PT/INR, D-dimer PT 15.3 Seconds (9.4-12.1) H 09/08/17 16:14 Consult Discharge Plan - Plan Referrals: Marcia Perez DO [Primary Care Provider] -
[2017-09-11] MEDS: CeFAZolin Premix DUPLEX 2,000 MG/50 ML BAG IVPB SCH ×3 (02:11→16:15)
[2017-09-11] MEDS: *HR* OxyCODONE Immed Rel 5 MG TABLET PO PRN ×2 (04:38→19:32)
[2017-09-11] MEDS: *HR* Heparin 5,000 UNIT/ML VIAL SQ SCH ×2 (04:46→19:33)
--- NOTE | 2017-09-11 07:34 | Palliative Progress Note ---
Date of Encounter: 09/11/17 Time of Encounter: 07:20 - Assessment and plan (1) Liver metastasis Current Visit: No Status: Chronic Assessment and plan: Probable transition to hospice on discharge. (2) Adenocarcinoma Current Visit: No Status: Chronic Assessment and plan: Patient's pain is under good control at this time per the patient, he will probably transition to hospice care on discharge. No changes today (3) Cancer associated pain Current Visit: Yes Status: Acute Assessment and plan: Per the patient the pain is under good control at this time, however the nursing staff is having to encourage him to use when necessary's. On discharge the patient will probably opt for hospice care. We will make medications a bit more available to the patient I have encouraged him to ask for them. He started on the Use of these medications we can increase his patch (4) Counseling regarding advanced care planning and goals of care Current Visit: Yes Status: Acute Assessment and plan: Patient is comfort care, plan is for hospice on discharge. At this point Megace seems to have little effect, however in all fairness it just was started. (5) Constipation Current Visit: Yes Status: Acute Assessment and plan: She is having bowel movements is on bowel regimen continue current meds Qualifiers: Constipation type: unspecified constipation type Qualified Code(s): K59.00 - Constipation, unspecified - Time Spent With Patient Total time spent is greater than 50% in coordination of care (as documented) at patient's floor/unit and/or counseling patient: - Subjective Interval history: Patient awakens easily, he states sthe meds seem to work but he is still having some pain patch seems to be effective per the patient is sitting intervals may need to be slightly decreased. However the patient is not asking for the medication. The assessment and plan. - Constitutional Vitals: Abnormal lab results WBC 16.1 K/mcL (4.3-11.1) H 09/10/17 04:38 RBC 3.21 M/mcL (4.19-5.50) L 09/10/17 04:38 Hgb 9.1 g/dL (12.9-16.9) L 09/10/17 04:38 Hct 28.5 % (37.5-50.1) L 09/10/17 04:38 RDW 22.0 % (11.5-14.5) H 09/10/17 04:38 Neutrophils # 13.4 K/mcL (1.6-8.9) H 09/10/17 04:38 Nucleated RBCs/100 WBC 0.3 /100 WBC (0) H 09/08/17 16:14 PT 15.3 Seconds (9.4-12.1) H 09/08/17 16:14 Sodium 134 mEq/L (136-145) L 09/10/17 04:38 Creatinine 0.50 mg/dL (0.70-1.30) L 09/10/17 04:38 BUN/Creatinine Ratio 38 (6-26) H 09/10/17 04:38 Glucose 138 mg/dL (70-105) H 09/10/17 04:38 POC Glucose 188 (58-89) H 09/10/17 20:19 Calcium 6.9 mg/dL (8.6-10.3) L 09/10/17 04:38 AST 57 Units/L (13-39) H 09/09/17 04:00 Alkaline Phosphatase 670 Units/L (34-104) H 09/09/17 04:00 Creatine Kinase 17 Units/L (30-223) L 09/08/17 16:14 Troponin I 0.06 ng/mL (< 0.04) H* 09/08/17 16:14 Serum Total Protein 4.7 g/dL (6.4-8.9) L 09/09/17 04:00 Albumin 1.8 g/dL (3.5-5.7) L 09/09/17 04:00 Albumin/Globulin Ratio 0.6 (1.1-2.2) L 09/09/17 04:00 Lipase 7 Units/L (11-82) L 09/08/17 16:14 Urine Clarity Cloudy (Clear) A 09/08/17 19:18 Ur Specific [place] > 1.030 (1.010-1.025) H 09/08/17 19:18 Urine Protein 30 mg/dL (Neg-Trace) H 09/08/17 19:18 Urine Blood Large (Negative) H 09/08/17 19:18 Urine Bilirubin Small (Negative) H 09/08/17 19:18 Urine Microscopic RBC TNTC per hpf (0-3) H 09/08/17 19:18 Urine Microscopic WBC 5-15 per hpf (0-3) H 09/08/17 19:18 Ur Squamous Epith Cells Many per lpf (None-Few) H 09/08/17 19:18 Staphylococcus sp PCR DETECTED (Not Detect) A 09/08/17 16:14 Staph aureus (PCR) DETECTED (Not Detect) A 09/08/17 16:14 General appearance: Present: no acute distress - Head Head exam: Present: atraumatic, normal inspection - Eye Eye exam: Present: normal appearance - ENT ENT exam: Present: mucous membranes moist - Respiratory Respiratory exam: Present: CTAB - Cardiovascular Cardiovascular exam: Present: RRR - GI/Abdominal GI/Abdominal exam: Present: normal bowel sounds, soft. Absent: tenderness - Extremities Exam Extremities exam: Present: tenderness (Tenderness in the right arm is). Absent : pedal edema (In his right arm the however) - Neurological Exam Neurological exam: Present: alert - Psychiatric Psychiatric exam: Absent: agitated, anxious - Skin Skin exam: Present: dry, warm Palliative Quality Palliative Quality: Screen for Code Status: Yes, Screen for Goals of Care: Yes, Screen for Pain: Yes, If Pain Regimen Started, Initiate Bowel Regimen: Yes, Screen for Nausea/Vomitting: Yes - Labs CBC & Chem 7: 09/10/17 04:38 09/10/17 04:38 Labs: Laboratory Results - last 24 hr 09/10/17 09/10/17 09/10/17 07:49 11:59 17:11 POC Glucose 131 H 188 H 132 H 09/10/17 20:19 POC Glucose 188 H - ABG Interpretation ABG results: PT/INR, D-dimer PT 15.3 Seconds (9.4-12.1) H 09/08/17 16:14 Consult Discharge Plan - Plan Referrals: Marcia Perez DO [Primary Care Provider] -
[2017-09-11] MEDS: Megestrol Acetate 400 MG/10 ML UDC PO SCH (07:51)
[2017-09-11] MEDS: Sennosides/Docusate Sodium TABLET PO SCH ×2 (07:51→21:36)
[2017-09-11] MEDS: Insulin LISPRO 300 UNITS/3 ML VIAL SQ SCH ×3 (07:52→19:32)
[2017-09-11] MEDS: Aspirin Enteric Coated 81 MG Tablet PO SCH (07:52)
[2017-09-11 08:33] LABS: BUN/Creatinine Ratio 35 (6-26); Blood Urea Nitrogen 17 mg/dL (8-23); Carbon Dioxide 22 mEq/L (23-29); Chloride 104 mEq/L (98-107); Glucose 167 mg/dL (70-105); Osmolality,Calculated 279 (280-300); Potassium 3.4 mEq/L (3.5-5.1); Sodium 132 mEq/L (136-145); eGFR For African Americans > 60 (> 60); eGFR For Non-African Americans > 60 (> 60)
[2017-09-11 08:35] LABS: Basophils # 0.1 K/mcL (0.0-0.2); Basophils % 0.3 %; Eosinophils % 0.2 %; Hematocrit 29.8 % (37.5-50.1); Hemoglobin 9.7 g/dL (12.9-16.9); Immature Granulocytes % 4.1 % (0-4); Lymphocytes % 10.1 %; Mean Corpuscular HGB Conc 32.6 g/dL (31.6-35.5); Mean Corpuscular Hemoglobin 28.6 pg (28.0-33.3); Mean Corpuscular Volume 87.9 fL (83.0-100.0); Mean Platelet Volume 9.5 fL (9.4-12.4); Monocytes # 1.9 K/mcL (0.0-1.3); Monocytes % 9.2 %; Neutrophils # 15.3 K/mcL (1.6-8.9); Nucleated Red Blood Cells 0.2 /100 WBC (0); Platelet Count 259 K/mcL (140-400); Red Blood Count 3.39 M/mcL (4.19-5.50); Red Cell Distribution Width 21.8 % (11.5-14.5); Segmented Neutrophils % 76.1 %
[2017-09-11] MEDS ORDERED: Calcium Gluconate 2,000 MG in 0.9 % Sodium Chloride 50 ML IVPB ONE (10:54)
[2017-09-11] MEDS ORDERED: 0.9 % Sodium Chloride 500 ML IVC STA (10:57)
[2017-09-11] MEDS: Acetaminophen 325 MG TABLET PO PRN (11:45)
[2017-09-11] MEDS: Levofloxacin 750 MG/150 ML 750 MG/150 ML BAG IVPB SCH (16:14)
--- NOTE | 2017-09-11 16:38 | Internal Med Progress Note ---
Date of Encounter: 09/11/17 Time of Encounter: 11:30 - Assessment and plan (1) Metastatic adenocarcinoma Current Visit: Yes Status: Acute Assessment and plan: Per pt history, end stage metastatic adenocarcinoma of the liver. Palliative care has been consulted and are following, pt will most likely go home on Hospice. Pt with new fx to right humerus s/p fall, probable mets to humerus Continue pain control, Fentanyl patch per palliative care. Pain is well controlled. Palliative following, I appreciate their recommendations and consultation (2) Pleural effusion Current Visit: Yes Status: Acute Assessment and plan: Pleural effusion noted on chest xray and CT, most likely infectious since pt has leukocytosis. Lungs clear and diminished with poor inspiratory effort due to pain from rib fractures. Continue IV antibiotics, 02 as needed to maintain sats > 92%. I have added Levaquin 750mg IV for increasing leukocytosis, fever, and tachycardia. Pt may require thoracentesis if symptoms do not improve simply for comfort measures. Pt placed on Cefepime for sepsis and bacteremia, discussed with Dr. Valentine, will continue to watch respiratory status and overall condition. Chest X-Ray 09/08/17 15:12 IMPRESSION: Right-sided effusion with right-sided rib fractures, and no evidence for pneumothorax. Probable humeral neck and humeral head fracture. D/ / 09/08/2017 16:22:08 Anton Rice MD / [facility] Interpreting Provider: Anton Rice MD Chest CTA 09/08/17 15:24 IMPRESSION: No evidence of pulmonary embolism or acute pulmonary abnormality. Mild perihilar edema. Increasing moderate right pleural effusion. Pathologic fracture T12 unchanged. Acute fracture right humeral head incompletely imaged. Other incidental findings as noted above unchanged. This includes a right hepatic mass. D/ / Dixon Bliss MD / Dixon Bliss MD Interpreting Provider: Dixon Bliss MD (3) Rib fractures Current Visit: Yes Status: Acute Assessment and plan: Acute right rib fractures after fall at home. Manage pain, palliative on board. Start incentive spirometry 02 as needed to maintain sats > 92%. Pt is not requiring supplemental 02. Fentanyl patch for pain control. Qualifiers: Encounter type: initial encounter Rib fracture type: multiple ribs Fracture type: closed Laterality: right Qualified Code(s): S22.41XA - Multiple fractures of ribs, right side, initial encounter for closed fracture (4) Weakness Current Visit: Yes Status: Acute Assessment and plan: Hospice at discharge. (5) Failure to thrive Current Visit: Yes Status: Acute Assessment and plan: Continue IVF hydration, replace electrolytes and treat pleural effusion, bacteremia with IV antibiotics Pt with terminal cancer and will discharge on Hospice. Qualifiers: Failure to thrive age range: in adult Qualified Code(s): R62.7 - Adult failure to thrive (6) DVT prophylaxis Current Visit: No Status: Acute Assessment and plan: Heparin SQ (7) Humeral head fracture Current Visit: Yes Status: Acute Assessment and plan: Status post fall at home. Sling to right arm. Plan as above. Qualifiers: Encounter type: initial encounter Fracture type: closed Laterality: right Qualified Code(s): S42.291A - Other displaced fracture of upper end of right humerus, initial encounter for closed fracture (8) Bacteremia Current Visit: Yes Status: Acute Assessment and plan: One set of blood cultures positive for stapylococcus aureus. I discussed with Dr. Valentine who recommended Cefepime 2grams IV x 6 weeks. Pt has port in right upper chest, pt was on chemotherapy until recently. This is the likely source of infection. Leukocytosis increased today, pt still meets sepsis criteria for fever, tachycardia, source of infection, leukocytosis. Closely monitor. Repeat peripheral blood cultures are ordered, still pending. Continue IV antibiotics and IVF hydration, I have added antibiotic coverage with LEvaquin. Monitor labs, vitals, and overall patient condition. (9) Sepsis Current Visit: Yes Status: Acute Assessment and plan: Pt meets sepsis criteria with leukocytosis, tachycardia, fever. Lactic has returned to baseline. Pt received another 1 L bolus today for tachycardia/fever. Pt has pleural effusion/suspected pneumonia and Staph aureus bacteremia. Lactic has returned to WNL. Continue IV Cefepime 2grams IV x 6 weeks and I have added IV Levaquin for pleural effusion. Monitor labs and overall patient condition. Qualifiers: Sepsis type: sepsis due to unspecified organism Qualified Code(s): A41.9 - Sepsis, unspecified organism - Subjective Interval history: Pt was seen and assessed at 1130 a.m. at bedside. He denies headache, n/v/ d, abdominal pain, dizziness, chest pain or SOB. Pt tells me this morning that he is ready to go home. I told him he would most likely go home tomorrow after hospice bed arrives. Patient states, "No, I'm ready to go home for good. " Pt states that he is ready to and that he doesn't want anything else done. He states that he knows that he will be a burden at home and he knows that his will not be able to care for him. Later in the day, patient reports that he wants to live and wants me to add new antibiotic for possible pneumonia and his pleural effusion. When the antibiotic was going to be held, he tells the nurse he does not want the antibiotic and does not want to do any more. I go back in the room to speak with him again and he agrees to try the antibiotic. Patient and family are aware of his worsening condition and sepsis. Manager French was at bedside earlier. - Constitutional Vitals: Temp Pulse Resp BP Pulse Ox 100.4 F H 112 22 128/80 93 09/11/17 14:32 09/11/17 14:32 09/11/17 14:32 09/11/17 14:32 09/11/17 14:32 General appearance: Present: cooperative, A&O X 3, pleasant, no acute distress, severe distress (due to pain), answers questions appropriately - Head Head exam: Present: atraumatic, normal inspection, normocephalic - Eye Eye exam: Present: normal appearance, conjuntiva pink, sclera anicteric - Respiratory Respiratory exam: Present: CTAB. Absent: accessory muscle use, chest wall tenderness, decreased breath sounds, rales, respiratory distress, rhonchi, wheezes - Cardiovascular Cardiovascular exam: Present: RRR, +S1, +S2. Absent: bradycardia, diastolic murmur, gallop, rubs, systolic murmur, tachycardia - GI/Abdominal GI/Abdominal exam: Present: normal bowel sounds, soft. Absent: distended, hepatomegaly, tenderness - Extremities Exam Extremities exam: Present: warm, radial pulses palpable and symmetrical. Absent : calf tenderness, cyanotic, pedal edema, tenderness - Neurological Exam Neurological exam: Present: alert, no focal deficits. Absent: facial droop, speech deficit - Skin Skin exam: Present: dry, intact, pallor, warm. Absent: rash Internal Medicine: Result - Labs CBC & Chem 7: 09/11/17 08:05 09/11/17 08:05 Labs: Short CBC 09/11/17 Range/Units 08:05 WBC 20.1 H (4.3-11.1) K/mcL Hgb 9.7 L (12.9-16.9) g/dL Hct 29.8 L (37.5-50.1) % Plt Count 259 (140-400) K/mcL Neutrophils # 15.3 H (1.6-8.9) K/mcL BMP 09/11/17 08:05 Sodium 132 L Potassium 3.4 L Chloride 104 Carbon Dioxide 22 L BUN 17 Creatinine 0.49 L Glucose 167 H Calcium 7.0 L - ABG Interpretation ABG results: PT/INR, D-dimer PT 15.3 Seconds (9.4-12.1) H 09/08/17 16:14 Consult Discharge Plan - Plan Referrals: Marcia Perez DO [Primary Care Provider] -
[2017-09-12] MEDS: Acetaminophen 325 MG TABLET PO PRN (01:05)
[2017-09-12] MEDS: CeFAZolin Premix DUPLEX 2,000 MG/50 ML BAG IVPB SCH ×2 (01:10→09:06)
[2017-09-12] MEDS: *HR* OxyCODONE Immed Rel 5 MG TABLET PO PRN (05:03)
[2017-09-12] MEDS: *HR* Heparin 5,000 UNIT/ML VIAL SQ SCH (05:19)
[2017-09-12 05:41] LABS: Basophils # 0.1 K/mcL (0.0-0.2); Basophils % 0.4 %; Eosinophils % 0.1 %; Hematocrit 34.5 % (37.5-50.1); Immature Granulocytes % 4.2 % (0-4); Lymphocytes # 1.4 K/mcL (0.6-4.6); Lymphocytes % 6.6 %; Mean Corpuscular HGB Conc 32.8 g/dL (31.6-35.5); Mean Corpuscular Hemoglobin 28.5 pg (28.0-33.3); Mean Corpuscular Volume 86.9 fL (83.0-100.0); Mean Platelet Volume 9.5 fL (9.4-12.4); Monocytes # 1.7 K/mcL (0.0-1.3); Monocytes % 8.2 %; Neutrophils # 16.8 K/mcL (1.6-8.9); Nucleated Red Blood Cells 0.1 /100 WBC (0); Platelet Count 255 K/mcL (140-400); Red Blood Count 3.97 M/mcL (4.19-5.50); Red Cell Distribution Width 21.9 % (11.5-14.5); Segmented Neutrophils % 80.5 %
[2017-09-12 05:50] LABS: Hemoglobin 11.3 g/dL (12.9-16.9)
[2017-09-12 06:18] LABS: BUN/Creatinine Ratio 31 (6-26); Blood Urea Nitrogen 16 mg/dL (8-23); Calcium 7.3 mg/dL (8.6-10.3); Carbon Dioxide 21 mEq/L (23-29); Chloride 102 mEq/L (98-107); Glucose 129 mg/dL (70-105); Osmolality,Calculated 273 (280-300); Potassium 3.8 mEq/L (3.5-5.1); Sodium 130 mEq/L (136-145); eGFR For African Americans > 60 (> 60); eGFR For Non-African Americans > 60 (> 60)
[2017-09-12] MEDS ORDERED: 0.9 % Sodium Chloride 1,000 ML IVC SCH (08:00)
[2017-09-12] MEDS: Insulin LISPRO 300 UNITS/3 ML VIAL SQ SCH ×2 (09:05→10:55)
[2017-09-12] MEDS: Aspirin Enteric Coated 81 MG Tablet PO SCH (09:06)
[2017-09-12] MEDS: Levofloxacin 750 MG/150 ML 750 MG/150 ML BAG IVPB SCH (09:07)
[2017-09-12] MEDS: Megestrol Acetate 400 MG/10 ML UDC PO SCH (09:07)
[2017-09-12] MEDS: Sennosides/Docusate Sodium TABLET PO SCH (09:07)
[2017-09-12] MEDS ORDERED: OxyCODONE CONC 5 MG/0.25 ML ORAL.SYG PO PRN (09:24)
[2017-09-12] MEDS ORDERED: *HR* LORazepam 2 MG/ML VIAL IVP PRN (09:25)
[2017-09-12] MEDS ORDERED: *HR* FentaNYL PATCH 25 MCG PATCH TD SCH (09:30)
--- NOTE | 2017-09-12 10:29 | Event Note ---
Date of Encounter: 09/12/17 Time of Encounter: 09:30 Patient with temp close to 104 this am. Very uncomfortable this am states "hurts all over". at bedside - states pt keeps repeating that he is dying. He has refused po meds and IV antibiotics. D/W - she is not comfortable taking him home in current condition. Once children arrive - will discuss GIP transition for symptom management - D/W Pamella Choe NP. Will f/u later this am.
[2017-09-12] MEDS: *HR* FentaNYL PATCH 12 MCG PATCH TD SCH (10:54)
[2017-09-12 11:46] VITALS: BP 136/91
[2017-09-12] MEDS: OXYCODONE Oral CONC 10 MG/0.5 ML ORAL.SYG PO PRN ×2 (11:52→15:13)
--- NOTE | 2017-09-12 13:21 | Discharge Summary ---
Date of Encounter: 09/12/17 Time of Encounter: 09:30 - Discharge Diagnosis (1) Metastatic adenocarcinoma Priority: Primary Status: Acute Comments: Per pt history, end stage metastatic adenocarcinoma of the liver. Palliative care has been consulted and are following, pt will be discharged to inpatient hospice. Pt with new fx to right humerus s/p fall, probable mets to humerus Continue pain control, Fentanyl patch per palliative care, dose has been increased due to increasing pain. Supportive treatment and comfort care. (2) Pleural effusion Priority: Secondary Status: Acute Comments: Pleural effusion noted on chest xray and CT, most likely infectious since pt has leukocytosis. Lungs clear and diminished with poor inspiratory effort due to pain from rib fractures. Pt is in no respiratory disress and is not requiring supplemental 02. Continue IV antibiotics, 02 as needed to maintain sats > 92%. I have added Levaquin 750mg IV for increasing leukocytosis, fever, and tachycardia. Suspect infectious process in pleural effusion. Pt may require thoracentesis if symptoms do not improve simply for comfort measures. D/w Dr. Macedo, no treatment necessary at this time. Pt placed on Cefepime for sepsis and bacteremia, discussed with Dr. Valentine. Pt has decided to withdraw care and will go to inpatient Hospice. Chest X-Ray 09/08/17 15:12 IMPRESSION: Right-sided effusion with right-sided rib fractures, and no evidence for pneumothorax. Probable humeral neck and humeral head fracture. D/ / 09/08/2017 16:22:08 Anton Rice MD / [facility] Interpreting Provider: Anton Rice MD Chest CTA 09/08/17 15:24 IMPRESSION: No evidence of pulmonary embolism or acute pulmonary abnormality. Mild perihilar edema. Increasing moderate right pleural effusion. Pathologic fracture T12 unchanged. Acute fracture right humeral head incompletely imaged. Other incidental findings as noted above unchanged. This includes a right hepatic mass. D/ / Dixon Bliss MD / Dixon Bliss MD Interpreting Provider: Dixon Bliss MD (3) Rib fractures Priority: Secondary Status: Acute Comments: Acute right rib fractures after fall at home. Manage pain, palliative on board. 02 as needed to maintain sats > 92%. Pt is not requiring supplemental 02. Comfort measures. Fentanyl patch for pain control. Qualifiers: Encounter type: initial encounter Rib fracture type: multiple ribs Fracture type: closed Laterality: right Qualified Code(s): S22.41XA - Multiple fractures of ribs, right side, initial encounter for closed fracture (4) Weakness Priority: Secondary Status: Acute (5) Failure to thrive Priority: Secondary Status: Acute Comments: Plan as above. Qualifiers: Failure to thrive age range: in adult Qualified Code(s): R62.7 - Adult failure to thrive (6) DVT prophylaxis Priority: Secondary Status: Acute Comments: Heparin SQ (7) Humeral head fracture Priority: Secondary Status: Acute Comments: Pain control, Fentanyl patch. Sling right arm Supportive care and pain management. Qualifiers: Encounter type: initial encounter Fracture type: closed Laterality: right Qualified Code(s): S42.291A - Other displaced fracture of upper end of right humerus, initial encounter for closed fracture (8) Bacteremia Priority: Secondary Status: Acute Comments: One set of blood cultures positive for stapylococcus aureus. I discussed with Dr. Valentine who recommended Cefepime 2grams IV x 6 weeks. Pt has port in right upper chest, pt was on chemotherapy until recently. This is the likely source of infection. Leukocytosis increased again today, pt still meets sepsis criteria for fever, tachycardia, source of infection, leukocytosis. Closely monitor. Repeat peripheral blood cultures are ordered, still pending. Second set of blood cultures was negative. Patient has decided to withdraw all care and will go to inpatient hospice. Continue supportive care. (9) Sepsis Priority: Secondary Status: Acute Comments: Plan as above. Patient has decided to withdraw treatment for sepsis and bacteremia. He will be moved to second floor for inpatient hospice. Qualifiers: Sepsis type: sepsis due to unspecified organism Qualified Code(s): A41.9 - Sepsis, unspecified organism - Discharge Medications Home Medications: Aspirin [Lo-Dose Aspirin EC] 81 mg PO DAILY 06/05/17 [History] Ondansetron [Zofran ODT] 8 mg SL Q4HR PRN #60 tab.rapdis 06/13/17 [Rx] Prochlorperazine Maleate [Compazine] 10 mg PO Q6HR PRN #60 tablet 06/13/17 [Rx] GlipiZIDE [Glipizide Xl] 5 mg PO DAILY 06/23/17 [History] Omeprazole [PriLOSEC] 40 mg PO BIDAC #60 capsule.dr 07/13/17 [Rx] Calcium Phosphate Trib/Vit D3 [Calcium + Vitamin D3 Gummies] 2 each PO DAILY # 60 tab.chew 08/02/17 [Rx] Sucralfate [Carafate] 1 gm PO QIDAC #1200 ml 08/02/17 [Rx] Dexamethasone 2 mg PO DAILY #15 tab 08/16/17 [Rx] Metformin HCl [Glucophage] 1,000 mg PO BID 08/16/17 [History] OxyCODONE Immed Rel [Roxicodone 5 MG] 5 mg PO BID PRN #60 tablet 09/02/17 [Rx] Sertraline [Zoloft] 50 mg PO DAILY #30 tablet 09/02/17 [Rx] Atorvastatin [Lipitor] 40 mg PO HS 09/08/17 [History] Allergies/Adverse Reactions: 3 Allergy/AdvReac Type Severity Reaction Status Date / Time morphine Allergy Vomiting Verified 08/16/17 08:46 metformin AdvReac Gastrointestinal Verified 08/16/17 08:46 Upset Date of admission: 09/08/17 21:10 Primary care physician: Robson Santoro Discharging clinician: Pamella Choe Anticipated date of discharge: 09/12/17 - Patient Status Disposition: Hospice - Medical Facility Condition: Critical Functional capacity at discharge: bed bound - Discharge Instructions Follow Up With: Marcia Perez DO [Primary Care Provider] - - Diet and Activity Diet: regular diet Hospital course: Mr. Guzman is a 77 year old male with recent history of metastatic adenocarcinoma. Primary site believed to be liver, bone metastasis discovered this visit. Patient was at home, fell and was brought to the emergency department and was found to have right rib fractures and right humerus fracture. Patient quickly deteriorated during his visit and was found to have bacteremia and sepsis. Patient had pleural effusion, as well as port that was likely the source of infection. Patient was initially treated with cefepime 2 g IV daily, leukocytosis increased and Levaquin 750mg IV was added. Leukocytosis continued to increase. I discussed prognosis and options with family, patient wavered back and forth between stating that he wanted to and that he wanted to live. stayed overnight with the patient and they discussed care plan. They have decided to withdraw treatment and patient will be taken to 2A to be admitted to inpatient hospice. Patient remains febrile with tachycardia. His respirations are not labored, he is not requiring oxygen. Patient sleeps, does arouse briefly to answer questions. - Time Spent with Patient Total time spent providing and/or coordinating discharge services: Less than 30 minutes - Constitutional Vitals: Temp Pulse Resp BP Pulse Ox 100.5 F H 134 17 136/91 94 09/12/17 11:45 09/12/17 11:45 09/12/17 11:45 09/12/17 11:45 09/12/17 11:45 General appearance: Present: cooperative, pleasant, no acute distress, severe distress (due to pain), answers questions appropriately - Head Head exam: Present: atraumatic, normal inspection, normocephalic - Eye Eye exam: Present: normal appearance, conjuntiva pink, sclera anicteric - Neck Neck exam general surgery: Present: supple, trachea midline. Absent: lymphadenopathy, tenderness, thyromegaly - Respiratory Respiratory exam: Present: CTAB. Absent: accessory muscle use, chest wall tenderness, rales, respiratory distress, rhonchi, wheezes - Cardiovascular Cardiovascular exam: Present: RRR, +S1, +S2. Absent: diastolic murmur, gallop, irregular rhythm, rubs, systolic murmur - GI/Abdominal GI/Abdominal exam: Present: normal bowel sounds, soft, no peritoneal signs. Absent: distended, hepatomegaly, splenomegaly, tenderness - Extremities Exam Extremities exam: Present: normal capillary refill, warm, radial pulses palpable and symmetrical. Absent: calf tenderness, cyanotic, pedal edema - Neurological Exam Neurological exam: Present: oriented X3, no focal deficits, strengths equal and symetr throughout. Absent: pronater drift, facial droop, speech deficit - Skin Skin exam: Present: dry, intact
== END 2017-09-12 16:21 | disposition hospice, inpatient (51) | DRG 314 ==
LOC: 3BNU 14:58 → EMEROO 14:58 → 3BNU 20:55
PROVIDERS: ADMIT Pediatrics; ATTEND Registered Nurse

== ENCOUNTER 2017-09-12 12:52 | Inpatient (IN) ==
[2017-09-12] MEDS ORDERED: Bisacodyl 10 MG RECTAL SUPPOSITORY RC PRN (13:53)
[2017-09-12] MEDS ORDERED: Acetaminophen 650 MG RECTAL SUPP RC PRN (13:53)
[2017-09-12] MEDS ORDERED: Ondansetron 4 MG/2 ML VIAL IVP PRN (13:53)
[2017-09-12] MEDS ORDERED: OxyCODONE CONC 5 MG/0.25 ML ORAL.SYG PO PRN (13:53)
[2017-09-12] MEDS ORDERED: *HR* LORazepam 2 MG/ML VIAL IVP PRN (13:53)
[2017-09-12] MEDS ORDERED: Acetaminophen 325 MG TABLET PO PRN (13:53)
[2017-09-12] MEDS ORDERED: *HR* FentaNYL PATCH 25 MCG PATCH TD SCH (14:00)
--- NOTE | 2017-09-12 14:29 | Palliative - Consult Note ---
Date of Encounter: 09/12/17 Time of Encounter: 14:00 - Assessment and Plan (1) Cancer associated pain Status: Acute Assessment and plan: Pain worse today - pt states "all over". Will increase Fentanyl patch to 2mcg and increase Oxycodone to 10mg hourly PRN and monitor. Titrate as needed (2) Anxiety Status: Acute Assessment and plan: Will begin IV Lorazepam and monitor (3) Sepsis Status: Acute Assessment and plan: Acetaminophen for fever. Antibiotics will be D/C'd Qualifiers: Sepsis type: sepsis due to unspecified organism Qualified Code(s): A41.9 - Sepsis, unspecified organism (4) Metastatic adenocarcinoma Status: Acute (5) Humeral head fracture Status: Acute Assessment and plan: Continue sling for support/pain management Qualifiers: Encounter type: initial encounter Fracture type: closed Laterality: right Qualified Code(s): S42.291A - Other displaced fracture of upper end of right humerus, initial encounter for closed fracture Palliative-CN HPI - Data of Consult Consult date: 09/12/17 Requesting Physician: Sami Duncan MD - Consult Narrative History of present illness: Mr. Guzman is a 77 year old male with a history of metastatic cancer, most likely liver with extensive bone mets, who was admitted to the hospital with weakness, falls, and increasing pain. He has had 2 falls within the last couple of weeks at home. He has been patient of [facility] with Dr. Simmons. He was diagnosed in May 2017 after his abd/hip pain worsened , for what was thought to be arthritis. He decided to pursue chemotherapy treatment that was not tolerated well. , Joy, at bedside states he was "taking a break" from treatment to try and regain some strength, but since that time has had increasing weakness/falls, decreasing appetite, and mood changes. He was recently started on Sertraline for depression. He had an admission earlier this month for dehydration after chemotherapy. Testing upon admission demonstrated right sided rib fractures, cervical spine lesions, as well as rt humerus likely disease and acute fractures. 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 Patient has done poorly during admission, and now has increasing leukocytosis and febrile up to 103.9. Increasing pain and discomfort. Not taking anything oral and refusing oral medications. Spoke with with and daughter this am - they had planned on taking him home with hospice care, however, with his increased fever and pain, we will transition to general inpt hospice, with the hope of getting him home later this week. CC: Sami Duncan MD Past Med Surg Social Fam HX - Past Medical History Medical history: cancer (metastatic adenocarcinoma of liver/biliary system), diabetes, hypertension Psychiatric history: no psych history - Past Surgical History Surgical History: herniorrhaphy - Social History Smoking Status: Never smoker Smokeless Tobacco Status: No Alcohol use: none Drug use: none - Family History Mother Hx Family GI Disorders: No Father Hx Family Cardiac Disorders: Yes (CAD) Hx Family Cancer: Yes (Prostate) Medications and Allergies Aspirin [Lo-Dose Aspirin EC] 81 mg PO DAILY 06/05/17 [History] Ondansetron [Zofran ODT] 8 mg SL Q4HR PRN #60 tab.rapdis 06/13/17 [Rx] Prochlorperazine Maleate [Compazine] 10 mg PO Q6HR PRN #60 tablet 06/13/17 [Rx] GlipiZIDE [Glipizide Xl] 5 mg PO DAILY 06/23/17 [History] Omeprazole [PriLOSEC] 40 mg PO BIDAC #60 capsule.dr 07/13/17 [Rx] Calcium Phosphate Trib/Vit D3 [Calcium + Vitamin D3 Gummies] 2 each PO DAILY # 60 tab.chew 08/02/17 [Rx] Sucralfate [Carafate] 1 gm PO QIDAC #1200 ml 08/02/17 [Rx] Dexamethasone 2 mg PO DAILY #15 tab 08/16/17 [Rx] Metformin HCl [Glucophage] 1,000 mg PO BID 08/16/17 [History] OxyCODONE Immed Rel [Roxicodone 5 MG] 5 mg PO BID PRN #60 tablet 09/02/17 [Rx] Sertraline [Zoloft] 50 mg PO DAILY #30 tablet 09/02/17 [Rx] Atorvastatin [Lipitor] 40 mg PO HS 09/08/17 [History] 3 Allergy/AdvReac Type Severity Reaction Status Date / Time morphine Allergy Vomiting Verified 08/16/17 08:46 metformin AdvReac Gastrointestinal Verified 08/16/17 08:46 Upset ROS unobtainable: due to mental status Palliative Care-Exam - Constitutional General appearance: Present: no acute distress - Head Head Exam: Present: normal inspection, normocephalic - Eye Eye exam: Present: normal appearance, PERRL - Respiratory Respiratory exam: Present: decreased breath sounds, CTAB Additional comments: Shallow inspiratory effort - Cardiovascular Cardiovascular exam: Present: +S1, +S2 - GI/Abdominal Exam GI/Abdominal exam: Present: normal bowel sounds, soft - Extremities Exam Additional comments: 2+ edema bilateral lower extremities - Neurological Exam Neurological exam: Present: alert Additional comments: Oriented to name and place, generalized weakness, - Skin Skin exam: Present: dry, pallor, warm Palliative Quality Palliative Quality: Screen for Code Status: Yes, Screen for Goals of Care: Yes, Screen for Pain: Yes, If Pain Regimen Started, Initiate Bowel Regimen: Yes, Screen for Nausea/Vomitting: Yes Code Status: 09/12/17 13:53 Resuscitation Status: Active [RES] Routine Comment: Resuscitation Status: DNR-Comfort Care
[2017-09-12] MEDS: OXYCODONE Oral CONC 10 MG/0.5 ML ORAL.SYG PO PRN ×2 (17:14→21:03)
[2017-09-13] MEDS: OXYCODONE Oral CONC 10 MG/0.5 ML ORAL.SYG PO PRN ×2 (00:25→04:08)
[2017-09-13 00:28] VITALS: BP 122/78
[2017-09-13] MEDS: Atropine Sulfate 1% 40 DROP/2 ML BOTTLE SL PRN ×2 (04:08→05:19)
--- NOTE | 2017-09-13 09:09 | Death Note ---
Discharge Sum: Summary - Date and Time Date of admission: 09/12/17 16:06 Date of : 09/13/17 Time of : 07:31 - Summary Details: Patient was admitted as general inpatient hospice pt yesterday for symtpom management and pain control for his metastatic cancer. His condition deteriorated early this am, and he passed peacefully at 0731. Family was not at bedside, but called by nurse. Student was with patient while he . FAmily arrived shortly after. Emotional support given - Additional Data Confirmation of as documented by pronouncing clinician: no pulse, no respirations, no heart sounds Family: contacted Additional persons at bedside: dorota Attending/PCP notified?: Yes Attending physician: Sami Duncan MD Was code activated?: No Autopsy requested?: No Hospice patient?: Yes Discharge Sum: Diag - PCOD Probable Cause of : Respiratory arrest Discharge Sum: Prov - Provider Admitting clinician: Sami Duncan Consults: 09/12/17 13:54 Consult to Palliative Care [CONS] Routine Comment: Consulting Provider: Palliative Care [facility] Reason for Consult: GIP Call Completed: No
--- NOTE | 2017-09-13 14:45 | Pallative History & Physical ---
Date of Encounter: 09/13/17 Time of Encounter: 14:43 Assessment and Plan (1) Liver metastasis Status: Chronic Patient before being seen by myself today, did see the patient over the course of the weekend. He see the consultation from palliative care for details of the history and physical. Internal Medicine - H&P: HPI History of present illness: Mr. Guzman is a 77 year old male Patient before being seen for history and physical. Had examine the patient over the course of the weekend, was admitted to general inpatient hospice yesterday H&P will be the consultation report done by nurse practitioner the patient passed today before I had a chance to see him. Past Med Surg Social Fam HX - Past Medical History Medical history: cancer, diabetes, hypertension Psychiatric history: no psych history - Past Surgical History Surgical History: herniorrhaphy - Social History Smoking Status: Never smoker Smokeless Tobacco Status: No Alcohol use: none Drug use: none - Family History Mother Hx Family GI Disorders: No Father Hx Family Cardiac Disorders: Yes (CAD) Hx Family Cancer: Yes (Prostate) Internal Medicine - H&P: Meds Aspirin [Lo-Dose Aspirin EC] 81 mg PO DAILY 06/05/17 [History] Ondansetron [Zofran ODT] 8 mg SL Q4HR PRN #60 tab.rapdis 06/13/17 [Rx] Prochlorperazine Maleate [Compazine] 10 mg PO Q6HR PRN #60 tablet 06/13/17 [Rx] GlipiZIDE [Glipizide Xl] 5 mg PO DAILY 06/23/17 [History] Omeprazole [PriLOSEC] 40 mg PO BIDAC #60 capsule.dr 07/13/17 [Rx] Calcium Phosphate Trib/Vit D3 [Calcium + Vitamin D3 Gummies] 2 each PO DAILY # 60 tab.chew 08/02/17 [Rx] Sucralfate [Carafate] 1 gm PO QIDAC #1200 ml 08/02/17 [Rx] Dexamethasone 2 mg PO DAILY #15 tab 08/16/17 [Rx] Metformin HCl [Glucophage] 1,000 mg PO BID 08/16/17 [History] OxyCODONE Immed Rel [Roxicodone 5 MG] 5 mg PO BID PRN #60 tablet 09/02/17 [Rx] Sertraline [Zoloft] 50 mg PO DAILY #30 tablet 09/02/17 [Rx] Atorvastatin [Lipitor] 40 mg PO HS 09/08/17 [History] 3 Allergy/AdvReac Type Severity Reaction Status Date / Time morphine Allergy Vomiting Verified 08/16/17 08:46 metformin AdvReac Gastrointestinal Verified 08/16/17 08:46 Upset Palliative Care-Exam - Constitutional Vitals: Temp Pulse Resp BP Pulse Ox 100.0 F H 119 20 122/78 90 09/13/17 04:11 09/13/17 00:27 09/13/17 00:27 09/13/17 00:27 09/13/17 00:27 General appearance: Present: no acute distress Palliative Quality Palliative Quality: Screen for Code Status: Yes, Screen for Goals of Care: Yes, Screen for Pain: Yes, If Pain Regimen Started, Initiate Bowel Regimen: Yes, Screen for Nausea/Vomitting: Yes Code Status: 09/12/17 13:53 Resuscitation Status: Active [RES] Routine Comment: Resuscitation Status: DNR-Comfort Care
== END 2017-09-13 13:19 | disposition expired | DRG 872 ==
LOC: 2ANU 16:06
PROVIDERS: ADMIT Family Medicine Hospice and Palliative Medicine; ATTEND Family Medicine Hospice and Palliative Medicine